=== PATIENT | female | born 1965 | race Caucasian/White ===

== ENCOUNTER 2016-11-06 16:50 | Emergency (ER) | payer OTHER ==
[2016-11-06] MEDS ORDERED: KETOROLAC 30 MG/ML 1 ML VIAL IVP STA (18:46)
[2016-11-06] MEDS ORDERED: SODIUM CHLORIDE 0.9% 1,000 ML IV STA (18:46)
--- NOTE | 2016-11-06 19:05 | ED ---
Abdominal Pain HPI - General Chief Complaint: Abdominal Pain Stated Complaint: Pelvic Pain, Female Time Seen by Provider: 11/06/16 18:41 Source: patient, RN notes reviewed Mode of arrival: wheelchair Limitations: no limitations - History of Present Illness Initial Comments: 51 yo female presents to the ER with cc of left lower quadrant abdominal pain times one day. Patient states she was worked up and she does appear to have a left ovarian cyst as well as a left renal cyst. Patient states the pain STARTED 2 HOURS AGO. Patient states that it started suddenly. Patient states that she hasn't had any fever chills nausea vomiting with this. Patient states that she was concerned due to the fact that the sudden pain so she thought that she should be seen. Patient is holding the left lower pelvic area on exam. Patient denies any recent fever, chills, shortness of breath, chest pain, back pain, nausea vomiting, numbness or tingling, dysuria or hematuria, constipation or diarrhea, headaches or visual changes, or any other current symptoms. - Related Data Home Medications Medication Instructions Recorded Confirmed Atenolol [Tenormin] 25 mg PO BID 08/05/14 11/06/16 Budesonide-Formot 160-4.5 Mcg 2 puff INHALATION RT-BID 08/05/14 11/06/16 [Symbicort 160-4.5 Mcg Inhaler] Loratadine [Claritin] 10 mg PO HS 08/05/14 11/06/16 Albuterol Nebulized [Ventolin 2.5 mg INHALATION RT-TID PRN 11/06/16 11/06/16 Nebulized] Atorvastatin [Lipitor] 20 mg PO DAILY 11/06/16 11/06/16 Furosemide [Lasix] 20 mg PO DAILY 11/06/16 11/06/16 Ipratropium Nebulized [Atrovent 0.5 mg INHALATION RT-TID PRN 11/06/16 11/06/16 Nebulized] Isosorbide Mononitrate ER [Imdur] 30 mg PO DAILY 11/06/16 11/06/16 Previous Rx's Medication Instructions Recorded traMADol HCl [Ultram] 50 mg PO Q4H PRN #20 tab 11/06/16 Allergies Allergy/AdvReac Type Severity Reaction Status Date / Time alprazolam [From Xanax] Allergy Anaphylaxis Verified 11/06/16 18:53 aspirin Allergy Rash/Hives Verified 11/06/16 18:53 azithromycin Allergy Unknown Verified 11/06/16 18:53 bupropion HCl [From Zyban] Allergy Rash/Hives Verified 11/06/16 18:53 codeine Allergy Anaphylaxis Verified 11/06/16 18:53 hydrocodone [From Stephan] Allergy Rash/Hives Verified 11/06/16 18:53 Latex, Natural Rubber Allergy Rash/Hives, Verified 11/06/16 18:53 throat swelling levofloxacin [From Levaquin] Allergy Anaphylaxis Verified 11/06/16 18:53 Penicillins Allergy Rash/Hives Verified 11/06/16 18:53 Review of Systems ROS Statement: Those systems with pertinent positive or pertinent negative responses have been documented in the HPI. ROS Other: All systems not noted in ROS Statement are negative. Past Medical History Past Medical History: Asthma, GERD/Reflux, Hypertension, Skin Disorder Additional Past Medical History / Comment(s): heart murmur as a teen History of Any Multi-Drug Resistant Organisms: None Reported Past Surgical History: Appendectomy, Cholecystectomy, Hernia Repair, Hysterectomy, Tonsillectomy, Tubal Ligation Past Anesthesia/Blood Transfusion Reactions: No Reported Reaction Past Psychological History: Depression Smoking Status: Former smoker Past Alcohol Use History: None Reported Past Drug Use History: None Reported - Past Family History Brother(s) Family Medical History: Deep Vein Thrombosis (DVT) General Exam - General Exam Comments Initial Comments: General: The patient is awake and alert, in no distress, and does not appear acutely ill. Eye: Pupils are equal, round. Ears, nose, mouth and throat: There are moist mucous membranes. Neck: The neck is supple, there is no tenderness. Cardiovascular: There is a regular rate and rhythm. No murmur, rub or gallop is appreciated. Respiratory: Lungs are clear to auscultation, respirations are non-labored, breath sounds are equal. No wheezes, stridor, rales, or rhonchi. Gastrointestinal: Soft, non-distended, non-tender abdomen without masses or organomegaly noted. There is no rebound or guarding present. No CVA tenderness. Bowel sounds are unremarkable. Back: There is no tenderness to palpation in the midline. There is no obvious deformity. No rashes noted. Musculoskeletal: Normal ROM, no tenderness, There is no pedal edema. There is no calf tenderness or swelling. Sensation intact. Pulses equal bilaterally 2+. Neurological: CN II-XII intact, There are no obvious motor or sensory deficits. Coordination appears grossly intact. Speech is normal. Skin: Skin is warm and dry and no rashes or lesions are noted. Psychiatric: Cooperative, appropriate mood & affect, normal judgment. Limitations: no limitations Course Vital Signs 11/06/16 17:07 Temperature 98.7 F Pulse Rate 101 H Respiratory 20 Rate Blood Pressure 151/80 O2 Sat by Pulse 99 Oximetry Medical Decision Making - Medical Decision Making 51-year-old female presents emergency Department chief complaint of left lower quadrant pain. x ray tech report was reviewed that does show a left ovarian cyst as well as a systemic patient's kidney. This does not appear to be any torsion. At this time we discussed patient's pain is most likely from her ovarian cyst due to the location of the pain. Patient's blood work is otherwise negative. This time we did discuss that we will give her tramadol the fact that she is ALLERGIC to Stephan that she was given for home. We discussed return parameters and follow-up with the patient. She states that she understands is in agreement with the plan. All her questions have been answered. She will be discharged. - Lab Data Result diagrams: 11/06/16 19:10 11/06/16 19:10 Lab Results 11/06/16 11/06/16 11/06/16 Range/Units 19:10 19:10 19:10 WBC 6.8 (3.8-10.6) k/uL RBC 4.39 (3.80-5.40) m/uL Hgb 12.7 (11.4-16.0) gm/dL Hct 38.2 (34.0-46.0) % MCV 87.1 (80.0-100.0) fL MCH 29.0 (25.0-35.0) pg MCHC 33.3 (31.0-37.0) g/dL RDW 12.9 (11.5-15.5) % Plt Count 311 (150-450) k/uL Neutrophils % 62 % Lymphocytes % 28 % Monocytes % 5 % Eosinophils % 2 % Basophils % 1 % Neutrophils # 4.2 (1.3-7.7) k/uL Lymphocytes # 1.9 (1.0-4.8) k/uL Monocytes # 0.3 (0-1.0) k/uL Eosinophils # 0.2 (0-0.7) k/uL Basophils # 0.0 (0-0.2) k/uL Sodium 141 (137-145) mmol/L Potassium 4.7 (3.5-5.1) mmol/L Chloride 105 (98-107) mmol/L Carbon Dioxide 26 (22-30) mmol/L Anion Gap 10 mmol/L BUN 6 L (7-17) mg/dL Creatinine 0.70 (0.52-1.04) mg/dL Est GFR (MDRD) Af Amer >60 (>60 ml/min/1.73 sqM) Est GFR (MDRD) Non-Af >60 (>60 ml/min/1.73 sqM) Glucose 94 (74-99) mg/dL Calcium 9.3 (8.4-10.2) mg/dL Total Bilirubin 0.3 (0.2-1.3) mg/dL AST 21 (14-36) U/L ALT 29 (9-52) U/L Alkaline Phosphatase 94 (38-126) U/L Total Protein 7.3 (6.3-8.2) g/dL Albumin 3.9 (3.5-5.0) g/dL Urine Color Light Yellow Urine Appearance Clear (Clear) Urine pH 6.5 (5.0-8.0) Ur Specific [place] 1.002 (1.001-1.035) Urine Protein Negative (Negative) Urine Glucose (UA) Negative (Negative) Urine Ketones Negative (Negative) Urine Blood Negative (Negative) Urine Nitrate Negative (Negative) Urine Bilirubin Negative (Negative) Urine Urobilinogen <2.0 (<2.0) mg/dL Ur Leukocyte Esterase Negative (Negative) - Radiology Data Radiology results: image reviewed Disposition Clinical Impression: Left ovarian cyst, Kidney cysts Disposition: HOME SELF-CARE Condition: Stable Instructions: Ovarian Cyst (ED) Additional Instructions: Please use medication as discussed. Please follow up with family doctor if symptoms have not improved over the next two days. Please return to the emergency room if your symptoms increase or worsen or for any other concerns. Prescriptions: traMADol HCl [Ultram] 50 mg PO Q4H PRN #20 tab PRN Reason: Pain Referrals: Florinda Matos MD [Primary Care Provider] - 1-2 days Time of Disposition: 20:09
[2016-11-06 19:22] LABS: Appearance,Urine Clear (Clear); Bilirubin,Urine Negative (Negative); Glucose,Urine (UA) Negative (Negative); Ketones,Urine Negative (Negative); Leukocyte Esterase,Urine Negative (Negative); Nitrite,Urine Negative (Negative); PH, Urine 6.5 (5.0-8.0); Protein,Urine Negative (Negative); Specific Gravity,Urine 1.002 (1.001-1.035); UA Billing (MACRO vs. MICRO) CHEM; Urobilinogen,Urine <2.0 mg/dL (<2.0)
[2016-11-06 19:23] LABS: Basophils % (A) 1 %; CH 28.3; CHCM 32.6; Eosinophils # (A) 0.2 k/uL (0-0.7); Eosinophils % (A) 2 %; HCT 38.2 % (34.0-46.0); HDW 2.43; HGB 12.7 gm/dL (11.4-16.0); Luc # (Auto) 0.12; Luc % (Auto) 2; Lymphocytes # (A) 1.9 k/uL (1.0-4.8); Lymphocytes % (A) 28 %; MCHC 33.3 g/dL (31.0-37.0); MCV 87.1 fL (80.0-100.0); Mean Platelet Volume 7.3; Monocytes # (A) 0.3 k/uL (0-1.0); Monocytes % (A) 5 %; Neutrophils # (A) 4.2 k/uL (1.3-7.7); Neutrophils % (A) 62 %; RBC 4.39 m/uL (3.80-5.40); RDW 12.9 % (11.5-15.5); WBC 6.8 k/uL (3.8-10.6); WBC (Perox) 6.89
[2016-11-06 19:34] LABS: ALT 29 U/L (9-52); AST 21 U/L (14-36); Alkaline Phosphatase 94 U/L (38-126); Anion Gap 10 mmol/L; Blood Urea Nitrogen 6 mg/dL (7-17); Calcium 9.3 mg/dL (8.4-10.2); Carbon Dioxide 26 mmol/L (22-30); Chloride 105 mmol/L (98-107); Glucose 94 mg/dL (74-99); Non-African American GFR(MDRD) >60 (>60 ml/min/1.73 sqM); Potassium 4.7 mmol/L (3.5-5.1); Sodium 141 mmol/L (137-145); Total Bilirubin 0.3 mg/dL (0.2-1.3); Total Protein 7.3 g/dL (6.3-8.2)
--- NOTE | 2016-11-06 20:16 | US ---
EXAMINATION TYPE: US transvaginal DATE OF EXAM: 11/06/2016 7:56 PM COMPARISON: NONE CLINICAL HISTORY: Pelvic Pain.History of Partial hysterectomy TECHNIQUE: Transvaginal (TV) EXAM MEASUREMENTS: Uterus: Surgically absent Endometrial Stripe: Surgically absent Right Ovary: 2.1 x 1.5 x 1.4 cm Left Ovary: 5.2 x 3.2 x 3.3 cm TECHNOLOGIST IMPRESSION: 1. Uterus: Surgically absent 2. Endometrium: Surgically absent 3. Right Ovary: Pedunculated cystic area visualized measuring 0.7cm 4. Left Ovary: Two cystic areas visualized, largest measuring 4.0 x 3.1 x 2.9 Spectral, color and waveform doppler imaging shows good arterial and venous flow within the ovaries ; there is no evidence for ovarian torsion. 5. Bilateral Adnexa: wnl 6. Posterior cul-de-sac: wnl IMPRESSION: There is normal arterial waveform in the ovarian arteries on the color Doppler images. No evidence of torsion. Simple dominant 4 x 3 cm cyst on the left ovary. No solid pelvic mass. Hysterec erin noted.
--- NOTE | 2016-11-06 20:18 | US ---
EXAMINATION TYPE: US kidneys/renal and bladder DATE OF EXAM: 11/06/2016 7:46 PM COMPARISON: NONE CLINICAL HISTORY: Pain. History of renal cyst per patient. Very difficult/limited exam due to patient body habitus EXAM MEASUREMENTS: Right Kidney: 9.3 x 4.5 x 4.7 cm Left Kidney: 9.4 x 5.5 x 5.1 cm TECHNOLOGIST IMPRESSION: Right Kidney: No hydronephrosis or masses seen Left Kidney: Cyst visualized in the upper pole measuring 7.5 x 7.3 x 6.7 cm Bladder: wnl Bilateral Jets seen: No, not able to visualize bilateral jets after 3 minutes of scanning IMPRESSION: There is a large cyst that measures 7 cm on the upper pole of the left kidney. No solid renal mass. N o hydronephrosis. Urinary bladder appears normal.
[2016-11-06 20:32] VITALS: BP 126/61; PULSE 85; RESP 18; TEMP 98.2
== END 2016-11-06 20:32 | disposition home or self-care (01) ==
LOC: EC 16:50
DX: N83.202 Unspecified ovarian cyst, left side (principal); N28.1 Cyst of kidney, acquired; I10 Essential (primary) hypertension; Z79.899 Other long term (current) drug therapy; Z79.51 Long term (current) use of inhaled steroids; Z87.891 Personal history of nicotine dependence; Z88.0 Allergy status to penicillin; Z88.5 Allergy status to narcotic agent; Z88.8 Allergy status to other drugs, medicaments and biological substances; Z88.6 Allergy status to analgesic agent; Z88.1 Allergy status to other antibiotic agents; Z91.040 Latex allergy status
CPT/HCPCS: 36415; 80053; 85025; 81003; 87086; 93975; 76830; 76770; 99284; 96361; 96374; J1885

== ENCOUNTER → 2016-12-05 | Outpatient (CLI) | payer OTHER ==
--- NOTE | 2016-12-05 15:16 | US ---
EXAMINATION TYPE: US transvaginal DATE OF EXAM: 12/05/2016 1:49 PM COMPARISON: US on PACS November 06, 2016. CLINICAL HISTORY: Left ovarian Cyst N83.20. Prior abnormal ultrasound. TECHNIQUE: Transvaginal (TV) Date of LMP: Uterus removed EXAM MEASUREMENTS: Uterus: Surgically absent cm Endometrial Stripe: Surgically absent cm Right Ovary: 3.6 x 2.1 x 1.7 cm Left Ovary: 3.1 x 1.8 x 1.5 cm 1. Uterus: Surgically Absent 2. Endometrium: Surgically Absent 3. Right Ovary: With follicles. Largest = 1.1 x 1.3 x 1.1 cm 4. Left Ovary: With follicles. Largest = 1.5 x 1.1 x 1.4 cm 5. Bilateral Adnexa: wnl 6. Posterior cul-de-sac: wnl Technically difficult exam d/t pt pain. Peripheral follicles are scattered throughout right ovary sli ghtly larger in size versus prior exam. There are scattered small cystic lesions in left ovary. Previ ously visualized 4.0 cm cystic lesion is not clearly seen. Largest lesion measures up to 1.5 cm on lo ng axis. IMPRESSION: Nonvisualization of prior 4 cm cystic lesion left ovary is consistent with follicular cys t and interval resolution. No suspicious new lesion identified.
== END | disposition home or self-care (01) ==
LOC: RADUSWWP 12:42
PROVIDERS: ATTEND Obstetrics & Gynecology
DX: N83.202 Unspecified ovarian cyst, left side (principal); N83.8 Other noninflammatory disorders of ovary, fallopian tube and broad ligament
CPT/HCPCS: 36415; 76830; 86304

== ENCOUNTER → 2016-12-13 | Day surgery (SDC) | payer OTHER ==
[~2016-12-13] MED LIST: traMADol 50 MG TAB PO STA
[2016-12-13 09:42] LABS: Mean Platelet Volume 7.8
[2016-12-13 09:45] LABS: Prothrombin Time 10.1 sec (9.0-12.0)
[2016-12-13 13:32] VITALS: RESP 18
[2016-12-13 15:43] VITALS: BP 131/66; PULSE 66; TEMP 98.2
--- NOTE | 2016-12-13 15:51 | CT ---
EXAMINATION TYPE: CT guided renal cyst drainage DATE OF EXAM: 12/13/2016 11:49 AM COMPARISON: Ultrasound kidneys October HISTORY: Renal cyst drainage CT DLP: 1616 mGycm Automated exposure control for dose reduction was used. FINDINGS: Maximal barrier technique was utilized. Skin overlying a suitable path to the patient's renal cyst wa s localized with CT and the overlying skin prepped and draped. Lidocaine used for local anesthesia. A skin zain made with a scalpel. A 5 Tamazight catheter was introduced using trocar technique and serous fluid was aspirated from the cyst. Approximately 300 cc of serous fluid were drained. Following the p rocedure catheter was removed and hemostasis achieved. There is no immediate consultation. Patient re mained in stable condition. IMPRESSION: STATUS POST ASPIRATION OF RENAL CYST, THIS PROCEDURE PERFORMED BY THE UNDERSIGNED.
== END ==
LOC: RADPROMAIN 09:08
PROVIDERS: ATTEND Physician Assistant
DX: N28.1 Cyst of kidney, acquired (principal); Z88.0 Allergy status to penicillin; Z88.8 Allergy status to other drugs, medicaments and biological substances; Z88.6 Allergy status to analgesic agent; Z88.1 Allergy status to other antibiotic agents; Z91.012 Allergy to eggs; Z91.040 Latex allergy status; Z88.5 Allergy status to narcotic agent; Z91.018 Allergy to other foods
CPT/HCPCS: 50390; 75989; 77012; 85049; 85610

== ENCOUNTER → 2017-04-17 | Outpatient (CLI) | payer OTHER ==
--- NOTE | 2017-04-23 13:20 | P.ARTDOP ---
Arterial Doppler LOWER EXTREMITY ARTERIAL DOPPLER: DATE OF SERVICE: 04/17/2017 Reason for study: Pain in the left calf with walking and at rest. Doppler waveforms: Multiphasic bilaterally throughout. Pulse volume recording: []. Pressure gradients: None. Ankle-brachial indices: Greater than 1 bilaterally. Toe pressures: 110 on the right, 113 on the left Impression: Normal study.
== END | disposition home or self-care (01) ==
LOC: RADUSWWP 10:16
PROVIDERS: ATTEND Internal Medicine
DX: R60.9 Edema, unspecified (principal)
CPT/HCPCS: 93923

== ENCOUNTER → 2017-05-27 | Outpatient (CLI) | payer OTHER ==
[2017-05-27 09:29] LABS: Basophils % (A) 0 %; CH 28.7; CHCM 32.3; Eosinophils # (A) 0.2 k/uL (0-0.7); Eosinophils % (A) 3 %; HCT 38.2 % (34.0-46.0); HDW 2.47; Luc # (Auto) 0.09; Luc % (Auto) 2; Lymphocytes # (A) 1.3 k/uL (1.0-4.8); Lymphocytes % (A) 20 %; MCHC 31.3 g/dL (31.0-37.0); MCV 89.3 fL (80.0-100.0); Mean Platelet Volume 7.4; Monocytes # (A) 0.3 k/uL (0-1.0); Monocytes % (A) 5 %; Neutrophils # (A) 4.4 k/uL (1.3-7.7); Neutrophils % (A) 71 %; RBC 4.28 m/uL (3.80-5.40); RDW 15.2 % (11.5-15.5); WBC 6.3 k/uL (3.8-10.6); WBC (Perox) 6.28
[2017-05-27 09:33] LABS: Appearance,Urine Cloudy (Clear); Bacteria,Urine Rare /hpf; Bilirubin,Urine Negative (Negative); Glucose,Urine (UA) Negative (Negative); Ketones,Urine Negative (Negative); Leukocyte Esterase,Urine Negative (Negative); Mucus,Urine Rare /hpf; Nitrite,Urine Negative (Negative); PH, Urine 5.5 (5.0-8.0); Particle Count 2191; Protein,Urine Negative (Negative); RBC,Urine 1 /hpf (0-5); Specific Gravity,Urine 1.005 (1.001-1.035); Squamous Epithelial Cell,Urine 6 /hpf (0-4); UA Billing (MACRO vs. MICRO) MICRO; Urobilinogen,Urine <2.0 mg/dL (<2.0); WBC,Urine 1 /hpf (0-5)
[2017-05-27 09:35] LABS: Anion Gap 12 mmol/L; Blood Urea Nitrogen 7 mg/dL (7-17); Calcium 9.2 mg/dL (8.4-10.2); Carbon Dioxide 22 mmol/L (22-30); Chloride 107 mmol/L (98-107); Glucose 86 mg/dL (74-99); Non-African American GFR(MDRD) >60 (>60 ml/min/1.73 sqM); Potassium 4.3 mmol/L (3.5-5.1); Sodium 141 mmol/L (137-145)
== END | disposition home or self-care (01) ==
LOC: LABWHC1 08:58
PROVIDERS: ATTEND Urology
DX: I10 Essential (primary) hypertension (principal); N28.1 Cyst of kidney, acquired; Z01.812 Encounter for preprocedural laboratory examination
CPT/HCPCS: 36415; 80048; 81001; 85025; 87086

== ENCOUNTER 2017-06-04 07:04 | Inpatient (IN) | payer OTHER ==
[2017-05-30 15:50] VITALS: BMI 40.7
[~2017-06-04 07:04] MED LIST changes: +LACTATED RINGERS 1,000 ML IV SCH; +Pre Op ABX Message 1 EACH MISC MISCELLANE ONE; +fentaNYL (PF) 50 MCG/ML 2 ML AMP IV PRN; -traMADol 50 MG TAB PO STA
[2017-06-04] MEDS ORDERED: LIDOCAINE 1% 20 ML VIAL (10MG/ML) FOR IV START INTRADERMA ONE (08:00)
[2017-06-04] MEDS ORDERED: ONDANSETRON 4 MG/2 ML VIAL IVP ONE (08:06)
[2017-06-04] MEDS ORDERED: SCOPOLAMINE 1.5MG/72HR PATCH TRANSDERM ONE (08:09)
[2017-06-04] MEDS ORDERED: DEXAMETHASONE SOD PHOS (MDV) 100 MG/10 ML VIAL IVP ONE (08:09)
[2017-06-04] MEDS ORDERED: NEOSTIGMINE 1 MG/ML 10 ML VIAL ONE (08:27)
[2017-06-04] MEDS ORDERED: HYDROmorphone (PF) 1 MG/ML ONE (08:27)
[2017-06-04] MEDS ORDERED: SUCCINYLCHOLINE CHLORIDE 100 MG/5 ML SYR IV ONE (08:27)
[2017-06-04] MEDS ORDERED: GLYCOPYRROLATE 0.2 MG/ML 2 ML VIAL ONE (08:27)
[2017-06-04] MEDS ORDERED: fentaNYL (PF) 50 MCG/ML 2 ML AMP ONE (08:27)
[2017-06-04] MEDS ORDERED: PROPOFOL 10 MG/ML 20 ML VIAL IV ONE (08:27)
[2017-06-04] MEDS ORDERED: MIDAZOLAM 2 MG/2 ML VIAL ONE (08:27)
[2017-06-04] MEDS ORDERED: ROCURONIUM BROMIDE 10 MG/ML 10 ML VIAL IV ONE (08:27)
[2017-06-04] MEDS ORDERED: PHENYLEPHRINE-0.9% NACL SYG 1 MG/10 ML SYRINGE ONE (08:27)
[2017-06-04] MEDS ORDERED: ONDANSETRON 4 MG/2 ML VIAL IVP PRN (10:22)
[2017-06-04] MEDS ORDERED: NALOXONE 0.4 MG/ML 1 ML VIAL IV PRN (10:22)
--- NOTE | 2017-06-04 10:27 | P.OP ---
Date of Procedure: 06/04/17 Preoperative Diagnosis: Painful left renal cyst Postoperative Diagnosis: Same Procedure(s) Performed: Left renal exploration with decortication of left renal cyst Anesthesia: KIRAN Surgeon: Tank Castellano Primary Care Coordinator #1: Nirmal Simmons Estimated Blood Loss (ml): 50 Pathology: other (Renal cyst) Condition: stable Disposition: PACU Indications for Procedure: The patient is a 52-year-old female who presented with a 13 cm renal cyst and left upper quadrant discomfort. Cyst aspiration was obtained and her discomfort when away only to return. Repeat computed tomography scan showed the cyst at 6 cm. She wants assist removed. I explained to her may not be the cause of her pain. I explained to her the risks of the surgery. She comes for this procedure. Alternative surgeries or referral of been discussed and declined. Description of Procedure: Patient is brought to the operating suite and given a successful general endotracheal anesthesia. A left Chevron incision is made. I dissect through the rectus and oblique fascias. The peritoneum was opened. I incise white line of Toldt and reflect the colon medially. I come down and drug's fascia. I feel the kidney. I moved to the upper pole the kidney until the cyst. I dissect around the cyst such that the anterior aspect of the cyst up to the top of the cyst identified. 2 3-0 chromic stitches are placed as stay stitches. The cystoscope and with electrocautery. Clear yellow fluid is drained. I excised the exposed portion of the cyst with electrocautery. I place a Surgicel in the base of the cyst to irritated and opted leakage. A Victoriano- Rojas drain is brought through separate stab incision. The bowel was allowed to fall back in the left upper quadrant. The wound was closed with 3 layers and #1 Vicryl. The skin is stapled the patient awake and returned recovery room good condition. Blood loss was 50 mL.
[2017-06-04] MEDS: HYDROmorphone 1 MG/ML 1 ML SYRINGE IVP ONE ×2 (10:45→11:18)
[2017-06-04] MEDS ORDERED: LACTATED RINGERS 1,000 ML IV ONE ×2 (11:07)
[2017-06-04] MEDS: HYDROmorphone PCA 5 MG/25 ML SYRINGE IV PRN (14:00)
[2017-06-04] MEDS: diphenhydrAMINE 25 MG CAP PO PRN (18:32)
[2017-06-04] MEDS: DEXTROSE 5%-0.45% NACL 1,000 ML IV SCH (19:39)
[2017-06-04] MEDS: SYMBICORT 160-4.5 MCG INHALER INHALATION SCH (20:42)
[2017-06-04] MEDS: IPRATROPIUM 0.5 MG/2.5 ML NEBU INHALATION SCH (20:42)
[2017-06-04] MEDS: ALBUTEROL NEBULIZED 2.5 MG/3 ML INHALATION PRN (20:42)
[2017-06-04] MEDS: HEPARIN SODIUM,PORCINE 5,000 UNIT/ML 1 ML VIAL SQ SCH (20:56)
[2017-06-04] MEDS: METOPROLOL TARTRATE 25 MG TAB PO SCH (20:56)
[2017-06-04] MEDS: LORATADINE 10 MG TAB PO SCH (20:57)
[2017-06-04] MEDS: KETOROLAC 30 MG/ML 1 ML VIAL IVP PRN (21:20)
[2017-06-05] MEDS: diphenhydrAMINE 25 MG CAP PO PRN (00:58)
[2017-06-05] MEDS: DEXTROSE 5%-0.45% NACL 1,000 ML IV SCH ×3 (05:17→16:03)
[2017-06-05] MEDS: KETOROLAC 30 MG/ML 1 ML VIAL IVP PRN ×3 (05:17→18:39)
[2017-06-05] MEDS: ALBUTEROL NEBULIZED 2.5 MG/3 ML INHALATION PRN (07:30)
[2017-06-05] MEDS: IPRATROPIUM 0.5 MG/2.5 ML NEBU INHALATION SCH ×2 (07:30→14:05)
[2017-06-05] MEDS: SYMBICORT 160-4.5 MCG INHALER INHALATION SCH ×2 (07:31→20:03)
[2017-06-05] MEDS: ATORVASTATIN 20 MG TAB PO SCH (08:39)
[2017-06-05] MEDS: HEPARIN SODIUM,PORCINE 5,000 UNIT/ML 1 ML VIAL SQ SCH ×2 (08:39→21:43)
[2017-06-05] MEDS: ISOSORBIDE MONONITRATE ER 30 MG TAB.ER.24H PO SCH (09:32)
[2017-06-05] MEDS: METOPROLOL TARTRATE 25 MG TAB PO SCH ×2 (09:32→22:00)
[2017-06-05] MEDS ORDERED: IPRATROPIUM-ALBUTEROL 3 ML NEB INHALATION PRN (13:54)
[2017-06-05] MEDS: IPRATROPIUM-ALBUTEROL 3 ML NEB INHALATION SCH ×2 (13:59→20:03)
--- NOTE | 2017-06-05 15:06 | P.PN ---
Subjective Principal diagnosis: POD #1, s/p unroofing of left renal cyst. The patient is ambulating. She is tolerating diet in small amounts. She reports incisional discomfort but is otherwise feeling well. Objective - Vital Signs Vital signs: Vital Signs Temp 97.0 F L 06/05/17 12:21 Pulse 80 06/05/17 14:09 Resp 16 06/05/17 12:21 BP 119/64 06/05/17 12:21 Pulse Ox 94 L 06/05/17 12:21 Intake & Output 06/04/17 06/05/17 06/05/17 18:59 06:59 18:59 Intake Total 1200 400 Output Total 215 880 280 Balance 985 -880 120 Weight 104.326 kg Intake: IV 1200 Oral 400 Output: Drainage 40 30 30 Left Abdomen 40 30 30 Urine 150 850 250 Uretheral (Garner) 350 Estimated Blood Loss 25 Other: Voiding Method Indwelling Catheter Indwelling Catheter - Constitutional General appearance: Present: no acute distress - Gastrointestinal Gastrointestinal Comment(s): Incision clean and dry General gastrointestinal: Present: soft. Absent: distended Assessment and Plan Plan: Doing well. Advance diet as tolerated. Anticipate discharge home in 1-2 days, once her pain can be controlled with oral analgesics.
[2017-06-05] MEDS: HYDROmorphone PCA 5 MG/25 ML SYRINGE IV PRN (21:31)
[2017-06-05] MEDS: LORATADINE 10 MG TAB PO SCH (21:43)
[2017-06-06] MEDS: KETOROLAC 30 MG/ML 1 ML VIAL IVP PRN ×2 (01:27→07:49)
--- NOTE | 2017-06-06 07:39 | P.PN ---
Subjective The patient underwent a left renal decortication of an upper pole cyst on 2016. She still has incisional pain. Her drainage is minimal drainage removed. Incision looks good. Her vital signs are stable. She complains of some shortness of breath which is both acute and chronic. I suspect she has some splinting due to the incisional pain. I will get a chest x-ray to make sure there is no other issues. She will continue to use her incentive spirometer and ambulate. As long as her chest x-ray looks clear she can be discharged home when the pain is controlled on oral medications. Objective - Vital Signs Vital signs: Vital Signs Temp 97.1 F L 06/05/17 23:00 Pulse 86 06/06/17 00:00 Resp 20 06/06/17 00:00 BP 130/66 06/05/17 23:00 Pulse Ox 96 06/05/17 23:00 Intake & Output 06/05/17 06/06/17 06/06/17 18:59 06:59 18:59 Intake Total 400 400 Output Total 680 1330 200 Balance -280 -930 -200 Intake: Oral 400 400 Output: Drainage 30 20 Left Abdomen 30 20 Urine 650 1310 200 Other: Voiding Method Toilet # Voids 1
[2017-06-06] MEDS: ISOSORBIDE MONONITRATE ER 30 MG TAB.ER.24H PO SCH (07:48)
[2017-06-06] MEDS: METOPROLOL TARTRATE 25 MG TAB PO SCH ×2 (07:49→20:57)
[2017-06-06] MEDS: HEPARIN SODIUM,PORCINE 5,000 UNIT/ML 1 ML VIAL SQ SCH ×2 (07:49→20:57)
[2017-06-06] MEDS: SYMBICORT 160-4.5 MCG INHALER INHALATION SCH ×2 (09:10→19:51)
[2017-06-06] MEDS: IPRATROPIUM-ALBUTEROL 3 ML NEB INHALATION SCH ×3 (09:11→19:51)
[2017-06-06] MEDS: ATORVASTATIN 20 MG TAB PO SCH (09:12)
[2017-06-06] MEDS: DEXTROSE 5%-0.45% NACL 1,000 ML IV SCH (10:12)
--- NOTE | 2017-06-06 10:16 | XR ---
EXAMINATION TYPE: XR chest 2V DATE OF EXAM: 06/06/2017 COMPARISON: 05/22/2016 TECHNIQUE: PA and lateral views submitted. HISTORY: Shortness of breath FINDINGS: Bilateral subsegmental consolidation noted. No pneumothorax. No overt failure. Arthropathy of the dejan ulders noted. Heart size stable. Degenerative change of the spine. IMPRESSION: 1. Bilateral lower lobe infiltrate and small effusion. Correlate clinically.
[2017-06-06] MEDS: LORATADINE 10 MG TAB PO SCH (20:57)
[2017-06-06] MEDS: traMADol 50 MG TAB PO PRN (21:13)
[2017-06-06] MEDS: ACETAMINOPHEN TAB 325 MG TAB PO PRN (23:53)
[2017-06-07] MEDS: traMADol 50 MG TAB PO PRN ×4 (02:41→21:04)
[2017-06-07] MEDS: ACETAMINOPHEN TAB 325 MG TAB PO PRN ×3 (07:41→20:12)
[2017-06-07] MEDS: IPRATROPIUM-ALBUTEROL 3 ML NEB INHALATION SCH ×3 (08:36→20:38)
[2017-06-07] MEDS: SYMBICORT 160-4.5 MCG INHALER INHALATION SCH ×2 (08:36→20:38)
--- NOTE | 2017-06-07 09:01 | P.PN ---
Progress Note - Text The patient is on postop day 3 following decortication of a left upper pole renal cyst. She is afebrile and normotensive. She is tolerating a diet but says she's not very hungry. She has been ambulatory to some extent. She had a chest x-ray yesterday that showed possible bilateral basilar infiltrates versus atelectasis. Unfortunately the patient is not doing her incentive spirometry as often as directed. 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 The patient says that she is unable to be discharged at this time because the person that she lives with will be gone until Friday. Chest-scattered bibasilar crackles-no wheezing Cardiac-regular rhythm-no murmur Abdomen-incision is dry and uninflamed. Moderate left upper quadrant pain. Impression-satisfactory recovery following decortication of left upper pole renal cyst. The patient was encouraged to increase her spirometry and ambulation. It's unclear whether the patient would be able to be discharged tomorrow if she has no one to assist her at home.
[2017-06-07] MEDS: ISOSORBIDE MONONITRATE ER 30 MG TAB.ER.24H PO SCH (09:07)
[2017-06-07] MEDS: ATORVASTATIN 20 MG TAB PO SCH (09:07)
[2017-06-07] MEDS: METOPROLOL TARTRATE 25 MG TAB PO SCH ×2 (09:08→21:04)
[2017-06-07] MEDS: HEPARIN SODIUM,PORCINE 5,000 UNIT/ML 1 ML VIAL SQ SCH ×2 (09:08→21:04)
[2017-06-07] MEDS: diphenhydrAMINE 25 MG CAP PO PRN (13:28)
[2017-06-07] MEDS: DEXTROSE 5%-0.45% NACL 1,000 ML IV SCH ×2 (14:51→14:55)
[2017-06-07] MEDS: LORATADINE 10 MG TAB PO SCH (21:04)
[2017-06-08] MEDS: ACETAMINOPHEN TAB 325 MG TAB PO PRN ×3 (02:33→20:29)
[2017-06-08] MEDS: traMADol 50 MG TAB PO PRN ×3 (03:02→16:43)
[2017-06-08] MEDS: METOPROLOL TARTRATE 25 MG TAB PO SCH ×2 (07:48→20:31)
[2017-06-08] MEDS: ATORVASTATIN 20 MG TAB PO SCH (07:49)
[2017-06-08] MEDS: ISOSORBIDE MONONITRATE ER 30 MG TAB.ER.24H PO SCH (07:49)
[2017-06-08] MEDS: IPRATROPIUM-ALBUTEROL 3 ML NEB INHALATION SCH ×3 (07:52→19:37)
[2017-06-08] MEDS: SYMBICORT 160-4.5 MCG INHALER INHALATION SCH ×2 (07:52→19:37)
[2017-06-08] MEDS: HEPARIN SODIUM,PORCINE 5,000 UNIT/ML 1 ML VIAL SQ SCH ×2 (07:52→20:29)
--- NOTE | 2017-06-08 08:38 | P.PN ---
Progress Note - Text The patient is afebrile and appears comfortable although she rates her pain as a 9-10 out of 10. She has been ambulatory although she uses a walker because she says she sometimes dizzy. She appears to be tolerating a regular diet although she says her appetite is not good. She denies any shortness of breath. Abdomen-incision is dry. I discussed the possibility of discharge with the patient but she says that this will not be possible today because she does not have transportation or anyone at home to help her with ambulation. She says that it will be possible for her to be discharged in the morning.
[2017-06-08] MEDS: FUROSEMIDE 20 MG TAB PO PRN (09:50)
[2017-06-08 18:36] LABS: Glucose,Whole Blood 85 mg/dL (75-99)
[2017-06-08] MEDS ORDERED: MAGNESIUM HYDROXIDE 2,400 MG/10 ML CUP PO PRN (18:40)
[2017-06-08] MEDS: LORATADINE 10 MG TAB PO SCH (20:31)
[2017-06-09] MEDS: ACETAMINOPHEN TAB 325 MG TAB PO PRN (02:53)
[2017-06-09] MEDS ORDERED: BISACODYL 10 MG SUPP RECTAL PRN (07:00)
--- NOTE | 2017-06-09 07:00 | P.DS ---
Providers Date of admission: 06/04/17 07:04 Attending physician: Tank Castellano Primary care physician: Joaquim [facility] Hospital Course: The patient is a 52-year-old female who had a large left renal cyst. It was causing her pain and thus an aspiration was performed with relief of her pain. The cyst reaccumulated thus she was admitted for a decortication of her left renal cyst. This was done 06/04/2017. She had some atelectasis postoperatively. Zoll with pulmonary therapy. I was advance and she has improved with air. She is still having discomfort which I think is somewhat chronic for this patient. He is passing gas. Her vital signs are stable and she is afebrile. She'll be discharged home today in care of family regular diet limited activity. She'll follow-up in the office suite for staple removal. She's been given a prescription of [place]. Instructed to contact us with any problems. Patient Condition at Discharge: Good Plan - Discharge Summary New Discharge Prescriptions: New HYDROcodone/APAP 5-325MG [[place] 5-325] 1 tab PO Q4HR PRN #30 tab PRN Reason: Pain Control No Action Loratadine [Claritin] 10 mg PO HS Budesonide-Formot 160-4.5 Mcg [Symbicort 160-4.5 Mcg Inhaler] 2 puff INHALATION RT-BID Ipratropium Nebulized [Atrovent Nebulized] 0.5 mg INHALATION RT-TID Furosemide [Lasix] 20 mg PO DAILY PRN PRN Reason: Edema Albuterol Nebulized [Ventolin Nebulized] 2.5 mg INHALATION RT-TID PRN PRN Reason: Shortness Of Breath Isosorbide Mononitrate ER [Imdur] 30 mg PO DAILY Atorvastatin [Lipitor] 20 mg PO DAILY Metoprolol Tartrate [Lopressor] 25 mg PO BID Discharge Medication List Budesonide-Formot 160-4.5 Mcg [Symbicort 160-4.5 Mcg Inhaler] 2 puff INHALATION RT-BID 08/05/14 [History] Loratadine [Claritin] 10 mg PO HS 08/05/14 [History] Albuterol Nebulized [Ventolin Nebulized] 2.5 mg INHALATION RT-TID PRN 11/06/16 [ History] Atorvastatin [Lipitor] 20 mg PO DAILY 11/06/16 [History] Furosemide [Lasix] 20 mg PO DAILY PRN 11/06/16 [History] Ipratropium Nebulized [Atrovent Nebulized] 0.5 mg INHALATION RT-TID 11/06/16 [ History] Isosorbide Mononitrate ER [Imdur] 30 mg PO DAILY 11/06/16 [History] Metoprolol Tartrate [Lopressor] 25 mg PO BID 05/30/17 [History] HYDROcodone/APAP 5-325MG [[place] 5-325] 1 tab PO Q4HR PRN #30 tab 06/09/17 [Rx] Follow up Appointment(s)/Referral(s): Tank Castellano MD [STAFF PHYSICIAN] - 06/13/17 Discharge Disposition: HOME SELF-CARE
[2017-06-09] MEDS: IPRATROPIUM-ALBUTEROL 3 ML NEB INHALATION SCH (08:11)
[2017-06-09] MEDS: SYMBICORT 160-4.5 MCG INHALER INHALATION SCH (08:11)
[2017-06-09] MEDS: HEPARIN SODIUM,PORCINE 5,000 UNIT/ML 1 ML VIAL SQ SCH (08:14)
[2017-06-09] MEDS: ISOSORBIDE MONONITRATE ER 30 MG TAB.ER.24H PO SCH (08:15)
[2017-06-09] MEDS: METOPROLOL TARTRATE 25 MG TAB PO SCH (08:15)
[2017-06-09] MEDS: ATORVASTATIN 20 MG TAB PO SCH (08:15)
[2017-06-09 08:32] VITALS: BP 121/87; PULSE 96; RESP 20; TEMP 98.1
[2017-06-09] MEDS: FUROSEMIDE 20 MG TAB PO PRN (09:05)
--- NOTE | 2017-06-15 14:23 | CDI ---
In responding to this query, please exercise your independent professional judgment. The [facility] Coding Staff and Clinical Documentation Specialists appreciate your assistance in clarifying documentation, maintaining compliance with coding guidelines, accurately documenting patients condition and capturing severity of illness. The fact that a question is asked does not imply that any particular answer is desired or expected. Communication forms are a method of clarifying documentation and are not made part of the Legal Health Record. Thank you in advance for your clarification. Last Revision, November 2015 [facility] [address] [facility] [place] [address] Documentation Clarification Form Date: 06/15/2017 2:14:00 PM From: Shobha Lawson Admit Date: 06/04/2017 7:04:00 AM Patient Name: Silva Kwon Visit Number: [id number] Discharge Date: 06/09/17 Dr. Tank Castellano The final diagnosis of the pathology report states : CYSTIC CLEAR CELL RENAL CELL CARCINOMA WITH REGRESSION, MICHELLE NUCLEAR GRADE 1 OUT OF 4. MARGINS ARE NEGATIVE. Treatment: Left renal exploration with decortication of left renal cyst In your professional opinion, do you agree with the pathology report specifying the left kidney cyst as cystic cleart renal cell carcinoma? Yes No Other (please specify) Unable to determine Please document addendum in your discharge summary in order to capture severity of illness and risk of mortality. Include clinical findings that support your diagnosis. FYI: Press F11 to launch patient chart If you have a question about this query, please contact Priya Salazar, Administrative Hearing Officer, [facility] at [phone] between 8am and 5pm. MIKE
--- NOTE | 2017-06-18 09:08 | P.DS ---
Providers Date of admission: 06/04/17 07:04 Attending physician: Tank Ramírez Primary care physician: Joaquim Barbara [facility] [place] Course: Addendum to the discharge summary. Pathology came back a tiny amount of clear cell carcinoma margin negative in the cystoscopy. Because of this the patient' s kidney will need to be observed closely. This will be discussed with the patient. Patient Condition at Discharge: Good Plan - Discharge Summary New Discharge Prescriptions: No Action Loratadine [Claritin] 10 mg PO HS Budesonide-Formot 160-4.5 Mcg [Symbicort 160-4.5 Mcg Inhaler] 2 puff INHALATION RT-BID Ipratropium Nebulized [Atrovent Nebulized] 0.5 mg INHALATION RT-TID Furosemide [Lasix] 20 mg PO DAILY PRN PRN Reason: Edema Albuterol Nebulized [Ventolin Nebulized] 2.5 mg INHALATION RT-TID PRN PRN Reason: Shortness Of Breath Isosorbide Mononitrate ER [Imdur] 30 mg PO DAILY Atorvastatin [Lipitor] 20 mg PO DAILY Metoprolol Tartrate [Lopressor] 25 mg PO BID traMADol HCL [Ultram] 50 mg PO Q6HR PRN PRN Reason: Pain Docusate [Colace] 100 mg PO DAILY Albuterol Inhaler [Ventolin Hfa Inhaler] 2 puff INHALATION RT-QID PRN PRN Reason: Shortness Of Breath Acetaminophen Tab [Tylenol Tab] 1,000 mg PO Q6HR PRN PRN Reason: Pain Or Fever > 100.5 Discharge Medication List Budesonide-Formot 160-4.5 Mcg [Symbicort 160-4.5 Mcg Inhaler] 2 puff INHALATION RT-BID 08/05/14 [History] Loratadine [Claritin] 10 mg PO HS 08/05/14 [History] Albuterol Nebulized [Ventolin Nebulized] 2.5 mg INHALATION RT-TID PRN 11/06/16 [ History] Atorvastatin [Lipitor] 20 mg PO DAILY 11/06/16 [History] Furosemide [Lasix] 20 mg PO DAILY PRN 11/06/16 [History] Ipratropium Nebulized [Atrovent Nebulized] 0.5 mg INHALATION RT-TID 11/06/16 [ History] Isosorbide Mononitrate ER [Imdur] 30 mg PO DAILY 11/06/16 [History] Metoprolol Tartrate [Lopressor] 25 mg PO BID 05/30/17 [History] Acetaminophen Tab [Tylenol Tab] 1,000 mg PO Q6HR PRN 06/11/17 [History] Albuterol Inhaler [Ventolin Hfa Inhaler] 2 puff INHALATION RT-QID PRN 06/11/17 [ History] Docusate [Colace] 100 mg PO DAILY 06/11/17 [History] traMADol HCL [Ultram] 50 mg PO Q6HR PRN 06/11/17 [History] Follow up Appointment(s)/Referral(s): Tank Ramírez MD [STAFF PHYSICIAN] - 06/13/17 (06-13-17 at 11:00) Activity/Diet/Wound Care/Special Instructions: FOLLOW UP WITH DR RAMÍREZ ON 06-13-17, SOONER IF PROBLEMS OR CONCERNS. IE FEVER, CHILLS, DIFFICULTY WITH URINATION OR PAINFUL URINATION. REDNESS OR FOUL SMELLING DRAINAGE FROM INCISION LINE. FOLLOW UP WITH PRIMARY CARE IN 1 TO 2 DAY PAIN MEDICATION CHANGED TO TRAMADOL. TAKE DIRECTED. Discharge Disposition: HOME SELF-CARE
== END 2017-06-09 10:48 | disposition home or self-care (01) | DRG 657 ==
LOC: 2ORMAIN 07:04 → 6PED 10:18
PROVIDERS: ADMIT Urology; ATTEND Urology
PROC: 0TD Urinary System, Extraction (ICD-10-PCS; principal; 2017-06-04 08:30)
DX: C64.2 Malignant neoplasm of left kidney, except renal pelvis (principal); J98.11 Atelectasis; N28.1 Cyst of kidney, acquired; I10 Essential (primary) hypertension; Z88.0 Allergy status to penicillin; Z88.8 Allergy status to other drugs, medicaments and biological substances; Z88.6 Allergy status to analgesic agent; Z88.1 Allergy status to other antibiotic agents; Z91.041 Radiographic dye allergy status; Z91.012 Allergy to eggs; Z91.040 Latex allergy status; Z88.5 Allergy status to narcotic agent; Z91.018 Allergy to other foods; I83.90 Asymptomatic varicose veins of unspecified lower extremity; K21.9 Gastro-esophageal reflux disease without esophagitis; Z85.41 Personal history of malignant neoplasm of cervix uteri; M19.91 Primary osteoarthritis, unspecified site; Z90.49 Acquired absence of other specified parts of digestive tract; Z90.710 Acquired absence of both cervix and uterus; Z87.891 Personal history of nicotine dependence; Z79.51 Long term (current) use of inhaled steroids; Z79.899 Other long term (current) drug therapy
CPT/HCPCS: 71020; 88305; 88341; 88342; 93005; 94640; 94760

== ENCOUNTER 2017-06-11 10:36 | Inpatient (IN) | payer OTHER ==
[2017-06-11] MEDS ORDERED: IPRATROPIUM-ALBUTEROL 3 ML NEB INHALATION STA (11:16)
--- NOTE | 2017-06-11 11:22 | ED ---
SOB HPI - General Source: patient, RN notes reviewed Mode of arrival: wheelchair Limitations: no limitations <Gopal Best - Last Filed: 06/11/17 13:44> <Arnold Smith - Last Filed: 06/11/17 14:11> - General Chief Complaint: Shortness of Breath Stated Complaint: Post op kidney cyst Time Seen by Provider: 06/11/17 11:03 - History of Present Illness Initial Comments: 52-year-old female presents emergency Department chief complaint shortness of breath. Patient states that she had a left renal cyst removed by Dr. Dye one week ago discharged on Friday. Patient states that she has noticed is productive cough and that she just feels short of breath. She is concerned that she has alsoswelling to her lower extremities are without her left lower extremity which she states that she's had this in the past. Denies any pain associated with this. Patient denies fever, chills. Patient states is a large incision on her abdomen which has not changed she's had no increase abdominal discomfort. Denies any dysuria or hematuria. (Gopal Best) - Related Data Home Medications Medication Instructions Recorded Confirmed Budesonide-Formot 160-4.5 Mcg 2 puff INHALATION RT-BID 08/05/14 06/11/17 [Symbicort 160-4.5 Mcg Inhaler] Loratadine [Claritin] 10 mg PO HS 08/05/14 06/11/17 Albuterol Nebulized [Ventolin 2.5 mg INHALATION RT-TID PRN 11/06/16 06/11/17 Nebulized] Atorvastatin [Lipitor] 20 mg PO DAILY 11/06/16 06/11/17 Furosemide [Lasix] 20 mg PO DAILY PRN 11/06/16 06/11/17 Ipratropium Nebulized [Atrovent 0.5 mg INHALATION RT-TID 11/06/16 06/11/17 Nebulized] Isosorbide Mononitrate ER [Imdur] 30 mg PO DAILY 11/06/16 06/11/17 Metoprolol Tartrate [Lopressor] 25 mg PO BID 05/30/17 06/11/17 Acetaminophen Tab [Tylenol Tab] 1,000 mg PO Q6HR PRN 06/11/17 06/11/17 Albuterol Inhaler [Ventolin Hfa 2 puff INHALATION RT-QID PRN 06/11/17 06/11/17 Inhaler] Docusate [Colace] 100 mg PO DAILY 06/11/17 06/11/17 traMADol HCL [Ultram] 50 mg PO Q6HR PRN 06/11/17 06/11/17 Allergies Allergy/AdvReac Type Severity Reaction Status Date / Time alprazolam [From Xanax] Allergy Anaphylaxis Verified 06/11/17 11:29 aspirin Allergy Rash/Hives Verified 06/11/17 11:29 azithromycin Allergy Rapid Verified 06/11/17 11:29 Heart Rate bupropion HCl [From Zyban] Allergy Rash/Hives Verified 06/11/17 11:29 codeine Allergy Anaphylaxis Verified 06/11/17 11:29 hydrocodone [From [place]] Allergy Rash/Hives Verified 06/11/17 11:29 Latex, Natural Rubber Allergy Rash/Hives, Verified 06/11/17 11:29 throat swelling levofloxacin [From Levaquin] Allergy Anaphylaxis Verified 06/11/17 11:29 Penicillins Allergy Rash/Hives Verified 06/11/17 11:29 Review of Systems ROS Other: All systems not noted in ROS Statement are negative. <Gopal Best - Last Filed: 06/11/17 13:44> ROS Other: All systems not noted in ROS Statement are negative. <Arnold Smith - Last Filed: 06/11/17 14:11> ROS Statement: Those systems with pertinent positive or pertinent negative responses have been documented in the HPI. Past Medical History Past Medical History: Asthma, COPD, GERD/Reflux, Hypertension, Skin Disorder Additional Past Medical History / Comment(s): heart murmur as a teen History of Any Multi-Drug Resistant Organisms: None Reported Past Surgical History: Appendectomy, Cholecystectomy, Hernia Repair, Hysterectomy, Tonsillectomy, Tubal Ligation Additional Past Surgical History / Comment(s): cyst on left kidney removed Past Anesthesia/Blood Transfusion Reactions: No Reported Reaction Past Psychological History: No Psychological Hx Reported Smoking Status: Former smoker Past Alcohol Use History: None Reported Past Drug Use History: None Reported - Past Family History Mother Family Medical History: Cancer, Sleep Apnea/CPAP/BIPAP Brother(s) Family Medical History: Deep Vein Thrombosis (DVT) <Dedoe,Gopal M - Last Filed: 06/11/17 13:44> General Exam Limitations: no limitations General appearance: alert, in no apparent distress Head exam: Present: atraumatic, normocephalic, normal inspection Eye exam: Present: normal appearance, PERRL, EOMI. Absent: scleral icterus, conjunctival injection, periorbital swelling ENT exam: Present: normal exam, normal oropharynx, mucous membranes moist Neck exam: Present: normal inspection. Absent: tenderness, meningismus, lymphadenopathy Respiratory exam: Present: normal lung sounds bilaterally. Absent: respiratory distress, wheezes, rales, rhonchi, stridor Cardiovascular Exam: Present: regular rate, normal rhythm, normal heart sounds. Absent: systolic murmur, diastolic murmur, rubs, gallop, clicks GI/Abdominal exam: Present: soft, tenderness (Moderate), normal bowel sounds, other (Large incision with gurjit in place minimal erythema on the borders). Absent: distended, guarding, rebound, rigid Extremities exam: Present: pedal edema (Bilateral greater on the left compared to the right) Psychiatric exam: Present: normal affect, normal mood Skin exam: Present: warm, dry, intact, normal color. Absent: rash <Gopal Best - Last Filed: 06/11/17 13:44> Course <Gopal Best - Last Filed: 06/11/17 13:44> <Arnold Smith - Last Filed: 06/11/17 14:11> Vital Signs 06/11/17 06/11/17 06/11/17 10:56 11:50 12:01 Temperature 98.4 F Pulse Rate 92 92 90 Respiratory 20 20 Rate Blood Pressure 143/88 O2 Sat by Pulse 97 Oximetry 06/11/17 13:53 Temperature 97.9 F Pulse Rate 97 Respiratory 17 Rate Blood Pressure 160/97 O2 Sat by Pulse 95 Oximetry - Reevaluation(s) Reevaluation #1: 06/11/17 14:00 PA supervision: Admitted personally evaluate the patient didn't [id number] examination. Patient did demonstrate dyspnea. There is evidence of bilateral pneumonia on the x-ray. He has skin was performed negative for PE. I did evaluate the incision site the incision line is intact with gurjit still present. Localized tissue reaction to the gurjit. Patient will be admitted for bilateral pneumonia and dyspnea. I did discuss case with Dr. Gonsalez. Dr. Barrett will be consulted. Urology will be notified. 06/11/17 14:11 (Arnold Smith) Medical Decision Making - Lab Data Result diagrams: 06/11/17 11:29 06/11/17 11:29 <Gopal Best - Last Filed: 06/11/17 13:44> - Lab Data Result diagrams: 06/11/17 11:29 06/11/17 11:29 <Arnold Smith - Last Filed: 06/11/17 14:11> - Lab Data Lab Results 06/11/17 06/11/17 06/11/17 Range/Units 11:29 11:29 11:29 WBC 8.8 (3.8-10.6) k/uL RBC 4.03 (3.80-5.40) m/uL Hgb 11.3 L (11.4-16.0) gm/dL Hct 35.7 (34.0-46.0) % MCV 88.6 (80.0-100.0) fL MCH 28.1 (25.0-35.0) pg MCHC 31.7 (31.0-37.0) g/dL RDW 15.2 (11.5-15.5) % Plt Count 384 (150-450) k/uL Neutrophils % 73 % Lymphocytes % 18 % Monocytes % 5 % Eosinophils % 3 % Basophils % 0 % Neutrophils # 6.4 (1.3-7.7) k/uL Lymphocytes # 1.6 (1.0-4.8) k/uL Monocytes # 0.4 (0-1.0) k/uL Eosinophils # 0.2 (0-0.7) k/uL Basophils # 0.0 (0-0.2) k/uL PT 10.1 (9.0-12.0) sec INR 1.0 (<1.2) APTT 22.6 (22.0-30.0) sec D-Dimer 1.18 H (<0.60) mg/L FEU Sodium 140 (137-145) mmol/L Potassium 4.2 (3.5-5.1) mmol/L Chloride 106 (98-107) mmol/L Carbon Dioxide 21 L (22-30) mmol/L Anion Gap 13 mmol/L BUN 4 L (7-17) mg/dL Creatinine 0.68 (0.52-1.04) mg/dL Est GFR (MDRD) Af Amer >60 (>60 ml/min/1.73 sqM) Est GFR (MDRD) Non-Af >60 (>60 ml/min/1.73 sqM) Glucose 96 (74-99) mg/dL Plasma Lactic Acid Pasha (0.7-2.0) mmol/L Calcium 9.4 (8.4-10.2) mg/dL Magnesium 1.9 (1.6-2.3) mg/dL Total Bilirubin 0.1 L (0.2-1.3) mg/dL AST 90 H (14-36) U/L ALT 79 H (9-52) U/L Alkaline Phosphatase 144 H (38-126) U/L Troponin I (0.000-0.034) ng/mL NT-Pro-B Natriuret Pep pg/mL Total Protein 6.5 (6.3-8.2) g/dL Albumin 3.5 (3.5-5.0) g/dL Urine Color Urine Appearance (Clear) Urine pH (5.0-8.0) Ur Specific [place] (1.001-1.035) Urine Protein (Negative) Urine Glucose (UA) (Negative) Urine Ketones (Negative) Urine Blood (Negative) Urine Nitrite (Negative) Urine Bilirubin (Negative) Urine Urobilinogen (<2.0) mg/dL Ur Leukocyte Esterase (Negative) 06/11/17 06/11/17 06/11/17 Range/Units 11:29 11:29 11:29 WBC (3.8-10.6) k/uL RBC (3.80-5.40) m/uL Hgb (11.4-16.0) gm/dL Hct (34.0-46.0) % MCV (80.0-100.0) fL MCH (25.0-35.0) pg MCHC (31.0-37.0) g/dL RDW (11.5-15.5) % Plt Count (150-450) k/uL Neutrophils % % Lymphocytes % % Monocytes % % Eosinophils % % Basophils % % Neutrophils # (1.3-7.7) k/uL Lymphocytes # (1.0-4.8) k/uL Monocytes # (0-1.0) k/uL Eosinophils # (0-0.7) k/uL Basophils # (0-0.2) k/uL PT (9.0-12.0) sec INR (<1.2) APTT (22.0-30.0) sec D-Dimer (<0.60) mg/L FEU Sodium (137-145) mmol/L Potassium (3.5-5.1) mmol/L Chloride (98-107) mmol/L Carbon Dioxide (22-30) mmol/L Anion Gap mmol/L BUN (7-17) mg/dL Creatinine (0.52-1.04) mg/dL Est GFR (MDRD) Af Amer (>60 ml/min/1.73 sqM) Est GFR (MDRD) Non-Af (>60 ml/min/1.73 sqM) Glucose (74-99) mg/dL Plasma Lactic Acid Pasha 2.0 (0.7-2.0) mmol/L Calcium (8.4-10.2) mg/dL Magnesium (1.6-2.3) mg/dL Total Bilirubin (0.2-1.3) mg/dL AST (14-36) U/L ALT (9-52) U/L Alkaline Phosphatase (38-126) U/L Troponin I <0.012 (0.000-0.034) ng/mL NT-Pro-B Natriuret Pep 217 pg/mL Total Protein (6.3-8.2) g/dL Albumin (3.5-5.0) g/dL Urine Color Urine Appearance (Clear) Urine pH (5.0-8.0) Ur Specific [place] (1.001-1.035) Urine Protein (Negative) Urine Glucose (UA) (Negative) Urine Ketones (Negative) Urine Blood (Negative) Urine Nitrite (Negative) Urine Bilirubin (Negative) Urine Urobilinogen (<2.0) mg/dL Ur Leukocyte Esterase (Negative) 06/11/17 Range/Units 11:29 WBC (3.8-10.6) k/uL RBC (3.80-5.40) m/uL Hgb (11.4-16.0) gm/dL Hct (34.0-46.0) % MCV (80.0-100.0) fL MCH (25.0-35.0) pg MCHC (31.0-37.0) g/dL RDW (11.5-15.5) % Plt Count (150-450) k/uL Neutrophils % % Lymphocytes % % Monocytes % % Eosinophils % % Basophils % % Neutrophils # (1.3-7.7) k/uL Lymphocytes # (1.0-4.8) k/uL Monocytes # (0-1.0) k/uL Eosinophils # (0-0.7) k/uL Basophils # (0-0.2) k/uL PT (9.0-12.0) sec INR (<1.2) APTT (22.0-30.0) sec D-Dimer (<0.60) mg/L FEU Sodium (137-145) mmol/L Potassium (3.5-5.1) mmol/L Chloride (98-107) mmol/L Carbon Dioxide (22-30) mmol/L Anion Gap mmol/L BUN (7-17) mg/dL Creatinine (0.52-1.04) mg/dL Est GFR (MDRD) Af Amer (>60 ml/min/1.73 sqM) Est GFR (MDRD) Non-Af (>60 ml/min/1.73 sqM) Glucose (74-99) mg/dL Plasma Lactic Acid [place]asha (0.7-2.0) mmol/L Calcium (8.4-10.2) mg/dL Magnesium (1.6-2.3) mg/dL Total Bilirubin (0.2-1.3) mg/dL AST (14-36) U/L ALT (9-52) U/L Alkaline Phosphatase (38-126) U/L Troponin I (0.000-0.034) ng/mL NT-Pro-B Natriuret Pep pg/mL Total Protein (6.3-8.2) g/dL Albumin (3.5-5.0) g/dL Urine Color Light Yellow Urine Appearance Clear (Clear) Urine pH 7.0 (5.0-8.0) Ur Specific [place] 1.004 (1.001-1.035) Urine Protein Negative (Negative) Urine Glucose (UA) Negative (Negative) Urine Ketones Negative (Negative) Urine Blood Negative (Negative) Urine Nitrite Negative (Negative) Urine Bilirubin Negative (Negative) Urine Urobilinogen <2.0 (<2.0) mg/dL Ur Leukocyte Esterase Negative (Negative) Disposition <Gopal Best - Last Filed: 06/11/17 13:44> <Arnold Smith - Last Filed: 06/11/17 14:11> Clinical Impression: Bilateral pneumonia Disposition: ADMITTED IP TO THIS HOSP Condition: Fair Addendum entered and electronically signed by Gopal Best PA-C 06/11/17 13: 46: EKG performed at 11:41 normal sinus rhythm with a rate of 77. KS interval 132 QS duration 80 QT/QTC 358/405
[2017-06-11 11:56] LABS: Basophils % (A) 0 %; CHCM 32.9; Eosinophils # (A) 0.2 k/uL (0-0.7); Eosinophils % (A) 3 %; HCT 35.7 % (34.0-46.0); HDW 2.51; HGB 11.3 gm/dL (11.4-16.0); Luc # (Auto) 0.11; Luc % (Auto) 1; Lymphocytes # (A) 1.6 k/uL (1.0-4.8); Lymphocytes % (A) 18 %; MCH 28.1 pg (25.0-35.0); MCHC 31.7 g/dL (31.0-37.0); MCV 88.6 fL (80.0-100.0); Mean Platelet Volume 7.4; Monocytes # (A) 0.4 k/uL (0-1.0); Monocytes % (A) 5 %; Neutrophils # (A) 6.4 k/uL (1.3-7.7); Neutrophils % (A) 73 %; RBC 4.03 m/uL (3.80-5.40); RDW 15.2 % (11.5-15.5); WBC 8.8 k/uL (3.8-10.6); WBC (Perox) 8.65
[2017-06-11 12:12] LABS: Appearance,Urine Clear (Clear); Bilirubin,Urine Negative (Negative); Glucose,Urine (UA) Negative (Negative); Ketones,Urine Negative (Negative); Leukocyte Esterase,Urine Negative (Negative); Nitrite,Urine Negative (Negative); Partial Thromboplastin Time 22.6 sec (22.0-30.0); Protein,Urine Negative (Negative); Prothrombin Time 10.1 sec (9.0-12.0); Specific Gravity,Urine 1.004 (1.001-1.035); UA Billing (MACRO vs. MICRO) CHEM; Urobilinogen,Urine <2.0 mg/dL (<2.0)
[2017-06-11 12:16] LABS: ALT 79 U/L (9-52); AST 90 U/L (14-36); Alkaline Phosphatase 144 U/L (38-126); Anion Gap 13 mmol/L; Blood Urea Nitrogen 4 mg/dL (7-17); Calcium 9.4 mg/dL (8.4-10.2); Carbon Dioxide 21 mmol/L (22-30); Chloride 106 mmol/L (98-107); Glucose 96 mg/dL (74-99); Magnesium 1.9 mg/dL (1.6-2.3); Non-African American GFR(MDRD) >60 (>60 ml/min/1.73 sqM); Potassium 4.2 mmol/L (3.5-5.1); Sodium 140 mmol/L (137-145); Total Bilirubin 0.1 mg/dL (0.2-1.3); Total Protein 6.5 g/dL (6.3-8.2)
[2017-06-11] MEDS ORDERED: RX INFO: IV CONTRAST WAS GIVEN 1 EACH MISC MISCELLANE PRN (12:24)
--- NOTE | 2017-06-11 12:31 | XR ---
EXAMINATION TYPE: XR chest 2V DATE OF EXAM: 06/11/2017 COMPARISON: 06/06/2017 TECHNIQUE: PA and lateral views submitted. HISTORY: Difficulty breathing FINDINGS: Bilateral areas of consolidation small right effusion noted. No pneumothorax. Arthropathy of the AC j oints. Heart size stable. IMPRESSION: 1. Bilateral lower lobe infiltrate and small right effusion.
--- NOTE | 2017-06-11 13:42 | CT ---
EXAMINATION TYPE: CT chest angio for PE DATE OF EXAM: 06/11/2017 COMPARISON: NONE HISTORY: Post op kidney cyst. BONIFACIO for [address] DLP: 584 mGycm CONTRAST: CT chest with contrast and 3D reconstruction with MIP imaging is performed with IV Contrast, patient injected with 100 ml mL of Omnipaque 350. Contrast-enhanced CT of the chest was performed through the course of the pulmonary arteries with elmer g and mediastinal window settings submitted. 3D reconstruction with MIP imaging was also performed. PULMONARY ARTERIES: The pulmonary arteries and their major tributaries are patent. I do not see carol dence for sizable filling defect to suggest pulmonary embolic process. LUNGS: Chronic elevation right hemidiaphragm. Linear areas of parenchymal scar or atelectasis within the right lung base as well as the lingula and left lower lobe. No discrete nodule or mass. MEDIASTINUM: Thoracic aorta is of normal caliber . The heart is not enlarged. No evidence for media stinal mass. No mediastinal lymph nodes greater than 1cm. HILAR STRUCTURES: No evidence for mass. No hilar lymph nodes greater than 1 cm. UPPER ABDOMEN: Small sliding-type hiatal hernia. IMPRESSION: 1. No evidence for Pulmonary embolism at this time.
[2017-06-11] MEDS ORDERED: CEFEPIME 2 GM in SODIUM CHLORIDE 0.9% 50 ML IVPB STA (13:43)
[2017-06-11] MEDS ORDERED: PNEUMONIA PROTOCOL UTILIZED 1 EACH MISC PO PRN (13:45)
[2017-06-11] MEDS ORDERED: TOBRAMYCIN PER PHARMACY MISCELLANE SCH (13:45)
[2017-06-11] MEDS ORDERED: IPRATROPIUM-ALBUTEROL 3 ML NEB INHALATION PRN (13:45)
[2017-06-11] MEDS ORDERED: SODIUM CHLORIDE 0.9% IVPB ONE (14:00)
[2017-06-11] MEDS ORDERED: TOBRAMYCIN SULFATE IVPB ONE (14:00)
[2017-06-11] MEDS ORDERED: TEMAZEPAM 15 MG CAP PO PRN (15:25)
[2017-06-11] MEDS ORDERED: VANCOMYCIN IV PER PHARMACY 1 EACH MISC MISCELLANE PRN (15:33)
[2017-06-11] MEDS ORDERED: VANCOMYCIN 1,575 MG in SODIUM CHLORIDE 0.9% 250 ML IVPB ONE (15:33)
[2017-06-11] MEDS: traMADol 50 MG TAB PO PRN (16:25)
[2017-06-11] MEDS: FUROSEMIDE 10 MG/ML 4 ML VIAL IV SCH (16:25)
[2017-06-11] MEDS: VANCOMYCIN 1,750 MG in SODIUM CHLORIDE 0.9% 250 ML IVPB SCH (17:00)
--- NOTE | 2017-06-11 17:19 | P.CNPUL ---
History of Present Illness Consult date: 06/11/17 Requesting physician: Susan Gonsalez Reason for consult: dyspnea, COPD, other ( bi basilar atelectasis) Chief complaint: Shortness of breath History of present illness: This is a 52-year-old female with history of underlying COPD, obesity, remote smoking history, patient had a recent left renal cyst removed by Dr. Dye about a week ago. Patient was discharged last Friday, however over the last couple of days, the patient has been noticing productive cough with yellow phlegm, increased shortness of breath, and she was also complaining of increased swelling in the lower extremities. Patient became concerned, and she was mostly concerned about the possibility of thromboembolic disease. Patient was seen in the ER, CT angiogram of the chest showed mostly atelectasis at the bases, no evidence of pulmonary embolism noted. Patient was started on antibiotics, bronchodilators, and I was asked to see her on consultation. Patient denies any fever or chills, no hemoptysis, no chest pain. She feels that she has cough and some shortness of breath. Denies any headaches no blurred vision no dizziness no nausea no vomiting no abdominal pain no melena no hematemesis no dysuria and no frequency no urgency. Her CBC showed no evidence of leukocytosis. D-dimer was a bit elevated but CT angiogram was negative for thromboembolic disease. Her complete metabolic profile was normal. Liver enzymes were noted to be a bit elevated. Chest x-ray showed by basilar atelectasis. No clear-cut evidence of pneumonia. Review of Systems 14 point review of systems were obtained, please refer to pertinent positives in the HPI, otherwise all other remaining systems are negative. Past Medical History Past Medical History: Asthma, COPD, GERD/Reflux, Hypertension, Skin Disorder Additional Past Medical History / Comment(s): Pt recently admitted to [facility] for L kidney decortication of a cyst. She had some atelectasis post op. Other HX: Bilateral adrenal masses being monitored, DVT L leg, urinary incontinence-wears depends, cardiac murmur as a teen, [place] L ear. History of Any Multi-Drug Resistant Organisms: None Reported Past Surgical History: Appendectomy, Bladder Surgery, Cholecystectomy, Hernia Repair, Hysterectomy, Tonsillectomy, Tubal Ligation Additional Past Surgical History / Comment(s): 9/20/17 cyst on left kidney removed, L kidney cyst aspiration, bilateral inguinal hernia repairs, bladder sling, bile duct surgery, Past Anesthesia/Blood Transfusion Reactions: No Reported Reaction Smoking Status: Former smoker - Past Family History Mother Family Medical History: Cancer, Congestive Heart Failure (CHF), Sleep Apnea/CPAP /BIPAP Additional Family Medical History / Comment(s): Mother had breast cancer. She from CHF at the age of 55 yrs. Father Family Medical History: Diabetes Mellitus Additional Family Medical History / Comment(s): Father from diabetic complications at the age of 60 yrs. He had brittle bone disease. Brother(s) Family Medical History: Deep Vein Thrombosis (DVT) Medications and Allergies Home Medications Medication Instructions Recorded Confirmed Type Budesonide-Formot 160-4.5 Mcg 2 puff INHALATION RT-BID 08/05/14 06/11/17 History [Symbicort 160-4.5 Mcg Inhaler] Loratadine [Claritin] 10 mg PO HS 08/05/14 06/11/17 History Albuterol Nebulized [Ventolin 2.5 mg INHALATION RT-TID PRN 11/06/16 06/11/17 History Nebulized] Atorvastatin [Lipitor] 20 mg PO DAILY 11/06/16 06/11/17 History Furosemide [Lasix] 20 mg PO DAILY PRN 11/06/16 06/11/17 History Ipratropium Nebulized [Atrovent 0.5 mg INHALATION RT-TID 11/06/16 06/11/17 History Nebulized] Isosorbide Mononitrate ER [Imdur] 30 mg PO DAILY 11/06/16 06/11/17 History Metoprolol Tartrate [Lopressor] 25 mg PO BID 05/30/17 06/11/17 History Acetaminophen Tab [Tylenol Tab] 1,000 mg PO Q6HR PRN 06/11/17 06/11/17 History Albuterol Inhaler [Ventolin Hfa 2 puff INHALATION RT-QID PRN 06/11/17 06/11/17 History Inhaler] Docusate [Colace] 100 mg PO DAILY 06/11/17 06/11/17 History traMADol HCL [Ultram] 50 mg PO Q6HR PRN 06/11/17 06/11/17 History Allergies Allergy/AdvReac Type Severity Reaction Status Date / Time alprazolam [From Xanax] Allergy Anaphylaxis Verified 06/11/17 11:29 aspirin Allergy Rash/Hives Verified 06/11/17 11:29 azithromycin Allergy Rapid Verified 06/11/17 11:29 Heart Rate bupropion HCl [From Zyban] Allergy Rash/Hives Verified 06/11/17 11:29 codeine Allergy Anaphylaxis Verified 06/11/17 11:29 hydrocodone [From [place]] Allergy Rash/Hives Verified 06/11/17 11:29 Latex, Natural Rubber Allergy Rash/Hives, Verified 06/11/17 11:29 throat swelling levofloxacin [From Levaquin] Allergy Anaphylaxis Verified 06/11/17 11:29 Penicillins Allergy Rash/Hives Verified 06/11/17 11:29 Physical Exam Vitals: Vital Signs Temp Pulse Pulse Resp BP BP Pulse Ox 06/11/17 15:36 97.5 F L 96 18 143/77 97 06/11/17 15:17 98 06/11/17 13:53 97.9 F 97 17 160/97 95 06/11/17 12:01 90 06/11/17 11:50 92 20 06/11/17 10:56 98.4 F 92 20 143/88 97 Intake and Output 06/11/17 06/11/17 06/11/17 06:59 14:59 22:59 Other: Weight 104.326 kg 107.6 kg Patient Weight 06/12/17 06:59 Weight 107.6 kg General appearance: Revealed a 52-year-old female in no form of respiratory distress, alert. Head exam: atraumatic, normocephalic, Eye exam: normal appearance, PERRL, EOMI. Absent: scleral icterus ENT exam: normal exam, normal oropharynx, mucous membranes moist Neck exam: No neck masses, no JVD, no stridor, no cervical lymphadenopathy, no thyromegaly. Respiratory exam: Diminished breath sounds at the bases, no crackles or rhonchi or wheezes. Cardiovascular Exam: Normal S1 and S2, no S3 gallop. GI/Abdominal exam: Obese, soft, nontender, no megaly, no rebound. (Large incision with gurjit in place minimal erythema on the borders). Extremities exam: Present: pedal edema (Bilateral greater on the left compared to the right) Psychiatric exam: Normal mental status examination, Skin exam: Present: warm, dry, intact, normal color. Absent: rash Results - Laboratory Findings CBC and BMP: 06/11/17 11:29 06/11/17 11:29 PT/INR, D-dimer PT 10.1 sec (9.0-12.0) 06/11/17 11: INR 1.0 (<1.2) 06/11/17 11:29 D-Dimer 1.18 mg/L FEU (<0.60) H 06/11/17 11:29 Abnormal lab findings: Abnormal Labs 06/11/17 06/11/17 06/11/17 11:29 11:29 11:29 Hgb 11.3 L D-Dimer 1.18 H Carbon Dioxide 21 L BUN 4 L Total Bilirubin 0.1 L AST 90 H ALT 79 H Alkaline Phosphatase 144 H - Diagnostic Findings CT scan - chest: image reviewed (As noted in HPI.) Assessment and Plan Plan: Impression: 1 Acute shortness of breath secondary to acute purulent tracheobronchitis, COPD exacerbation, and bibasilar atelectasis. No clear-cut evidence of pneumonia based on chest x-ray and CT of the chest. Patient does not have leukocytosis and she does not have fever either. 2 history of multiple comorbidities including COPD, remote smoking history, GERD , hypertension, and recent history of left kidney surgery/cyst removed from the left kidney. Recommendation: Agree with the present treatment plan, continue DuoNeb, patient could be switched to oral antibiotics in the morning possibly in the form of Levaquin, consider discharging the patient home in the next 24 hours and follow up on outpatient basis. Time with Patient: Greater than 30
--- NOTE | 2017-06-11 18:45 | HP ---
HISTORY AND PHYSICAL DATE OF SERVICE: 06/11/2017. CHIEF COMPLAINT: This 52-year-old woman who had a past medical history of multiple medical problems is being followed by Dr. Matos in the outpatient setting, had a painful left renal cyst. The patient underwent left renal exploration with a decortication of the left renal cyst by Dr. Castellano last week and the patient went home. The patient has improved , but after going home, the patient developed progressive cough and sputum. The final biopsy report is pending at this time. A low-grade renal carcinoma with a prominent cystic degeneration is a concern. The patient was having some productive cough and also complains of abdominal pain with multiple symptomatology. Patient taken to [facility] and admitted for further evaluation and treatment. Bilateral pneumonia was suspected in the ER. There is no history of headache, loss of consciousness, seizures. No history of any hematochezia, melena, hemoptysis at this time. PAST MEDICAL HISTORY: History of recent renal cortical surgery, history of asthma, COPD, GERD, hypertension, history of appendectomy and bladder surgery. MEDICATIONS PRIOR TO ADMISSION: Include home medications are: 1. Tylenol 1000 mg every 6 hours p.r.n. 2. Ultram 50 mg p.o. every 6 hours p.r.n. 3. Colace 100 mg p.o. daily. 4. Ventolin HFA 2 puffs q.i.d. p.r.n. 5. Lopressor 25 mg p.o. b.i.d. 6. Claritin 10 mg q.h.s. 7. Imdur 30 mg p.o. daily. 8. Atrovent 0.5 mg t.i.d. 9. Lasix 20 mg daily p.r.n. 10.Symbicort 160/4.5 2 puffs b.i.d. 11.Lipitor 20 mg daily. 12.Aldactone 12.5 t.i.d. p.r.n. ALLERGIES: XANAX, ASPIRIN, ZITHROMAX, ZYBAN, CODEINE, NORCO, LATEX, LEVAQUIN, PENICILLIN. FAMILY HISTORY: History of DVT in the family. SOCIAL HISTORY: Previous history of smoking. No history of current smoking or alcohol intake. REVIEW OF SYSTEMS: ENT: No diminished hearing. No diminished vision. CARDIOVASCULAR: No angina or palpitations. RESPIRATORY: As mentioned earlier. GI: As mentioned earlier. : As mentioned earlier. NERVOUS: No numbness, weakness. ALLERGY/IMMUNOLOGY: No asthma, hay fever. MUSCULOSKELETAL: As mentioned earlier. HEMATOLOGY/ONCOLOGY: No history of anemia. ENDOCRINE: No history of diabetes, hypothyroidism. CONSTITUTIONAL: As mentioned earlier. DERMATOLOGY: Negative. RHEUMATOLOGY: Negative. Nontender. PSYCHIATRY: As mentioned earlier. PHYSICAL EXAM: Patient is in alert oriented x3. Pulse 96, blood pressure 143/77, respirations 18, temperature 97.4, pulse ox 97% on room air. HEENT: Conjunctivae normal. Oral mucosa moist. NECK: No jugular venous distention. No carotid bruits. No lymph node enlargement. CARDIOVASCULAR SYSTEM: S1, S2 muffled. No S3. No S4. RESPIRATORY: Breath sounds diminished in the bases. A few scattered rhonchi and crackles. Expiratory wheezing also present. ABDOMEN: Soft, obese, status post left-sided recent surgery for renal cyst; otherwise, no guarding. No rigidity. No mass palpable. bowel sounds normal. LEGS: Bilateral leg edema. Pulses are normal. NERVOUS SYSTEM: Higher functions as mentioned earlier. Moves all 4 limbs. No focal motor or sensory deficits. LYMPHATICS: No lymph nodes palpable in neck, axillae or groins. SKIN: No ulcer, rash or bleeding. LABS: WBC 8.8 hemoglobin is 11.3. D-dimer is 1.18. AST 90, ALT 70 and alk phos 144. Chest x-ray which was personally reviewed by me showed possible bilateral lower lobe infiltrates and small effusions. ASSESSMENT: 1. Bibasilar pneumonia possibly and atelectasis. 2. Recent renal cyst surgery on the left with the left renal exploration with decortication of the left renal cyst. 3. Bilateral leg edema. 4. History of asthma, chronic obstructive pulmonary disease. 5. Gastroesophageal reflux disease. 6. Hypertension. 7. History of bilateral adrenal mass. 8. History of deep venous thrombosis of the left leg. 9. History of appendectomy. 10.History of cholecystectomy. RECOMMENDATIONS AND DISCUSSION: In this 52-year-old woman who presented with multiple complex medical issues, will monitor the patient closely. Continue with the current medications and symptomatic treatment. I would recommend continuing with broad-spectrum IV antibiotics, bronchodilators, pulmonary consultation, urology consultation. Otherwise, incentive spirometry, DVT prophylaxis. Will obtain the cultures, resume the home medications. Overall prognosis guarded because of multiple complex medical issues. Discussed with the patient, who understands. Further recommendations to follow. A copy of the dictation will be forwarded to Dr. Matos, who is the primary physician. MARY / STEFANON: [id number] / MTDD
[2017-06-11] MEDS ORDERED: ACETAMINOPHEN TAB 500 MG TAB PO PRN (20:39)
[2017-06-11] MEDS: IPRATROPIUM 0.5 MG/2.5 ML NEBU INHALATION SCH (20:47)
[2017-06-11] MEDS: SYMBICORT 160-4.5 MCG INHALER INHALATION SCH (20:47)
[2017-06-11] MEDS: LEVALBUTEROL NEB (CONC) 1.25 MG/0.5 ML AMP INHALATION SCH (20:48)
[2017-06-11] MEDS: METOPROLOL TARTRATE 25 MG TAB PO SCH (21:51)
[2017-06-11] MEDS: LORATADINE 10 MG TAB PO SCH (21:51)
[2017-06-11] MEDS: HEPARIN SODIUM,PORCINE 5,000 UNIT/ML 1 ML VIAL SQ SCH (21:51)
[2017-06-12] MEDS: CEFEPIME 2 GM in SODIUM CHLORIDE 0.9% 50 ML IVPB SCH ×4 (00:10→23:36)
[2017-06-12] MEDS: VANCOMYCIN 1,750 MG in SODIUM CHLORIDE 0.9% 250 ML IVPB SCH ×2 (04:15→16:29)
[2017-06-12] MEDS ORDERED: TOBRAMYCIN SULFATE IVPB SCH (05:00)
[2017-06-12] MEDS ORDERED: SODIUM CHLORIDE 0.9% IVPB SCH (05:00)
[2017-06-12] MEDS: IPRATROPIUM 0.5 MG/2.5 ML NEBU INHALATION SCH ×3 (07:11→19:34)
[2017-06-12] MEDS: LEVALBUTEROL NEB (CONC) 1.25 MG/0.5 ML AMP INHALATION SCH ×4 (07:11→19:33)
[2017-06-12] MEDS: SYMBICORT 160-4.5 MCG INHALER INHALATION SCH ×2 (07:11→19:34)
[2017-06-12 08:01] LABS: Basophils % (A) 0 %; CH 28.3; CHCM 31.3; Eosinophils # (A) 0.2 k/uL (0-0.7); Eosinophils % (A) 3 %; HCT 37.8 % (34.0-46.0); HDW 2.48; HGB 11.9 gm/dL (11.4-16.0); Hypochromasia Slight; Luc # (Auto) 0.12; Luc % (Auto) 2; Lymphocytes # (A) 1.4 k/uL (1.0-4.8); Lymphocytes % (A) 21 %; MCH 28.6 pg (25.0-35.0); MCHC 31.5 g/dL (31.0-37.0); MCV 90.9 fL (80.0-100.0); Mean Platelet Volume 7.6; Monocytes # (A) 0.3 k/uL (0-1.0); Monocytes % (A) 4 %; Neutrophils # (A) 4.7 k/uL (1.3-7.7); Neutrophils % (A) 69 %; RBC 4.15 m/uL (3.80-5.40); RDW 14.5 % (11.5-15.5); WBC 6.8 k/uL (3.8-10.6); WBC (Perox) 7.25
[2017-06-12] MEDS: DOCUSATE 100 MG CAP PO SCH (08:26)
[2017-06-12] MEDS: ATORVASTATIN 20 MG TAB PO SCH (08:26)
[2017-06-12] MEDS: FUROSEMIDE 10 MG/ML 4 ML VIAL IV SCH (08:26)
[2017-06-12] MEDS: METOPROLOL TARTRATE 25 MG TAB PO SCH ×2 (08:27→22:17)
[2017-06-12] MEDS: HEPARIN SODIUM,PORCINE 5,000 UNIT/ML 1 ML VIAL SQ SCH ×2 (08:27→22:18)
[2017-06-12] MEDS: ISOSORBIDE MONONITRATE ER 30 MG TAB.ER.24H PO SCH (08:27)
[2017-06-12 08:30] LABS: ALT 108 U/L (9-52); AST 105 U/L (14-36); Alkaline Phosphatase 159 U/L (38-126); Anion Gap 12 mmol/L; Blood Urea Nitrogen 5 mg/dL (7-17); Carbon Dioxide 23 mmol/L (22-30); Chloride 105 mmol/L (98-107); Glucose 96 mg/dL (74-99); Non-African American GFR(MDRD) >60 (>60 ml/min/1.73 sqM); Potassium 3.9 mmol/L (3.5-5.1); Sodium 140 mmol/L (137-145); Total Bilirubin 0.2 mg/dL (0.2-1.3); Total Protein 6.5 g/dL (6.3-8.2)
[2017-06-12] MEDS ORDERED: PANTOPRAZOLE 40 MG/10 ML VIAL IVP SCH (09:00)
--- NOTE | 2017-06-12 10:08 | XR ---
EXAMINATION TYPE: XR chest 2V DATE OF EXAM: 06/12/2017 COMPARISON: 06/11/2017 TECHNIQUE: PA and lateral views submitted. HISTORY: Shortness of breath FINDINGS: Bilateral lower lobe consolidation greater on the right stable. No interstitial edema or pneumothorax . Heart size stable. IMPRESSION: 1. Stable bilateral infiltrate greater on the right.
--- NOTE | 2017-06-12 10:16 | ECHOF ---
Referral Reason:chf MEASUREMENTS -------- HEIGHT: 157.5 cm WEIGHT: 104.3 kg BP: 143/77 RVIDd: 3.0 cm (< 3.3) IVSd: 1.4 cm (0.6 - 1.1) LVIDd: 4.7 cm (3.9 - 5.3) LVPWd: 1.2 cm (0.6 - 1.1) IVSs: 1.8 cm LVIDs: 3.4 cm LVPWs: 1.6 cm LAESV Index (A-L): 14.85 ml/m Ao Diam: 3.2 cm (2.0 - 3.7) AV Cusp: 1.9 cm (1.5 - 2.6) LA Diam: 3.6 cm (2.7 - 3.8) MV EXCURSION: 17.007 mm (> 18.000) MV EF SLOPE: 135 mm/s (70 - 150) EPSS: 0.9 cm MV E Bernardino: 0.93 m/s MV DecT: 325 ms MV A Bernardino: 1.12 m/s MV E/A Ratio: 0.83 RAP: 5.00 mmHg RVSP: 12.99 mmHg FINDINGS -------- Sinus rhythm. This was a technically adequate study. Subcostals not obtained due to recent surgery (06-04-17) The left ventricular size is normal. There is mild concentric left ventricular hypertrophy. Overall left ventricular systolic function is low-normal with, an EF between 50 - 55 %. The right ventricle is normal in size and function. Normal LA size by volume 22+/-6 ml/m2. The right atrium is normal in size. The aortic valve is trileaflet, and appears structurally normal. No aortic stenosis or regurgitation. Mild mitral annular calcification present. There is trace mitral regurgitation. No regurgitation noted Right ventricular systolic pressure is normal at < 35 mmHg. There is no evidence of pulmonary hypertension. The pulmonic valve was not well visualized. The aortic root size is normal. IVC Not well visulized. The pericardium is normal. There is no pericardial effusion. CONCLUSIONS -------- 1. Sinus rhythm. 2. There is trace mitral regurgitation. 3. No regurgitation noted 4. Right ventricular systolic pressure is normal at < 35 mmHg. 5. There is no evidence of pulmonary hypertension. 6. The pulmonic valve was not well visualized. 7. The aortic root size is normal. 8. IVC Not well visulized. 9. There is no pericardial effusion. 10. This was a technically adequate study. 11. Subcostals not obtained due to recent surgery (06-04-17) 12. The left ventricular size is normal. 13. There is mild concentric left ventricular hypertrophy. 14. Overall left ventricular systolic function is low-normal with, an EF between 50 - 55 %. 15. Normal LA size by volume 22+/-6 ml/m2. 16. The aortic valve is trileaflet, and appears structurally normal. No aortic stenosis or regurgitation. 17. Mild mitral annular calcification present. ELECTROCARDIOGRAPH REPAIRER: Larry David RDCS
[2017-06-12] MEDS: MULTIVITAMINS, THERA 1 EACH TAB PO SCH (12:21)
[2017-06-12] MEDS: traMADol 50 MG TAB PO PRN ×2 (12:24→22:28)
--- NOTE | 2017-06-12 13:19 | P.GSCN ---
History of Present Illness Consult date: 06/12/17 Reason for Consult: Recent surgery History of present illness: Patient is a 52-year-old female who approximately 1 week ago underwent a left renal exploration with decortication of a large renal cyst. The patient had a 13 cm cyst that was drained radiographically with relief of pain only to have the pain returned as a cyst refilled. We discussed the treatment options and she wished to have a cyst decortication. I recommend referral to a laparoscopic center which she declined. She she underwent an open surgical repair without difficulty. Postoperatively the patient complained of pain. She stated she had problems breathing. I did a chest x-ray that showed bilateral atelectasis. This seemed to improve with pulmonary toilet. She had no significant white count or fever. She is discharged home only to return to the hospital complaining of pain and shortness of breath. She is admitted as a bilateral pneumonia however the CAT scan and chest x-ray more consistent with atelectasis. There is out no obvious pneumonia. She has not had fever nor has she had an elevated white count. She is feeling better. She is resting in bed comfortably however she does state that she her pain as a level X Review of Systems - Constitutional Reports as per HPI, Reports chronic pain - Respiratory Reports as per HPI - Genitourinary Genitourinary: Reports as per HPI Past Medical History Past Medical History: Asthma, COPD, GERD/Reflux, Hypertension, Skin Disorder Additional Past Medical History / Comment(s): Pt recently admitted to [facility] for L kidney decortication of a cyst. She had some atelectasis post op. Other HX: Bilateral adrenal masses being monitored, DVT L leg, urinary incontinence-wears depends, cardiac murmur as a teen, port heiden L ear. History of Any Multi-Drug Resistant Organisms: None Reported Past Surgical History: Appendectomy, Bladder Surgery, Cholecystectomy, Hernia Repair, Hysterectomy, Tonsillectomy, Tubal Ligation Additional Past Surgical History / Comment(s): 06/04/17 cyst on left kidney removed, L kidney cyst aspiration, bilateral inguinal hernia repairs, bladder sling, bile duct surgery, Past Anesthesia/Blood Transfusion Reactions: No Reported Reaction Smoking Status: Former smoker - Past Family History Mother Family Medical History: Cancer, Congestive Heart Failure (CHF), Sleep Apnea/CPAP /BIPAP Additional Family Medical History / Comment(s): Mother had breast cancer. She from CHF at the age of 55 yrs. Father Family Medical History: Diabetes Mellitus Additional Family Medical History / Comment(s): Father from diabetic complications at the age of 60 yrs. He had brittle bone disease. Brother(s) Family Medical History: Deep Vein Thrombosis (DVT) Medications and Allergies Home Medications Medication Instructions Recorded Confirmed Type Budesonide-Formot 160-4.5 Mcg 2 puff INHALATION RT-BID 08/05/14 06/11/17 History [Symbicort 160-4.5 Mcg Inhaler] Loratadine [Claritin] 10 mg PO HS 08/05/14 06/11/17 History Albuterol Nebulized [Ventolin 2.5 mg INHALATION RT-TID PRN 11/06/16 06/11/17 History Nebulized] Atorvastatin [Lipitor] 20 mg PO DAILY 11/06/16 06/11/17 History Furosemide [Lasix] 20 mg PO DAILY PRN 11/06/16 06/11/17 History Ipratropium Nebulized [Atrovent 0.5 mg INHALATION RT-TID 11/06/16 06/11/17 History Nebulized] Isosorbide Mononitrate ER [Imdur] 30 mg PO DAILY 11/06/16 06/11/17 History Metoprolol Tartrate [Lopressor] 25 mg PO BID 05/30/17 06/11/17 History Acetaminophen Tab [Tylenol Tab] 1,000 mg PO Q6HR PRN 06/11/17 06/11/17 History Albuterol Inhaler [Ventolin Hfa 2 puff INHALATION RT-QID PRN 06/11/17 06/11/17 History Inhaler] Docusate [Colace] 100 mg PO DAILY 06/11/17 06/11/17 History traMADol HCL [Ultram] 50 mg PO Q6HR PRN 06/11/17 06/11/17 History Allergies Allergy/AdvReac Type Severity Reaction Status Date / Time alprazolam [From Xanax] Allergy Anaphylaxis Verified 06/11/17 11:29 aspirin Allergy Rash/Hives Verified 06/11/17 11:29 azithromycin Allergy Rapid Verified 06/11/17 11:29 Heart Rate bupropion HCl [From Zyban] Allergy Rash/Hives Verified 06/11/17 11:29 codeine Allergy Anaphylaxis Verified 06/11/17 11:29 hydrocodone [From [place]] Allergy Rash/Hives Verified 06/11/17 11:29 Latex, Natural Rubber Allergy Rash/Hives, Verified 06/11/17 11:29 throat swelling levofloxacin [From Levaquin] Allergy Anaphylaxis Verified 06/11/17 11:29 Penicillins Allergy Rash/Hives Verified 06/11/17 11:29 Surgical - Exam Vital Signs Temp Pulse Resp BP Pulse Ox 98.4 F 92 20 143/88 97 06/11/17 10:56 06/11/17 10:56 06/11/17 10:56 06/11/17 10:56 06/11/17 10:56 - General well developed, well nourished, no distress - Eyes PERRL - ENT no hearing loss - Neck trachea midline - Respiratory normal expansion, normal respiratory effort - Cardiovascular Rhythm: regular - Abdomen Abdomen: soft, non tender, wound (Her wound is healing without evidence of erythema. The gurjit will be removed.) Results - Labs 06/12/17 07:51 06/12/17 07:51 Abnormal Lab Results - Last 24 Hours (Table) 06/12/17 Range/Units 07:51 BUN 5 L (7-17) mg/dL AST 105 H (14-36) U/L ALT 108 H (9-52) U/L Alkaline Phosphatase 159 H (38-126) U/L Diabetes panel 06/12/17 Range/Units 07:51 Sodium 140 (137-145) mmol/L Potassium 3.9 (3.5-5.1) mmol/L Chloride 105 (98-107) mmol/L Carbon Dioxide 23 (22-30) mmol/L BUN 5 L (7-17) mg/dL Creatinine 0.79 (0.52-1.04) mg/dL Glucose 96 (74-99) mg/dL Calcium 9.0 (8.4-10.2) mg/dL AST 105 H (14-36) U/L ALT 108 H (9-52) U/L Alkaline Phosphatase 159 H (38-126) U/L Total Protein 6.5 (6.3-8.2) g/dL Albumin 3.5 (3.5-5.0) g/dL Calcium panel 06/12/17 Range/Units 07:51 Calcium 9.0 (8.4-10.2) mg/dL Albumin 3.5 (3.5-5.0) g/dL Pituitary panel 06/12/17 Range/Units 07:51 Sodium 140 (137-145) mmol/L Potassium 3.9 (3.5-5.1) mmol/L Chloride 105 (98-107) mmol/L Carbon Dioxide 23 (22-30) mmol/L BUN 5 L (7-17) mg/dL Creatinine 0.79 (0.52-1.04) mg/dL Glucose 96 (74-99) mg/dL Calcium 9.0 (8.4-10.2) mg/dL Adrenal panel 06/12/17 Range/Units 07:51 Sodium 140 (137-145) mmol/L Potassium 3.9 (3.5-5.1) mmol/L Chloride 105 (98-107) mmol/L Carbon Dioxide 23 (22-30) mmol/L BUN 5 L (7-17) mg/dL Creatinine 0.79 (0.52-1.04) mg/dL Glucose 96 (74-99) mg/dL Calcium 9.0 (8.4-10.2) mg/dL Total Bilirubin 0.2 (0.2-1.3) mg/dL AST 105 H (14-36) U/L ALT 108 H (9-52) U/L Alkaline Phosphatase 159 H (38-126) U/L Total Protein 6.5 (6.3-8.2) g/dL Albumin 3.5 (3.5-5.0) g/dL Assessment and Plan Plan: Impression: Status post left renal exploration with cyst decortication. Abdominal pain acute and chronic. Shortness of breath acute and chronic without evidence pneumonia. Recommendations: This patient at this point time does not appear to have any urologic problems. There is no pneumonia fortunately. She needs to continue with pulmonary toilet. Her gurjit have been removed. She does not need to be seen in the office tomorrow as previously scheduled. From urologic standpoint she can be discharged home. Suspect this patient is a component of chronic pain and anxiety that could be contributing to this recent exacerbation. She cannot tell me whether her preoperative pain has disappeared as she is still having incisional pain.
--- NOTE | 2017-06-12 16:09 | P.PN ---
Subjective Principal diagnosis: dyspnea, COPD, bibasilar atelectasis This is a 52-year-old female with history of underlying COPD, obesity, remote smoking history, patient had a recent left renal cyst removed by Dr. Dye about a week ago. Patient was discharged last Friday, however over the last couple of days, the patient has been noticing productive cough with yellow phlegm, increased shortness of breath, and she was also complaining of increased swelling in the lower extremities. Patient became concerned, and she was mostly concerned about the possibility of thromboembolic disease. Patient was seen in the ER, CT angiogram of the chest showed mostly atelectasis at the bases, no evidence of pulmonary embolism noted. Patient was started on antibiotics, bronchodilators, and I was asked to see her on consultation. Patient denies any fever or chills, no hemoptysis, no chest pain. She feels that she has cough and some shortness of breath. Denies any headaches no blurred vision no dizziness no nausea no vomiting no abdominal pain no melena no hematemesis no dysuria and no frequency no urgency. Her CBC showed no evidence of leukocytosis. D-dimer was a bit elevated but CT angiogram was negative for thromboembolic disease. Her complete metabolic profile was normal. Liver enzymes were noted to be a bit elevated. Chest x-ray showed by basilar atelectasis. No clear-cut evidence of pneumonia. On 06/12/2017 patient is seen in follow-up. She is sitting in the chair at the bedside in no acute distress. She is compliant with her incentive spirometer, she is able to achieve 1250. She does complain of incisional discomfort with deep inspiration. Patient has status left renal cyst removal by Dr. Castellano on . Oblique incision over the leftside of the abdomen is clean dry and intact, well approximated, some erythema along the borders, with intact gurjit.lungs sounds are diminished with a few scattered rales over left lower posterior base. No significant sputum production. Patient denies chest congestion, wheezes or shortness of breath. Repeat chest x-ray from 06/12/2017 showed stable bilateral infiltrates greater on the right.No febrile episodes, hemodynamically stable, no signs of respiratory distress. Objective - Vital Signs Vital signs: Vital Signs Temp 97.8 F 06/12/17 07:00 Pulse 82 06/12/17 07:45 Resp 18 06/12/17 08:00 BP 132/87 06/12/17 07:00 Pulse Ox 99 06/12/17 07:00 Intake & Output 06/11/17 06/12/17 06/12/17 18:59 06:59 18:59 Intake Total 800 Balance 800 Weight 107.6 kg 102 kg Intake: IV 300 Cefepime 2 gm In Sodium 50 Chloride 0.9% 50 ml @ 100 mls/hr IVPB Q8HR [facility]UL[facility] Rx# :[id number] Vancomycin 1,750 mg In 250 Sodium Chloride 0.9% 250 ml @ 125 mls/hr IVPB Q12H GIULIA Rx#:[id number] Oral 500 Other: Voiding Method Toilet Toilet Diaper Diaper # Voids 2 # Bowel Movements 1 - Exam General appearance: Revealed a 52-year-old female in no form of respiratory distress, alert. Head exam: atraumatic, normocephalic, Eye exam: normal appearance, PERRL, EOMI. Absent: scleral icterus ENT exam: normal exam, normal oropharynx, mucous membranes moist Neck exam: No neck masses, no JVD, no stridor, no cervical lymphadenopathy, no thyromegaly. Respiratory exam: Diminished breath sounds at the bases, no crackles or rhonchi or wheezes. Cardiovascular Exam: Normal S1 and S2, no S3 gallop. GI/Abdominal exam: Obese, soft, nontender, no megaly, no rebound. Large incision with gurjit in place minimal erythema on the borders). Extremities exam: Present: pedal edema (Bilateral greater on the left compared to the right. Psychiatric exam: Normal mental status examination, Skin exam: Present: warm, dry, intact, normal color. Absent: rash - Labs CBC & Chem 7: 06/12/17 07:51 06/12/17 07:51 Labs: Abnormal Lab Results - Last 24 Hours (Table) 06/12/17 Range/Units 07:51 BUN 5 L (7-17) mg/dL AST 105 H (14-36) U/L ALT 108 H (9-52) U/L Alkaline Phosphatase 159 H (38-126) U/L Assessment and Plan Plan: Assessment and Plan Plan: Impression: 1 Acute shortness of breath secondary to acute purulent tracheobronchitis, COPD exacerbation, and bibasilar atelectasis. No clear-cut evidence of pneumonia based on chest x-ray and CT of the chest. Patient does not have leukocytosis and she does not have fever either. 2 history of multiple comorbidities including COPD, remote smoking history, GERD , hypertension, and recent history of left kidney surgery/cyst removed from the left kidney. Recommendation: Agree with the present treatment plan, continue DuoNeb, patient could be switched to oral antibiotics in the morning possibly in the form of Levaquin, consider discharging the patient home in the next 24 hours and follow up on outpatient basis. I performed a history & physical examination of the patient and discussed their management with my nurse practitioner, Katherine Thomas. I reviewed the nurse practitioner's note and agree with the documented findings and plan of care.
--- NOTE | 2017-06-12 16:25 | PN ---
PROGRESS NOTE DATE OF SERVICE: 06/12/2017 This 52-year-old woman with a past history of multiple medical problems had recently had renal surgery with cyst decortication, was admitted with aspiration pneumonia. The patient also had COPD and bibasilar atelectasis. The patient is being closely monitored at this time. The repeat chest x-ray done today showed stable bilateral lesions. PAST MEDICAL: Reviewed. REVIEW OF SYSTEMS: CARDIOVASCULAR: As mentioned earlier. RESPIRATORY: As mentioned earlier. GI: As mentioned earlier. : No dysuria. NERVOUS: No numbness or weakness. CURRENT MEDICATIONS: Reviewed, include: 1. Tylenol 1000 mg every 6 hours. 2. DuoNeb q.i.d. and p.r.n. 3. Lipitor 20 mg daily. 4. Symbicort 160/4.5, 2 puffs b.i.d. 6. Lasix 40 IV daily. 7. Heparin 5000 subcu daily. 8. Atrovent 0.5 t.i.d. 9. Imdur 30 mg daily. 10.Xopenex 1.25 t.i.d. 11.Claritin 10 mg q.h.s. 12.Lopressor 25 mg p.o. b.i.d. 13.Protonix 40 mg p.o. daily. PHYSICAL EXAM: Patient is alert, oriented x3. The pulse is 82, blood pressure 133/87, respirations 18, temperature 97.3, pulse ox 99% on room air. HEENT: Conjunctivae normal. NECK: No jugular venous distention. CARDIOVASCULAR: S1, S2 muffled. RESPIRATORY: Breath sounds diminished in the bases. A few scattered rhonchi and crackles. ABDOMEN: Soft, nontender. No mass. LEGS: No edema. NERVOUS: No focal deficits. LABS: CBC within normal limits. Otherwise, AST is 105 and ALT is 108. Alk phos is 159. ASSESSMENT: 1. Chronic obstructive pulmonary disease acute exacerbation with possible bibasilar atelectasis and pneumonia unlikely per Pulmonary. 2. History of recent renal cyst surgery on the left side with left renal exploration with decortication of a left renal cyst. 3. Bilateral leg edema. 4. History of asthma, chronic obstructive pulmonary disease. 5. Gastroesophageal reflux disease. 6. Hypertension. 7. History of bilateral adrenal mass. 8. History of deep venous thrombosis of the left leg. 9. History of appendectomy. 10.History of cholecystectomy. RECOMMENDATION AND DISCUSSION: Recommend to continue current management. Continue with symptomatic treatment. Continue with bronchodilators. Continue with the rest of the medications, including empiric antibiotics as well as diuretics. Closely monitor. Cultures are negative. Increase ambulation, incentive spirometry. Further recommendations to follow. Prognosis guarded. MARY / AWILDA: [id number] / MTDD
[2017-06-12] MEDS: LORATADINE 10 MG TAB PO SCH (22:18)
[2017-06-13] MEDS: VANCOMYCIN 1,750 MG in SODIUM CHLORIDE 0.9% 250 ML IVPB SCH ×2 (05:03→18:36)
[2017-06-13] MEDS: SYMBICORT 160-4.5 MCG INHALER INHALATION SCH ×2 (07:03→20:42)
[2017-06-13] MEDS: IPRATROPIUM 0.5 MG/2.5 ML NEBU INHALATION SCH ×3 (07:03→20:43)
[2017-06-13] MEDS: LEVALBUTEROL NEB (CONC) 1.25 MG/0.5 ML AMP INHALATION SCH ×2 (07:03→18:35)
[2017-06-13 08:28] LABS: Basophils % (A) 0 %; CH 28.2; CHCM 30.9; Eosinophils # (A) 0.2 k/uL (0-0.7); Eosinophils % (A) 2 %; HCT 37.5 % (34.0-46.0); HDW 2.44; HGB 11.8 gm/dL (11.4-16.0); Hypochromasia Slight; Luc # (Auto) 0.18; Luc % (Auto) 2; Lymphocytes % (A) 22 %; MCH 28.8 pg (25.0-35.0); MCHC 31.4 g/dL (31.0-37.0); MCV 91.6 fL (80.0-100.0); Mean Platelet Volume 6.8; Monocytes # (A) 0.5 k/uL (0-1.0); Monocytes % (A) 5 %; Neutrophils # (A) 6.2 k/uL (1.3-7.7); Neutrophils % (A) 68 %; RDW 14.4 % (11.5-15.5); WBC 9.1 k/uL (3.8-10.6); WBC (Perox) 9.57
[2017-06-13 08:40] LABS: ALT 95 U/L (9-52); AST 61 U/L (14-36); Alkaline Phosphatase 137 U/L (38-126); Anion Gap 13 mmol/L; Blood Urea Nitrogen 8 mg/dL (7-17); Calcium 9.3 mg/dL (8.4-10.2); Carbon Dioxide 25 mmol/L (22-30); Chloride 104 mmol/L (98-107); Glucose 91 mg/dL (74-99); Non-African American GFR(MDRD) >60 (>60 ml/min/1.73 sqM); Potassium 4.4 mmol/L (3.5-5.1); Sodium 142 mmol/L (137-145); Total Bilirubin 0.1 mg/dL (0.2-1.3); Total Protein 6.4 g/dL (6.3-8.2)
[2017-06-13] MEDS: PANTOPRAZOLE 40 MG TABLET PO SCH (09:14)
[2017-06-13] MEDS: FUROSEMIDE 10 MG/ML 4 ML VIAL IV SCH (09:15)
[2017-06-13] MEDS: ATORVASTATIN 20 MG TAB PO SCH (09:15)
[2017-06-13] MEDS: HEPARIN SODIUM,PORCINE 5,000 UNIT/ML 1 ML VIAL SQ SCH ×2 (09:15→20:41)
[2017-06-13] MEDS: DOCUSATE 100 MG CAP PO SCH (09:15)
[2017-06-13] MEDS: METOPROLOL TARTRATE 25 MG TAB PO SCH ×2 (09:16→20:41)
[2017-06-13] MEDS: ISOSORBIDE MONONITRATE ER 30 MG TAB.ER.24H PO SCH (09:16)
[2017-06-13] MEDS: CEFEPIME 2 GM in SODIUM CHLORIDE 0.9% 50 ML IVPB SCH ×3 (09:31→23:27)
[2017-06-13 10:27] LABS: Glucose,Whole Blood 96 mg/dL (75-99)
[2017-06-13] MEDS: traMADol 50 MG TAB PO PRN ×2 (11:13→16:42)
--- NOTE | 2017-06-13 11:59 | XR ---
EXAMINATION TYPE: XR chest 2V DATE OF EXAM: 06/13/2017 COMPARISON: 06/12/2017 TECHNIQUE: PA and lateral views submitted. HISTORY: Shortness of breath FINDINGS: Subsegmental changes at both lung bases. No pneumothorax or overt failure. Heart size stable. IMPRESSION: 1. Bilateral lower lobe infiltrate stable with tiny right effusion.
[2017-06-13] MEDS: MULTIVITAMINS, THERA 1 EACH TAB PO SCH (12:51)
[2017-06-13] MEDS ORDERED: VANCOMYCIN TROUGH DUE 1 EACH MISC MISCELLANE ONE (15:00)
--- NOTE | 2017-06-13 17:53 | PN ---
PROGRESS NOTE DATE OF SERVICE: 06/13/2017 INTERVAL HISTORY: This 52-year-old woman who was admitted with COPD acute exacerbation as well as bibasilar atelectasis is being closely monitored at this time. The patient also had recent renal surgery. The patient is on bronchodilators. Patient is feeling much better. However the breath sounds are diminished in the bases indicating poor inspiratory efforts. Repeat chest x-ray was done today which showed still significant lesions in the in the lower part of the chest. The patient was started on broad- spectrum IV antibiotics as well. PAST MEDICAL: Past medical history reviewed. REVIEW OF SYSTEMS: Cardiovascular: No angina. Respiration: As mentioned earlier. GI as mentioned earlier. as mentioned earlier. Nervous system no numbness, weakness. CURRENT MEDICATIONS ARE: Reviewed include: 1. Tylenol 1000 q6h p.r.n. 2. Ventolin p.r.n. 3. Symbicort b.i.d. 4. Cefepime. 5. Lasix. 6. Lopressor. 7. Multivitamins. 8. Ultram. 9. Vancomycin. PHYSICAL EXAM: The patient is alert, oriented times three. Pulse 92. Blood pressure is 120/88, respiration 18, temperature 97.2, pulse ox 98% room air. HEENT: Conjunctivae normal. Neck: No jugular venous distention. Respiratory: Breath sounds diminished in the bases. A few scattered rhonchi and crackles. Expiratory wheezing also present. ABDOMEN: Soft, status post surgery. Nervous system: No focal deficits. LABS: The troponin 0.1, AST is 61 and ALT is 95 and alkaline phosphatase 137, which are improving. Vancomycin noted. ASSESSMENT: 1. Chronic obstructive pulmonary disease acute exacerbation with possible bibasilar atelectasis, pneumonia unlikely per Pulmonary. 2. 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 3. History of recent renal cyst surgery on the left side with left renal exploration with decortication left renal cyst. 4. Bilateral leg edema. 5. History of asthma/chronic obstructive pulmonary disease. 6. Gastroesophageal reflux disease. 7. Hypertension. 8. History of bilateral adrenal masses history. 9. History of the bilateral deep vein thrombosis of the left leg. 10.History of appendectomy. 11.History of cholecystectomy. RECOMMENDATION AND DISCUSSION: Recommend to continue current medications, continue symptomatic treatment. Otherwise I would recommend continue with bronchodilators and empiric antibiotics. Closely monitor with Pulmonary and surgery. Guarded prognosis. Further recommendations to follow. Please note the biopsy report showed a cystic clear cell renal carcinoma with a regression, margins are negative. Continue the DVT prophylaxis. Continue the rest of the medication. Medications are reviewed. Otherwise bronchodilators and incentive spirometry. Further recommendations to follow. MMODL / IJN: [id number] /
[2017-06-13] MEDS ORDERED: ALBUTEROL NEBULIZED 2.5 MG/3 ML INHALATION SCH (20:00)
[2017-06-13] MEDS: LORATADINE 10 MG TAB PO SCH (20:41)
[2017-06-14] MEDS: IPRATROPIUM-ALBUTEROL 3 ML NEB INHALATION SCH ×3 (07:22→20:46)
[2017-06-14] MEDS: SYMBICORT 160-4.5 MCG INHALER INHALATION SCH ×2 (07:22→20:46)
[2017-06-14 07:30] LABS: Basophils % (A) 0 %; CH 27.9; CHCM 30.9; Eosinophils # (A) 0.3 k/uL (0-0.7); Eosinophils % (A) 4 %; HCT 34.7 % (34.0-46.0); Hypochromasia Slight; Luc # (Auto) 0.14; Luc % (Auto) 2; Lymphocytes # (A) 1.6 k/uL (1.0-4.8); Lymphocytes % (A) 21 %; MCH 28.7 pg (25.0-35.0); MCHC 31.7 g/dL (31.0-37.0); MCV 90.8 fL (80.0-100.0); Mean Platelet Volume 6.9; Monocytes # (A) 0.5 k/uL (0-1.0); Monocytes % (A) 6 %; Neutrophils # (A) 5.1 k/uL (1.3-7.7); Neutrophils % (A) 67 %; RBC 3.82 m/uL (3.80-5.40); RDW 14.3 % (11.5-15.5); WBC 7.6 k/uL (3.8-10.6); WBC (Perox) 7.81
[2017-06-14 07:55] LABS: ALT 67 U/L (9-52); AST 33 U/L (14-36); Alkaline Phosphatase 115 U/L (38-126); Anion Gap 9 mmol/L; Blood Urea Nitrogen 8 mg/dL (7-17); Carbon Dioxide 24 mmol/L (22-30); Chloride 106 mmol/L (98-107); Glucose 90 mg/dL (74-99); Non-African American GFR(MDRD) >60 (>60 ml/min/1.73 sqM); Potassium 3.9 mmol/L (3.5-5.1); Sodium 139 mmol/L (137-145); Total Bilirubin 0.1 mg/dL (0.2-1.3); Total Protein 5.8 g/dL (6.3-8.2)
[2017-06-14] MEDS: CEFEPIME 2 GM in SODIUM CHLORIDE 0.9% 50 ML IVPB SCH ×3 (08:21→23:34)
[2017-06-14] MEDS: PANTOPRAZOLE 40 MG TABLET PO SCH (08:27)
[2017-06-14] MEDS: METOPROLOL TARTRATE 25 MG TAB PO SCH ×2 (08:29→21:39)
[2017-06-14] MEDS: FUROSEMIDE 10 MG/ML 4 ML VIAL IV SCH (08:29)
[2017-06-14] MEDS: ISOSORBIDE MONONITRATE ER 30 MG TAB.ER.24H PO SCH (08:29)
[2017-06-14] MEDS: HEPARIN SODIUM,PORCINE 5,000 UNIT/ML 1 ML VIAL SQ SCH ×2 (08:29→21:40)
[2017-06-14] MEDS: ATORVASTATIN 20 MG TAB PO SCH (08:29)
[2017-06-14] MEDS: DOCUSATE 100 MG CAP PO SCH (08:29)
[2017-06-14] MEDS: VANCOMYCIN 1,750 MG in SODIUM CHLORIDE 0.9% 250 ML IVPB SCH (09:31)
--- NOTE | 2017-06-14 09:51 | P.PN ---
Subjective The patient is still in the hospital with respiratory issues. Her incision looks good. No further urologic recommendations. When she is discharged home I would like to see her in the office in approximately 2 weeks. Objective - Vital Signs Vital signs: Vital Signs Temp 97.7 F 06/14/17 07:00 Pulse 84 06/14/17 07:32 Resp 16 06/13/17 23:00 BP 128/64 06/14/17 07:00 Pulse Ox 95 06/14/17 07:00 Intake & Output 06/13/17 06/14/17 06/14/17 18:59 06:59 18:59 Intake Total 1194 240 240 Output Total 550 600 Balance 644 -360 240 Weight 71.5 kg Intake: Oral 1194 240 240 Output: Urine 550 600 Other: Voiding Method Toilet Diaper # Voids 1 - Labs CBC & Chem 7: 06/14/17 06:39 06/14/17 06:39 Labs: Abnormal Lab Results - Last 24 Hours (Table) 06/14/17 06/14/17 Range/Units 06:39 06:39 Hgb 11.0 L (11.4-16.0) gm/dL Total Bilirubin 0.1 L (0.2-1.3) mg/dL ALT 67 H (9-52) U/L Total Protein 5.8 L (6.3-8.2) g/dL Albumin 3.0 L (3.5-5.0) g/dL Microbiology - Last 24 Hours (Table) 06/13/17 12:10 Gram Stain - Preliminary Sputum
[2017-06-14] MEDS: MULTIVITAMINS, THERA 1 EACH TAB PO SCH (12:17)
[2017-06-14] MEDS: traMADol 50 MG TAB PO PRN ×2 (16:45→23:38)
--- NOTE | 2017-06-14 17:36 | PN ---
PROGRESS NOTE DATE OF SERVICE: 06/14/2017 This 52-year-old woman who was admitted with COPD acute exacerbation as well as bibasilar pneumonia still has significant atelectasis in the lungs. Pulmonary is following the patient closely. No chest pain. No palpitations. No fever. Cultures are negative so far. PHYSICAL EXAM: On exam, alert, oriented x2. Pulse 84, blood pressure is 128/64, respirations 12, temperature 97.7, pulse ox 94% on room air. HEENT: Conjunctivae normal. NECK: No jugular venous distention. CARDIOVASCULAR: S1 and S2 muffled. RESPIRATORY: Breath sounds diminished at the bases. A few scattered rhonchi and crackles. Abdomen is soft, nontender. LEGS: No edema, no swelling. NERVOUS SYSTEM: No focal deficits. LABS: LFTs are improving. Albumin is 3. WBC 7.6. Hemoglobin 11. ASSESSMENT: 1. Chronic obstructive pulmonary disease acute exacerbation with possible bibasilar atelectasis or with tracheobronchitis, pneumonia unlikely per Pulmonary. 2. Cystic clear cell renal cell carcinoma with regression with margins negative. 3. Status post left renal exploration with decortication of the left renal cyst. 4. Bilateral leg edema, improved. 5. History of asthma, chronic obstructive pulmonary disease. 6. History of gastroesophageal reflux disease. 7. Hypertension. 8. History of bilateral adrenal mass history. 9. History of bilateral deep venous thrombosis history. 10.History of appendectomy. 11.History of cholecystectomy. RECOMMENDATIONS AND DISCUSSION: Recommend to continue current medications, continue with monitoring and symptomatic treatment. Otherwise at this time I recommend continue with current medications, continue with symptomatic medications. Otherwise improving, incentive spirometry. sputum culture. Further recommendations to follow. MMODL / IJN: [id number] / [facility]
[2017-06-14] MEDS: LORATADINE 10 MG TAB PO SCH (21:39)
[2017-06-15 06:59] LABS: Basophils % (A) 0 %; CH 27.8; CHCM 30.7; Eosinophils # (A) 0.2 k/uL (0-0.7); Eosinophils % (A) 3 %; HCT 35.1 % (34.0-46.0); HDW 2.51; Hypochromasia Moderate; Luc % (Auto) 3; Lymphocytes # (A) 1.8 k/uL (1.0-4.8); Lymphocytes % (A) 25 %; MCH 28.5 pg (25.0-35.0); MCHC 31.4 g/dL (31.0-37.0); MCV 90.9 fL (80.0-100.0); Mean Platelet Volume 6.8; Monocytes # (A) 0.4 k/uL (0-1.0); Monocytes % (A) 5 %; Neutrophils # (A) 4.5 k/uL (1.3-7.7); Neutrophils % (A) 63 %; RBC 3.87 m/uL (3.80-5.40); RDW 14.3 % (11.5-15.5); WBC 7.1 k/uL (3.8-10.6); WBC (Perox) 7.25
[2017-06-15] MEDS: SYMBICORT 160-4.5 MCG INHALER INHALATION SCH ×2 (07:15→19:54)
[2017-06-15] MEDS: IPRATROPIUM-ALBUTEROL 3 ML NEB INHALATION SCH ×3 (07:15→19:54)
[2017-06-15 07:17] LABS: ALT 52 U/L (9-52); AST 20 U/L (14-36); Alkaline Phosphatase 106 U/L (38-126); Anion Gap 9 mmol/L; Blood Urea Nitrogen 9 mg/dL (7-17); Calcium 8.8 mg/dL (8.4-10.2); Carbon Dioxide 24 mmol/L (22-30); Chloride 106 mmol/L (98-107); Glucose 85 mg/dL (74-99); Non-African American GFR(MDRD) >60 (>60 ml/min/1.73 sqM); Sodium 139 mmol/L (137-145); Total Bilirubin 0.1 mg/dL (0.2-1.3)
[2017-06-15] MEDS: FUROSEMIDE 10 MG/ML 4 ML VIAL IV SCH (07:39)
[2017-06-15] MEDS: CEFEPIME 2 GM in SODIUM CHLORIDE 0.9% 50 ML IVPB SCH ×3 (07:39→23:41)
[2017-06-15] MEDS: HEPARIN SODIUM,PORCINE 5,000 UNIT/ML 1 ML VIAL SQ SCH ×2 (07:39→20:31)
[2017-06-15] MEDS: ISOSORBIDE MONONITRATE ER 30 MG TAB.ER.24H PO SCH (07:39)
[2017-06-15] MEDS: DOCUSATE 100 MG CAP PO SCH (07:40)
[2017-06-15] MEDS: METOPROLOL TARTRATE 25 MG TAB PO SCH ×2 (07:40→20:31)
[2017-06-15] MEDS: ATORVASTATIN 20 MG TAB PO SCH (07:40)
[2017-06-15] MEDS: PANTOPRAZOLE 40 MG TABLET PO SCH (07:40)
[2017-06-15] MEDS: VANCOMYCIN 1,750 MG in SODIUM CHLORIDE 0.9% 250 ML IVPB SCH (08:45)
[2017-06-15] MEDS: traMADol 50 MG TAB PO PRN ×3 (09:03→23:47)
[2017-06-15] MEDS: MULTIVITAMINS, THERA 1 EACH TAB PO SCH (11:19)
[2017-06-15] MEDS: LORATADINE 10 MG TAB PO SCH (20:31)
[2017-06-16] MEDS: SYMBICORT 160-4.5 MCG INHALER INHALATION SCH ×2 (07:02→20:32)
[2017-06-16] MEDS: IPRATROPIUM-ALBUTEROL 3 ML NEB INHALATION SCH ×3 (07:02→20:32)
[2017-06-16] MEDS: PANTOPRAZOLE 40 MG TABLET PO SCH (07:16)
[2017-06-16] MEDS: CEFEPIME 2 GM in SODIUM CHLORIDE 0.9% 50 ML IVPB SCH (07:16)
[2017-06-16] MEDS: DOCUSATE 100 MG CAP PO SCH (07:17)
[2017-06-16] MEDS: FUROSEMIDE 10 MG/ML 4 ML VIAL IV SCH (07:17)
[2017-06-16] MEDS: HEPARIN SODIUM,PORCINE 5,000 UNIT/ML 1 ML VIAL SQ SCH ×2 (07:17→20:34)
[2017-06-16] MEDS: ATORVASTATIN 20 MG TAB PO SCH (07:17)
[2017-06-16] MEDS: ISOSORBIDE MONONITRATE ER 30 MG TAB.ER.24H PO SCH (07:18)
[2017-06-16] MEDS: METOPROLOL TARTRATE 25 MG TAB PO SCH ×2 (07:18→20:34)
[2017-06-16 07:32] LABS: ALT 42 U/L (9-52); AST 17 U/L (14-36); Alkaline Phosphatase 121 U/L (38-126); Anion Gap 10 mmol/L; Blood Urea Nitrogen 6 mg/dL (7-17); Calcium 8.8 mg/dL (8.4-10.2); Carbon Dioxide 23 mmol/L (22-30); Chloride 106 mmol/L (98-107); Glucose 85 mg/dL (74-99); Non-African American GFR(MDRD) >60 (>60 ml/min/1.73 sqM); Potassium 3.6 mmol/L (3.5-5.1); Sodium 139 mmol/L (137-145); Total Bilirubin 0.2 mg/dL (0.2-1.3); Total Protein 6.1 g/dL (6.3-8.2)
[2017-06-16 07:47] LABS: Basophils % (A) 0 %; CHCM 30.8; Eosinophils # (A) 0.3 k/uL (0-0.7); Eosinophils % (A) 4 %; HCT 36.5 % (34.0-46.0); HDW 2.53; HGB 11.3 gm/dL (11.4-16.0); Hypochromasia Slight; Luc # (Auto) 0.14; Luc % (Auto) 2; Lymphocytes # (A) 1.9 k/uL (1.0-4.8); Lymphocytes % (A) 24 %; MCH 28.2 pg (25.0-35.0); MCHC 30.9 g/dL (31.0-37.0); MCV 91.3 fL (80.0-100.0); Mean Platelet Volume 6.6; Monocytes # (A) 0.3 k/uL (0-1.0); Monocytes % (A) 4 %; Neutrophils # (A) 5.1 k/uL (1.3-7.7); Neutrophils % (A) 66 %; RDW 14.3 % (11.5-15.5); WBC 7.7 k/uL (3.8-10.6); WBC (Perox) 8.03
[2017-06-16] MEDS: VANCOMYCIN 1,750 MG in SODIUM CHLORIDE 0.9% 250 ML IVPB SCH (08:39)
--- NOTE | 2017-06-16 10:12 | XR ---
EXAMINATION TYPE: XR chest 2V DATE OF EXAM: 06/16/2017 COMPARISON: 06/13/2017 HISTORY: Shortness of breath TECHNIQUE: Frontal and lateral views of the chest are obtained. FINDINGS: Bilateral lower lobe infiltrate greater on the right stable. No interstitial edema or pneum othorax. Arthropathy of the shoulders. Heart size stable. IMPRESSION: 1. Bilateral lower lobe infiltrate greater on the right stable.
[2017-06-16] MEDS: traMADol 50 MG TAB PO PRN ×2 (12:36→22:01)
[2017-06-16] MEDS: MULTIVITAMINS, THERA 1 EACH TAB PO SCH (12:46)
[2017-06-16] MEDS: LORATADINE 10 MG TAB PO SCH (20:34)
--- NOTE | 2017-06-16 20:47 | PN ---
PROGRESS NOTE DATE OF SERVICE: 06/15/2017 This 52-year-old woman who was admitted with COPD, acute exacerbation, is on IV antibiotics. No chest pain. No palpitations. No fever. Increasing cough is reported. PHYSICAL EXAMINATION: Alert, oriented x3. The pulse is 87, blood pressure 101/52, respiration 20, temperature 97.6, pulse ox 98% on room air. HEENT: Conjunctivae normal. NECK: No jugular venous distention. CARDIOVASCULAR SYSTEM: S1, S2 muffled. RESPIRATORY SYSTEM: Breath sounds diminished at the bases. A few scattered rhonchi and crackles. ABDOMEN: Soft, non-tender. LEGS: No edema. No swelling. NERVOUS SYSTEM: No focal deficit. LABS: Labs at this time show WBC 7.7, hemoglobin 11. Albumin is 3.1. ASSESSMENT: 1. Chronic obstructive pulmonary disease, acute exacerbation, with possible bibasilar atelectasis and tracheobronchitis and possible pneumonia. 2. Cystic clear cell renal cell carcinoma with regression with margins negative. 3. Status post left renal exploration with decortication of the left renal cyst. 4. Bilateral leg edema, improved. 5. History of asthma and chronic obstructive pulmonary disease. 6. History of gastroesophageal reflux disease. RECOMMENDATIONS AND DISCUSSION: I recommend to continue current medication, continue symptomatic treatment. Otherwise, at this time continue with the bronchodilators. Continue with symptomatic treatment. Guarded prognosis. Further recommendations to follow. See orders for further details. MMODL / IJN: [id number] /
--- NOTE | 2017-06-16 20:56 | PN ---
PROGRESS NOTE DATE OF SERVICE: 06/16/2017 This 52-year-old woman who was admitted with COPD exacerbation also had multiple medical problems, including possible pneumonia. No chest pain. No palpitations. Complains cough at this time. PHYSICAL EXAMINATION: Alert, oriented x3. Pulse is 79. Blood pressure 113/56, respiration 18, temperature 98.1, pulse ox 96% on room air. HEENT: Conjunctivae normal. NECK: No jugular venous distention. CARDIOVASCULAR SYSTEM: S1, S2 muffled. RESPIRATORY SYSTEM: Breath sounds diminished at the bases. A few scattered rhonchi and crackles. ABDOMEN: Soft, non-tender. LEGS: No edema. No swelling. NERVOUS SYSTEM: No focal deficit. LABS: Hemoglobin 11.3, potassium 3.2. ASSESSMENT: 1. Chronic obstructive pulmonary disease, acute exacerbation, with possible bibasilar atelectasis and tracheobronchitis and possible bronchopneumonia. 2. Cystic clear cell renal cell carcinoma with regression with margins negative. 3. Status post left renal exploration with decortication of the left renal cyst. 4. Bilateral leg edema. 5. History of asthma and chronic obstructive pulmonary disease. RECOMMENDATIONS AND DISCUSSION: I recommend to continue current medication, continue symptomatic treatment, continue with the bronchodilators, continue with incentive spirometry. Guarded prognosis because of multiple complex medical issues. Further recommendations to follow. MMODL / IJN: [id number] /
--- NOTE | 2017-06-17 06:18 | CONS ---
CONSULTATION DATE OF CONSULTATION: 06/16/2017. REASON FOR CONSULTATION: Pneumonia and antibiotic recommendation. HISTORY OF PRESENT ILLNESS: The patient is a 52-year-old female who is status post left renal cyst decortication by Dr. Castellano about a week prior to presentation to hospital. The patient presented to the [facility] ER on 06/11/2017 with chief complaints of increasing shortness of breath. She did have minimal cough and some yellow sputum production. No hemoptysis. No chest pain. No nausea, vomiting, or diarrhea. Abdominal wound is healing well except at the lateral end, which is still open, but no significant drainage from it. The patient subsequently was evaluated by the ER physician. The patient did have a CT angiogram that was negative for PE. However, did show bilateral pulmonary infiltrate with question of pneumonia. The patient has been treated with broad-spectrum antibiotic in the form of vancomycin and cefepime. However, there was no blood cultures done. She did have a sputum culture that was usual respiratory mario. I was asked to see the patient last night for further recommendation regarding antibiotic therapy. REVIEW OF SYSTEMS: CONSTITUTIONAL: Positive for weakness and chills. EYES: No complaint. ENT: No complaint. RESPIRATORY: As per HPI. CARDIOVASCULAR: No complaint. GENITOURINARY: No complaint. GASTROINTESTINAL: As per HPI. MUSCULOSKELETAL: No complaint. INTEGUMENTARY: No complaint. PSYCHOLOGICAL: No complaint. ENDOCRINE: No complaint. NEUROLOGIC: No complaint. PAST MEDICAL HISTORY: Significant for COPD, asthma, gastroesophageal reflux disease, hypertension and left renal cyst. PAST SURGICAL HISTORY: Appendectomy, cholecystectomy, hernia repair, hysterectomy, tonsillectomy, tubal ligation and left renal cyst removal. SOCIAL HISTORY: Remote history of smoking. No drug use. FAMILY HISTORY: Mother with history of breast cancer and of congestive heart failure. Father with history of diabetes mellitus and of diabetic complication. ALLERGIES: XANAX, ASPIRIN, ZITHROMAX, PENICILLIN, which is mostly rash and tolerated cefepime without any problem. CURRENT MEDICATION: Medication currently include the patient is on Tylenol, DuoNeb, Lipitor, Symbicort, Rocephin, cefepime, Colace, Lasix, heparin, Imdur, Claritin, Lopressor, Theragran, Protonix, Ultram, and add vancomycin pharmacy to dose. EXAMINATION: Blood pressure is 113/56 with pulse of 76, temperature 98.1. She is 96% on room air. General description is a middle aged female lying in bed in no distress. No tachypnea or accessory muscle of respiration use. HEENT: Shows pallor. No scleral icterus. Oral mucosa membrane is dry. NECK: Trachea central. No thyromegaly. LUNGS: Unlabored breathing. Decreased breath sounds in the bases. No wheeze or crackle. HEART: S1, S2. Regular rate and rhythm. ABDOMEN: Soft. The incision is healing well except on the lateral side, which is slightly open, but no induration or fluctuation. No drainage was noted. EXTREMITIES: No edema feet. SKIN: No rash or mass palpable. NEUROLOGICAL: Patient is awake, alert, oriented x3. Mood and affect normal. LABS: Hemoglobin 11.3, white count 7.7, BUN of 6, creatinine 0.71. Vancomycin trough of 17.6. Sputum is usual respiratory mario. DIAGNOSTIC IMPRESSION AND PLAN: 1. Patient with bilateral pneumonia in patient who has been recently in the hospital and did have a left renal cyst decortication with initial concern for possible nosocomial pathogen. However, sputum has been negative for resistant pathogen. No blood cultures were done with overall improvement in her respiratory status. 2. Patient with multiple antibiotic allergies that does limit number of antibiotics that can be safely used. PLAN: 1. We will discontinue the vancomycin and cefepime as no resistant organism has been grown. 2. The patient was started on Rocephin 1 g IV piggyback daily. The patient did have overall improvement. She will be able to finish therapy with p.o. Ceftin. 3. We will follow up on the clinical condition to further adjust medication if needed. Thank you for this consultation. Will follow this patient along with you. MMODL / IJN: [id number] /
[2017-06-17] MEDS: PANTOPRAZOLE 40 MG TABLET PO SCH (07:32)
--- NOTE | 2017-06-17 07:37 | P.PN ---
Subjective Principal diagnosis: The patient is still in the hospital with her acute bronchial issues. She is feeling much better. She is afebrile. I discussed the pathology report from the [facility] with the patient. I will follow her kidney over the next several years to make sure there is no recurrence however the amount of cancer noted was minimal fortunately and margins were clear. Objective - Vital Signs Vital signs: Vital Signs Temp 98.2 F 06/17/17 07:00 Pulse 93 06/17/17 07:00 Resp 16 06/17/17 07:00 BP 125/80 06/17/17 07:00 Pulse Ox 96 06/17/17 07:00 Intake & Output 06/16/17 06/17/17 06/17/17 18:59 06:59 18:59 Intake Total 1000 200 Output Total 1950 125 Balance -950 75 Weight 108 kg 104 kg Intake: IV 50 Cefepime 2 gm In Sodium 50 Chloride 0.9% 50 ml @ 100 mls/hr IVPB Q8HR GIULIA Rx# :[id number] Intake, IV Titration 350 Amount Vancomycin 1,750 mg In 250 Sodium Chloride 0.9% 250 ml @ 125 mls/hr IVPB Q24HR GIULIA Rx#:[id number] cefTRIAXone 1,000 mg In 100 Sodium Chloride 0.9% 50 ml @ 100 mls/hr IVPB Q24HR GIULIA Rx#:[id number] Oral 600 200 Output: Urine 1950 125 Other: Voiding Method Toilet Toilet # Voids 4 2 # Bowel Movements 1 - Labs CBC & Chem 7: 06/16/17 06:55 06/16/17 06:55 Labs: Abnormal Lab Results - Last 24 Hours (Table) 06/16/17 06/16/17 Range/Units 06:55 06:55 Hgb 11.3 L (11.4-16.0) gm/dL MCHC 30.9 L (31.0-37.0) g/dL BUN 6 L (7-17) mg/dL Total Protein 6.1 L (6.3-8.2) g/dL Albumin 3.2 L (3.5-5.0) g/dL
[2017-06-17] MEDS: ATORVASTATIN 20 MG TAB PO SCH (08:13)
[2017-06-17] MEDS: DOCUSATE 100 MG CAP PO SCH (08:14)
[2017-06-17] MEDS: HEPARIN SODIUM,PORCINE 5,000 UNIT/ML 1 ML VIAL SQ SCH ×2 (08:15→20:48)
[2017-06-17] MEDS: ISOSORBIDE MONONITRATE ER 30 MG TAB.ER.24H PO SCH (08:16)
[2017-06-17] MEDS: METOPROLOL TARTRATE 25 MG TAB PO SCH ×2 (08:17→20:48)
[2017-06-17] MEDS: IPRATROPIUM-ALBUTEROL 3 ML NEB INHALATION SCH ×3 (08:26→19:08)
[2017-06-17] MEDS: SYMBICORT 160-4.5 MCG INHALER INHALATION SCH ×2 (08:26→19:06)
[2017-06-17] MEDS: FUROSEMIDE 10 MG/ML 4 ML VIAL IV SCH (10:20)
[2017-06-17] MEDS: traMADol 50 MG TAB PO PRN ×2 (10:41→22:34)
[2017-06-17] MEDS: FLUCONAZOLE 100 MG TAB PO SCH (11:54)
[2017-06-17] MEDS: MULTIVITAMINS, THERA 1 EACH TAB PO SCH (11:56)
--- NOTE | 2017-06-17 17:51 | PN ---
PROGRESS NOTE DATE OF SERVICE: 06/17/2017 INTERVAL HISTORY: This 52-year-old woman was admitted with possible bronchopneumonia and atelectasis, also had recent renal surgery for renal cancer. No chest pain. No palpitations. No fever. EXAM: Alert, oriented x3. Pulse is 93, blood pressure 125/80, respirations 16, temperature 98.2, pulse ox 98% on room air. HEENT is conjunctivae normal. Neck no jugular venous distention. Cardiovascular: S1, S2 muffled. Respiratory: Breath sounds diminished in the bases. A few scattered rhonchi and crackles. Abdomen is soft, nontender. Legs no edema, no swelling. Central nervous system: No focal deficits. LABS: WBC 7.2, hemoglobin 11.3, albumin 3.2. ASSESSMENT: 1. Chronic obstructive pulmonary disease acute exacerbation with possible bibasilar atelectasis and tracheobronchitis with possible bronchopneumonia. 2. Cystic clear cell renal carcinoma with regression and with margins negative. 3. Status post left renal exploration with the decortication of the left renal cyst. 4. Bilateral leg edema. 5. History of asthma and chronic obstructive pulmonary disease. RECOMMENDATIONS AND DISCUSSION: Recommend to continue current medication and management and symptomatic treatment. Continue the antibiotics. Dr. Canas has recommended Rocephin followed by Ceftin at this time. Continue to monitor. Further recommendations to follow. MMODL / IJN: [id number] /
[2017-06-17] MEDS: LORATADINE 10 MG TAB PO SCH (20:49)
--- NOTE | 2017-06-17 22:54 | PN ---
PROGRESS NOTE DATE OF SERVICE: 06/17/2017. REASON FOR FOLLOW UP: Pneumonia. INTERVAL HISTORY: The patient is afebrile. She is breathing slightly comfortably. She still has some cough, bringing up some sputum. No hemoptysis. No chest pain. No abdominal pain or diarrhea. PHYSICAL EXAMINATION: Blood pressure is 117/58 with a pulse of 92, temperature 97.9, he is 96% on room air. General description is a middle aged female, lying in bed, in no distress. Respiratory system unlabored breathing. Decreased breath sounds at the bases. Heart, S1, S2. Regular rate and rhythm. Abdomen soft. No tenderness. LABS: Hemoglobin 11.2, white count of 7.7, BUN of 6 with a creatinine 0.71. DIAGNOSTIC IMPRESSION AND PLAN: 1. Patient with pneumonia, likely community acquired. Sputum has been negative for resistant pathogen. He will be continued on the Rocephin. The patient continues to improve, plan to continue therapy with p.o. Ceftin. 2. Patient with left abdominal wound, post renal cyst site decortication. Local wound care with Aquacel Silver. MMODL / IJN: [id number] /
[2017-06-18] MEDS: IPRATROPIUM-ALBUTEROL 3 ML NEB INHALATION SCH ×2 (07:28→11:25)
[2017-06-18] MEDS: SYMBICORT 160-4.5 MCG INHALER INHALATION SCH ×2 (07:29→07:42)
[2017-06-18 08:02] VITALS: RESP 18; TEMP 98.6
[2017-06-18] MEDS: ATORVASTATIN 20 MG TAB PO SCH (08:43)
[2017-06-18] MEDS: DOCUSATE 100 MG CAP PO SCH (08:43)
[2017-06-18] MEDS: ISOSORBIDE MONONITRATE ER 30 MG TAB.ER.24H PO SCH (08:43)
[2017-06-18] MEDS: METOPROLOL TARTRATE 25 MG TAB PO SCH (08:43)
[2017-06-18] MEDS: FLUCONAZOLE 100 MG TAB PO SCH (08:43)
[2017-06-18] MEDS: PANTOPRAZOLE 40 MG TABLET PO SCH (08:43)
[2017-06-18] MEDS: FUROSEMIDE 10 MG/ML 4 ML VIAL IV SCH (08:44)
[2017-06-18] MEDS: HEPARIN SODIUM,PORCINE 5,000 UNIT/ML 1 ML VIAL SQ SCH (08:44)
[2017-06-18] MEDS: traMADol 50 MG TAB PO PRN (08:59)
[2017-06-18 09:33] VITALS: BMI 40.7
[2017-06-18] MEDS: MULTIVITAMINS, THERA 1 EACH TAB PO SCH (11:28)
[2017-06-18 14:31] VITALS: BP 140/79; PULSE 101
--- NOTE | 2017-06-18 17:56 | P.DS ---
Providers Date of admission: 06/11/17 13:45 Attending physician: Susan Gonsalez Consults: 06/11/17 13:56 Consult Physician Stat Consulting Provider: Oli Barrett Consult Reason/Comments: Bilateral pneumonia Do you want consulting provider notified?: Yes 06/11/17 16:36 Consult Physician Routine Consulting Provider: Tank Castellano Consult Reason/Comments: recent surgery Do you want consulting provider notified?: Yes 06/15/17 19:14 Consult Physician Routine Consulting Provider: Rand Canas Consult Reason/Comments: drainage from old JANICE drain site. 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 However the patient is presented with a COPD acute exacerbation as well as possible bibasilar pneumonia to [facility] recommended. Pneumonia was suspected by Dr. Canas. Patient was treated with antibiotics and bronchodilators. Patient improved significantly. The cultures are negative so far. Patient be discharged in a stable condition with guarded prognosis with further plans to complete a course of Ceftin according to infectious disease. The patient be discharged in a stable condition with guarded prognosis. Total time taken 35 minutes. Patient be evaluated for home oxygen after walking full- length of the corridorr and check pulse ox. On exam vitals are stable. Cardio S1 and S2 normal. Respiratory system few scattered rhonchi in the bases. Abdomen soft nontender no mass palpable. I also recommended the patient to follow-up with the primary physician and as well as some pulmonology and infectious disease and as well as continue to use the incentive spirometry aggressively. Final diagnosis. 1. COPD acute exacerbation with a possible bibasilar atelectasis as well as some possible bronchopneumonia. 2. Cystic clear cell renal carcinoma with regression with the margins negative. 3. Status post left renal exploration with a decortication of the left wrist. 4. Bilateral leg edema. 5. History of asthma and COPD. Patient Condition at Discharge: Fair Plan - Discharge Summary New Discharge Prescriptions: New Cefuroxime Axetil [Ceftin] 500 mg PO BID #14 tab Fluconazole [Diflucan] 100 mg PO DAILY #5 tab Ipratropium-Albuterol Nebulize [Duoneb 0.5 mg-3 mg/3 ml Soln] 3 ml INHALATION RT-QID #120 neb Ipratropium-Albuterol Nebulize [Duoneb 0.5 mg-3 mg/3 ml Soln] 3 ml INHALATION RT-Q4H PRN #0 neb PRN Reason: shortness of breath methylPREDNISolone Dose Pack [Medrol Dose Pack] 4 mg PO DIRECTED #21 package Multivitamins, Thera [Multivitamin (formulary)] 1 each PO DAILY@1200 #30 tab Famotidine [Pepcid] 20 mg PO BID #30 tablet Continue Loratadine [Claritin] 10 mg PO HS Budesonide-Formot 160-4.5 Mcg [Symbicort 160-4.5 Mcg Inhaler] 2 puff INHALATION RT-BID Furosemide [Lasix] 20 mg PO DAILY PRN PRN Reason: Edema Isosorbide Mononitrate ER [Imdur] 30 mg PO DAILY Atorvastatin [Lipitor] 20 mg PO DAILY Metoprolol Tartrate [Lopressor] 25 mg PO BID traMADol HCL [Ultram] 50 mg PO Q6HR PRN PRN Reason: Pain Docusate [Colace] 100 mg PO DAILY Acetaminophen Tab [Tylenol] 1,000 mg PO Q6HR PRN PRN Reason: Pain Or Fever > 100.5 Discontinued Ipratropium Nebulized [Atrovent Nebulized] 0.5 mg INHALATION RT-TID Albuterol Nebulized [Ventolin Nebulized] 2.5 mg INHALATION RT-TID PRN PRN Reason: Shortness Of Breath Albuterol Inhaler [Ventolin Hfa Inhaler] 2 puff INHALATION RT-QID PRN PRN Reason: Shortness Of Breath Discharge Medication List Budesonide-Formot 160-4.5 Mcg [Symbicort 160-4.5 Mcg Inhaler] 2 puff INHALATION RT-BID 08/05/14 [History] Loratadine [Claritin] 10 mg PO HS 08/05/14 [History] Atorvastatin [Lipitor] 20 mg PO DAILY 11/06/16 [History] Furosemide [Lasix] 20 mg PO DAILY PRN 11/06/16 [History] Isosorbide Mononitrate ER [Imdur] 30 mg PO DAILY 11/06/16 [History] Metoprolol Tartrate [Lopressor] 25 mg PO BID 05/30/17 [History] Acetaminophen Tab [Tylenol] 1,000 mg PO Q6HR PRN 06/11/17 [History] Docusate [Colace] 100 mg PO DAILY 06/11/17 [History] traMADol HCL [Ultram] 50 mg PO Q6HR PRN 06/11/17 [History] Cefuroxime Axetil [Ceftin] 500 mg PO BID #14 tab 06/18/17 [Rx] Famotidine [Pepcid] 20 mg PO BID #30 tablet 06/18/17 [Rx] Fluconazole [Diflucan] 100 mg PO DAILY #5 tab 06/18/17 [Rx] Ipratropium-Albuterol Nebulize [Duoneb 0.5 mg-3 mg/3 ml Soln] 3 ml INHALATION RT -Q4H PRN #0 neb 06/18/17 [Rx] Ipratropium-Albuterol Nebulize [Duoneb 0.5 mg-3 mg/3 ml Soln] 3 ml INHALATION RT -QID #120 neb 06/18/17 [Rx] Multivitamins, Thera [Multivitamin (formulary)] 1 each PO DAILY@1200 #30 tab 12/30 [Rx] methylPREDNISolone Dose Pack [Medrol Dose Pack] 4 mg PO DIRECTED #21 package 06/18/17 [Rx] Follow up Appointment(s)/Referral(s): Florinda Matos MD [Primary Care Provider] - 06/25/17 11:00 am [facility], [NON-STAFF] - 1 Week Rand Canas MD [STAFF PHYSICIAN] - 06/26/17 10:45 am Ambulatory/Diagnostic Orders: Complete Blood Count w/diff [LAB.AMB] Location: Determined By Patient Patient Instructions/Handouts: Cefuroxime (By mouth), Famotidine (By mouth), Fluconazole (By mouth), Methylprednisolone (By mouth), Ipratropium/Albuterol ( By breathing), How to Use an Incentive Spirometer (DC), Pneumonia (DC) Activity/Diet/Wound Care/Special Instructions: diet cardiac act limited till f/u yogurt 1 po tid IS q 10 mts check ra pulse ox post ambulation Discharge Disposition: HOME SELF-CARE
--- NOTE | 2017-06-18 20:28 | PN ---
PROGRESS NOTE DATE OF SERVICE: 06/18/2017. REASON FOR FOLLOWUP: Pneumonia and left lower abdominal wound. INTERVAL HISTORY: The patient was seen on rounds this afternoon. The patient has been breathing comfortably. She still has a cough and bringing up some sputum, but no hemoptysis. No chest pain. No abdominal pain or any diarrhea. PHYSICAL EXAMINATION: Blood pressure is 140/79 with a pulse of 101, temperature of 98. She is 96% on room air. GENERAL DESCRIPTION: A middle-aged female up in the bed in no distress. RESPIRATORY SYSTEM: Unlabored breathing. Decreased anterior breath sounds. No wheeze. HEART: S1, S2. Regular rate and rhythm. ABDOMEN: Soft. No tenderness. LABS: Hemoglobin is 11.2, white count 7.7 with a BUN of 6, creatinine 0.71. Sputum has usual respiratory mario. DIAGNOSTIC IMPRESSION AND PLAN: 1. Patient admitted to the hospital with pneumonia. Sputum has the usual respiratory mario. Patient did show overall improvement on Rocephin. Will be able to finish therapy with p.o. Ceftin for another 7 to 10 days with close outpatient followup. 2. Patient with lower abdominal wound. Recommend Aquacel Silver packing and outpatient followup. MMODL / IJN: [id number] /
== END 2017-06-18 18:40 | disposition home or self-care (01) | DRG 190 ==
LOC: EC 10:36 → 5MS5E 13:45
PROVIDERS: ADMIT Hospitalist; ATTEND Hospitalist
DX: J44.0 Chronic obstructive pulmonary disease with (acute) lower respiratory infection (principal); J18.9 Pneumonia, unspecified organism; C64.9 Malignant neoplasm of unspecified kidney, except renal pelvis; J44.1 Chronic obstructive pulmonary disease with (acute) exacerbation; R60.0 Localized edema; K21.9 Gastro-esophageal reflux disease without esophagitis; I10 Essential (primary) hypertension; H91.92 Unspecified hearing loss, left ear; R32 Unspecified urinary incontinence; R10.9 Unspecified abdominal pain; Z83.3 Family history of diabetes mellitus; Z82.49 Family history of ischemic heart disease and other diseases of the circulatory system; Z80.3 Family history of malignant neoplasm of breast; Z79.899 Other long term (current) drug therapy; Z79.51 Long term (current) use of inhaled steroids; Z87.891 Personal history of nicotine dependence; Z86.718 Personal history of other venous thrombosis and embolism; Z87.19 Personal history of other diseases of the digestive system; Z88.6 Allergy status to analgesic agent; Z88.1 Allergy status to other antibiotic agents; Z88.0 Allergy status to penicillin; Z88.8 Allergy status to other drugs, medicaments and biological substances; Z90.89 Acquired absence of other organs; Z90.49 Acquired absence of other specified parts of digestive tract; Z90.710 Acquired absence of both cervix and uterus
CPT/HCPCS: 36415; 71020; 71275; 80053; 80202; 81003; 83605; 83735; 83880; 84484; 85025; 85379; 85610; 85730; 87070; 87077; 87186; 87205; 93005; 93306; 94640; 94760; 96365; 96366; 96367; 96375; 99285

== ENCOUNTER 2017-07-14 21:13 | Inpatient (IN) | payer OTHER ==
[2017-07-14] MEDS ORDERED: MELATONIN 3 MG TABLET PO PRN (22:30)
[2017-07-14] MEDS ORDERED: IPRATROPIUM-ALBUTEROL 3 ML NEB INHALATION PRN (22:56)
[2017-07-14] MEDS ORDERED: NITROGLYCERIN SL TABS 0.4 MG TAB SUBLINGUAL PRN (23:07)
[2017-07-15] MEDS: SODIUM CHLORIDE 0.9% 1,000 ML IV SCH ×3 (00:18→19:37)
[2017-07-15] MEDS: traMADol 50 MG TAB PO PRN ×2 (03:19→21:47)
[2017-07-15] MEDS: CLOPIDOGREL 75 MG TAB PO SCH (06:07)
[2017-07-15] MEDS: predniSONE 20 MG TAB PO SCH (06:07)
[2017-07-15] MEDS: ATORVASTATIN 20 MG TAB PO SCH (06:07)
[2017-07-15] MEDS: DOXYCYCLINE 50 MG CAP PO SCH ×2 (06:07→19:37)
[2017-07-15] MEDS: METOPROLOL TARTRATE 25 MG TAB PO SCH ×2 (06:08→19:37)
[2017-07-15 06:33] LABS: Basophils % (A) 0 %; CH 27.9; CHCM 30.3; Eosinophils % (A) 1 %; HCT 34.8 % (34.0-46.0); HGB 10.8 gm/dL (11.4-16.0); Hypochromasia Moderate; Luc # (Auto) 0.12; Luc % (Auto) 2; Lymphocytes # (A) 1.5 k/uL (1.0-4.8); Lymphocytes % (A) 18 %; MCH 28.6 pg (25.0-35.0); MCV 92.3 fL (80.0-100.0); Mean Platelet Volume 7.2; Monocytes # (A) 0.4 k/uL (0-1.0); Monocytes % (A) 5 %; Neutrophils # (A) 6.2 k/uL (1.3-7.7); Neutrophils % (A) 76 %; RBC 3.77 m/uL (3.80-5.40); RDW 13.8 % (11.5-15.5); WBC 8.3 k/uL (3.8-10.6); WBC (Perox) 7.78
[2017-07-15 06:44] LABS: Anion Gap 10 mmol/L; Blood Urea Nitrogen 6 mg/dL (7-17); Calcium 9.3 mg/dL (8.4-10.2); Carbon Dioxide 21 mmol/L (22-30); Chloride 107 mmol/L (98-107); Glucose 112 mg/dL (74-99); Non-African American GFR(MDRD) >60 (>60 ml/min/1.73 sqM); Potassium 4.6 mmol/L (3.5-5.1); Sodium 138 mmol/L (137-145)
[2017-07-15] MEDS: IPRATROPIUM-ALBUTEROL 3 ML NEB INHALATION SCH ×4 (07:55→21:10)
--- NOTE | 2017-07-15 08:21 | XR ---
EXAMINATION TYPE: XR chest 2V DATE OF EXAM: 07/15/2017 COMPARISON: Prior chest x-ray 06/16/2017 HISTORY: Pneumonia TECHNIQUE: Frontal and lateral views of the chest are obtained. FINDINGS: Minimal patchy basilar density is present. No evident pneumothorax or pleural effusion. In terstitium is increased. Cardiomediastinal silhouette, pulmonary vascularity and luisa are not signifi cantly changed. IMPRESSION: There is some improvement in aeration. Suspect some underlying interstitial lung disease . Correlate to exclude interstitial edema.
[2017-07-15] MEDS ORDERED: CEFDINIR 300 MG CAP PO SCH ×2 (09:00)
[2017-07-15] MEDS ORDERED: SODIUM CHLORIDE 0.9% 500 ML IV ONE (13:52)
[2017-07-15] MEDS ORDERED: fentaNYL (PF) 50 MCG/ML 2 ML AMP IV ONE (14:00)
[2017-07-15] MEDS ORDERED: MIDAZOLAM 2 MG/2 ML VIAL IV ONE (14:01)
[2017-07-15] MEDS ORDERED: LIDOCAINE 2% INJ 20 MG/ML SQ ONE ×3 (14:04→14:18)
[2017-07-15] MEDS ORDERED: METOPROLOL TARTRATE 5 MG/5 ML VIAL IVP ONE (14:05)
[2017-07-15] MEDS ORDERED: NITROGLYCERIN SL TABS 0.4 MG TAB SUBLINGUAL ONE (14:05)
[2017-07-15] MEDS: LIDOCAINE 2% INJ 20 MG/ML SQ ONE ×2 (14:06→14:29)
--- NOTE | 2017-07-15 14:09 | P.HPIM ---
History of Present Illness 52-year-old female patient was admitted to [facility] was subsequently transferred here because of a partially positive stress test, patient also has gases. Reflux disease resulting in bronchitis for which patient is on dioxide: Patient is also on inhalational treatments patient was wheezing and patient was in COPD exacerbation at the other hospital. Patient is presently on prednisone patient will undergo cardiac catheterization today. Patient appears to have had acid reflux contributing to her chest pain clinically. She denied any fever , chills, nausea, vomiting. Her respiratory exam showed improved wheezing. Review of Systems REVIEW OF SYSTEMS: CONSTITUTIONAL: No fever, no malaise, no fatigue. HEENT: No recent visual problems or hearing problems. Denied any sore throat. CARDIOVASCULAR: No chest pain, orthopnea, PND, no palpitations, no syncope. PULMONARY: No shortness of breath, no cough, no hemoptysis. GASTROINTESTINAL: No diarrhea, no nausea, no vomiting, no abdominal pain. Normoactive bowel sounds. NEUROLOGICAL: No headaches, no weakness, no numbness. HEMATOLOGICAL: Denies any bleeding or petechiae. GENITOURINARY: Denies any burning micturition, frequency, or urgency. MUSCULOSKELETAL/RHEUMATOLOGICAL: Denies any joint pain, swelling, or any muscle pain. ENDOCRINE: Denies any polyuria or polydipsia. The rest of the 14-point review of systems is negative. Past Medical History Past Medical History: Asthma, COPD, GERD/Reflux, Hypertension, Osteoarthritis ( OA), Pneumonia, Skin Disorder Additional Past Medical History / Comment(s): stress test Pt recently admitted to [facility] 06/04/17 for L kidney decortication of a cyst pt stated pathology report came back clear cell renal cell carcinoma -no tx yet. She had some atelectasis post op. Bilateral adrenal masses being monitored, DVT L leg, urinary incontinence-wears depends, cardiac murmur as a teen, [place] r ear.emphysema History of Any Multi-Drug Resistant Organisms: None Reported Past Surgical History: Appendectomy, Bladder Surgery, Cholecystectomy, Hernia Repair, Hysterectomy, Tonsillectomy, Tubal Ligation Additional Past Surgical History / Comment(s): 06/04/17 cyst on left kidney removed, L kidney cyst aspiration, bilateral inguinal hernia repairs, bladder sling, bile duct surgery, lt breast bx-neg-clip in place, colonoscopy/polyps removed, uterus and cervix removed but still has ovaries and fallopian tubes.skin bx lt shoulder neg Past Anesthesia/Blood Transfusion Reactions: No Reported Reaction Smoking Status: Former smoker - Past Family History Mother Family Medical History: Cancer, Congestive Heart Failure (CHF), Sleep Apnea/CPAP /BIPAP Additional Family Medical History / Comment(s): Mother had breast cancer. She from CHF at the age of 55 yrs. Father Family Medical History: Diabetes Mellitus Additional Family Medical History / Comment(s): Father from diabetic complications at the age of 60 yrs. He had brittle bone disease. Brother(s) Family Medical History: Deep Vein Thrombosis (DVT) Medications and Allergies Home Medications Medication Instructions Recorded Confirmed Type Budesonide-Formot 160-4.5 Mcg 2 puff INHALATION RT-BID 08/05/14 07/14/17 History [Symbicort 160-4.5 Mcg Inhaler] Loratadine [Claritin] 10 mg PO HS 08/05/14 07/14/17 History Atorvastatin [Lipitor] 20 mg PO DAILY 11/06/16 07/14/17 History Furosemide [Lasix] 20 mg PO DAILY 11/06/16 07/14/17 History Isosorbide Mononitrate ER [Imdur] 30 mg PO DAILY PRN 11/06/16 07/14/17 History Metoprolol Tartrate [Lopressor] 25 mg PO BID 05/30/17 07/14/17 History Acetaminophen Tab [Tylenol] 1,000 mg PO Q6HR PRN 06/11/17 07/14/17 History Docusate [Colace] 100 mg PO DAILY 06/11/17 07/14/17 History traMADol HCL [Ultram] 50 mg PO Q6HR PRN 06/11/17 07/14/17 History Cefuroxime Axetil [Ceftin] 500 mg PO BID #14 tab 06/18/17 07/14/17 Rx Famotidine [Pepcid] 20 mg PO BID #30 tablet 06/18/17 07/14/17 Rx Ipratropium-Albuterol Nebulize 3 ml INHALATION RT-Q4H PRN #0 neb 06/18/17 Rx [Duoneb 0.5 mg-3 mg/3 ml Soln] Albuterol Inhaler [Ventolin Hfa 1 - 2 puff INHALATION RT-Q6H PRN 07/14/17 History Inhaler] Multivitamins, Thera [Multivitamin 1 tab PO DAILY@1200 07/14/17 07/14/17 History (formulary)] Umeclidinium [place] [Incruse 1 puff INHALATION RT-DAILY 07/14/17 07/14/17 History Ellipta] predniSONE See Taper PO DIRECTED 07/14/17 07/14/17 History Allergies Allergy/AdvReac Type Severity Reaction Status Date / Time alprazolam [From Xanax] Allergy Anaphylaxis Verified 06/11/17 11:29 aspirin Allergy Rash/Hives Verified 06/11/17 11:29 azithromycin Allergy Rapid Verified 06/11/17 11:29 Heart Rate bupropion HCl [From Zyban] Allergy Rash/Hives Verified 06/11/17 11:29 codeine Allergy Anaphylaxis Verified 06/11/17 11:29 hydrocodone [From [place]] Allergy Rash/Hives Verified 06/11/17 11:29 Latex, Natural Rubber Allergy Rash/Hives, Verified 06/11/17 11:29 throat swelling levofloxacin [From Levaquin] Allergy Anaphylaxis Verified 06/11/17 11:29 Penicillins Allergy Rash/Hives Verified 06/11/17 11:29 Physical Exam Vitals: Vital Signs Temp Pulse Pulse Resp BP Pulse Ox 07/15/17 12:00 97.5 F L 96 99 18 141/93 96 07/15/17 11:45 96 07/15/17 08:13 92 07/15/17 08:00 98.0 F 97 18 151/98 98 07/15/17 07:55 88 07/15/17 03:59 97.0 F L 98 18 141/84 98 07/15/17 03:16 99 07/15/17 03:06 92 07/15/17 00:00 97.6 F 109 H 18 150/95 96 07/14/17 21:15 97.7 F 109 H 18 145/83 97 Intake and Output 07/14/17 07/15/17 07/15/17 22:59 06:59 14:59 Intake Total 0 Balance 0 Intake: Oral 0 Other: Voiding Method Toilet Toilet Diaper Diaper Incontinent Incontinent # Voids 1 1 1 Weight 113 kg 105.3 kg PHYSICAL EXAMINATION: GENERAL: The patient is alert and oriented x3, not in any acute distress. Well developed, well nourished. HEENT: Pupils are round and equally reacting to light. EOMI. No scleral icterus. No conjunctival pallor. Normocephalic, atraumatic. No pharyngeal erythema. No thyromegaly. CARDIOVASCULAR: S1 and S2 present. No murmurs, rubs, or gallops. PULMONARY: Chest is clear to auscultation, no wheezing or crackles. ABDOMEN: Soft, nontender, nondistended, normoactive bowel sounds. No palpable organomegaly. MUSCULOSKELETAL: No joint swelling or deformity. EXTREMITIES: No cyanosis, clubbing, or pedal edema. NEUROLOGICAL: Gross neurological examination did not reveal any focal deficits. SKIN: No rashes. Results CBC & Chem 7: 07/15/17 05:26 07/15/17 05:26 Labs: Abnormal Lab Results - Last 24 Hours (Table) 07/15/17 07/15/17 Range/Units 05:26 05:26 RBC 3.77 L (3.80-5.40) m/uL Hgb 10.8 L (11.4-16.0) gm/dL Carbon Dioxide 21 L (22-30) mmol/L BUN 6 L (7-17) mg/dL Glucose 112 H (74-99) mg/dL Thrombosis Risk Factor Assmnt - Choose All That Apply Any of the Below Risk Factors Present?: Yes Each Factor Represents 1 point: Abnormal pulmonary function (COPD), Age 41-60 years, Obesity (BMI >25), Swollen legs (current) Other Risk Factors: Yes Each Risk Factor Represents 2 Points: Malignancy Each Risk Factor Represents 3 Points: History of DVT/PE Other congenital or acquired thrombophilia - If yes, enter type in comment: No Thrombosis Risk Factor Assessment Total Risk Factor Score: 9 Thrombosis Risk Factor Assessment Level: High Risk Assessment and Plan Plan: #1 chest pain: Positive stresses because of which patient is undergoing cardiac catheterization. #2 gastroesophageal reflux disease #3 bronchitis and possible COPD exacerbation Which patient is on systemic steroids and inhalational treatments. #4 hypertension #5 osteoarthritis Patient will undergo cardiac catheterization continue with dicyclomine inhalational treatments.
[2017-07-15] MEDS ORDERED: RX INFO: IV CONTRAST WAS GIVEN 1 EACH MISC MISCELLANE PRN (14:44)
--- NOTE | 2017-07-15 17:04 | CC ---
CARDIAC CATHETERIZATION REPORT Mrs. Kwon is a 52-year-old female, who was admitted to the hospital with symptoms suggestive of unstable angina syndrome. Patient underwent Lexiscan Cardiolite study which showed evidence of anterior wall ischemia. In view of that, the patient was transferred over here for cardiac catheterization. PROCEDURE: Right groin was prepped and draped in the usual manner. The patient's right femoral pulse was very deep and after a few attempts, the right femoral artery was entered using Seldinger technique. The artery was quite medial and a #6-[place] sheath was placed in. Selective coronary angiography was then performed in multiple projections and the left ventricular pressures were obtained. The patient tolerated the procedure well. Sheath was removed and good hemostasis was achieved with the use of Angio-Seal. HEMODYNAMICS: The left ventricular end-diastolic pressure is 24 mmHg prior to angiography. No gradient is noted across the aortic valve. SELECTIVE CORONARY ANGIOGRAPHY: Left main coronary artery is short and patent. LAD is a good caliber blood vessel and gives rise to a good size diagonal branch. LAD and its branches are normal. Circumflex coronary artery is a dominant in distribution and gives rise to the PLV and PDA branches. Circumflex coronary artery and its branches are normal. There is a high obtuse marginal branch or intermediate branch which is normal. Right coronary artery is small nondominant. It is normal. FINAL IMPRESSION: This study reveals normal coronary arteries. Left ventricular end-diastolic pressure is mildly elevated. RECOMMENDATIONS: Continue medical treatment. MMCASIL / IJN: [id number] /
[2017-07-16] MEDS: traMADol 50 MG TAB PO PRN ×2 (05:30→11:45)
[2017-07-16] MEDS: IPRATROPIUM-ALBUTEROL 3 ML NEB INHALATION SCH ×3 (08:05→16:52)
[2017-07-16] MEDS: METOPROLOL TARTRATE 25 MG TAB PO SCH (08:12)
[2017-07-16] MEDS: predniSONE 20 MG TAB PO SCH (08:12)
[2017-07-16] MEDS: DOXYCYCLINE 50 MG CAP PO SCH (08:12)
[2017-07-16] MEDS: CLOPIDOGREL 75 MG TAB PO SCH (08:13)
[2017-07-16] MEDS: ATORVASTATIN 20 MG TAB PO SCH (08:13)
[2017-07-16 11:47] VITALS: RESP 16; TEMP 97.3
--- NOTE | 2017-07-16 11:53 | P.PN ---
Subjective Progress Note Date: 07/16/17 Principal diagnosis: Chest pain This is a 52-year-old female who presented to [facility] with symptoms of chest discomfort. She underwent a Lexiscan stress test which revealed evidence of anterior wall ischemia and for this reason she was transferred here to undergo cardiac catheterization. Cardiac catheterization was performed yesterday by Dr. VC Leal, and revealed normal coronary arteries. Left ventricular end-diastolic pressure was mildly elevated. Medical therapy advised. Patient was seen and examined this morning, she was complaining of significant sharp pains in her groin area. Her groin was examined, no evidence of any hematoma, no bruit, no ecchymosis. She also states that she had an episode of dizziness when getting up to the bathroom this morning. No ectopy noted on the monitor. I did ask the nurse to check for orthostatics which were negative. Blood pressure this morning 134/84 with a heart rate in the 80s. From cardiology's perspective, patient may be able to be discharged home today. We will make her a follow-up appointment to see Dr. VC ramirez anderson in the office post discharge. Objective - Vital Signs Vital signs: Vital Signs Temp 97.2 F L 07/16/17 08:00 Pulse 84 07/16/17 11:40 Resp 18 07/16/17 08:00 BP 147/89 07/16/17 08:00 Pulse Ox 98 07/16/17 08:00 Intake & Output 07/15/17 07/16/17 07/16/17 18:59 06:59 18:59 Intake Total 100 825 180 Balance 100 825 180 Weight 106.7 kg Intake: IV 100 Intake, IV Titration 225 Amount Sodium Chloride 0.9% 1, 225 000 ml @ 75 mls/hr IV . [id number] [facility] Rx#:[id number] Oral 0 600 180 Other: Voiding Method Toilet Toilet Toilet Diaper Diaper Diaper Incontinent Incontinent Incontinent # Voids 1 1 # Bowel Movements 1 - Exam PHYSICAL EXAMINATION: HEENT: Head is atraumatic, normocephalic. Pupils equal, round. Neck is supple. There is no elevated jugular venous pressure. HEART EXAMINATION: Heart S1, S2 normal. No murmur or gallop heard. CHEST EXAMINATION: Lungs are clear to auscultation and precussion. No chest wall tenderness is noted on palpation or with deep breathing. ABDOMEN: Soft, obese, nontender. Bowel sounds are heard. No organomegaly noted. EXTREMITIES: Doppler to 1+ peripheral pulses with no evidence of peripheral edema and no calf tenderness noted. Right groin soft, no hematoma, no bruit, no ecchymosis. NEUROLOGIC patient is awake, alert and oriented -3. . - Labs CBC & Chem 7: 07/15/17 05:26 07/15/17 05:26 Assessment and Plan Plan: Assessment and plan #1 status post cardiac catheterization which revealed normal coronary arteries #2 positive stress test in the anterior region. #3 history of DVT #4 hypertension #5 history of DVT #6 bilateral adrenal masses being followed as an outpatient per the patient #7 hyperlipidemia #8 asthma Plan From cardiology's perspective, patient may be able to be discharged home today. We will make her a follow-up appointment in the office with Dr. VC Leal post discharge. DNP note has been reviewed, I agree with a documented findings and plan of care. Patient was seen and examined.
[2017-07-16 12:08] VITALS: BP 148/86
[2017-07-16] MEDS: SODIUM CHLORIDE 0.9% 1,000 ML IV SCH (13:07)
--- NOTE | 2017-07-16 15:27 | P.DS ---
Providers Date of admission: 07/14/17 21:13 Attending physician: America Martell Consults: 07/14/17 22:24 Consult Physician Routine Consulting Provider: [facility] Consult Reason/Comments: chest pain Do you want consulting provider notified?: Yes, Notify in am Primary care physician: Shawna Jimenez [facility] Course: Patient underwent Cardiac catheterization did not show any significant coronary occlusive disease. Patient has COPD exacerbation which I believe is secondary to gastroesophageal reflux disease related bronchitis and bronchospasm patient will be discharged on dicyclomine prednisone patient is complaining of pain in the cardiac catheterization site area patient will be examined before discharge and will prescribe her [place] for that. PHYSICAL EXAMINATION: GENERAL: The patient is alert and oriented x3, not in any acute distress. Well developed, well nourished. HEENT: Pupils are round and equally reacting to light. EOMI. No scleral icterus. No conjunctival pallor. Normocephalic, atraumatic. No pharyngeal erythema. No thyromegaly. CARDIOVASCULAR: S1 and S2 present. No murmurs, rubs, or gallops. PULMONARY: She does have expiratory wheezing on exam no crackles were appreciated ABDOMEN: Soft, nontender, nondistended, normoactive bowel sounds. No palpable organomegaly. MUSCULOSKELETAL: No joint swelling or deformity. EXTREMITIES: No cyanosis, clubbing, or pedal edema. NEUROLOGICAL: Gross neurological examination did not reveal any focal deficits. SKIN: No rashes. #1 chest pain: Positive stresses because of which patient is underwent cardiac catheterization. #2 gastroesophageal reflux disease #3 bronchitis and possible COPD exacerbation Which patient is on systemic steroids and inhalational treatments. #4 hypertension #5 osteoarthritis Plan - Discharge Summary Discharge Rx Participant: No New Discharge Prescriptions: New Clopidogrel [Plavix] 75 mg PO DAILY #30 tab Nitroglycerin Sl Tabs [Nitrostat] 0.4 mg SUBLINGUAL Q5M PRN #25 tab PRN Reason: Chest Pain Doxycycline [Vibramycin] 100 mg PO BID #10 cap HYDROcodone/APAP 7.5-325MG [[place] 7.5-325] 1 tab PO Q4H PRN #20 tab PRN Reason: Pain Omeprazole [PriLOSEC] 40 mg PO AC-BRKFST #30 capsule. predniSONE 10 mg PO DAILY #30 tab Continue Loratadine [Claritin] 10 mg PO HS Budesonide-Formot 160-4.5 Mcg [Symbicort 160-4.5 Mcg Inhaler] 2 puff INHALATION RT-BID Furosemide [Lasix] 20 mg PO DAILY Atorvastatin [Lipitor] 20 mg PO DAILY Metoprolol Tartrate [Lopressor] 25 mg PO BID traMADol HCL [Ultram] 50 mg PO Q6HR PRN PRN Reason: Pain Docusate [Colace] 100 mg PO DAILY Acetaminophen Tab [Tylenol] 1,000 mg PO Q6HR PRN PRN Reason: Fever And/ Or Pain Ipratropium-Albuterol Nebulize [Duoneb 0.5 mg-3 mg/3 ml Soln] 3 ml INHALATION RT-Q4H PRN #0 neb PRN Reason: shortness of breath Famotidine [Pepcid] 20 mg PO BID #30 tablet Umeclidinium [place] [Incruse Ellipta] 1 puff INHALATION RT-DAILY Albuterol Inhaler [Ventolin Hfa Inhaler] 1 - 2 puff INHALATION RT-Q6H PRN PRN Reason: Shortness Of Breath Multivitamins, Thera [Multivitamin (formulary)] 1 tab PO DAILY@1200 Isosorbide Mononitrate ER [Imdur] 30 mg PO DAILY PRN #30 tab.er.24h PRN Reason: Per Protocol Discontinued Cefuroxime Axetil [Ceftin] 500 mg PO BID #14 tab predniSONE See Taper PO DIRECTED Discharge Medication List Budesonide-Formot 160-4.5 Mcg [Symbicort 160-4.5 Mcg Inhaler] 2 puff INHALATION RT-BID 08/05/14 [History] Loratadine [Claritin] 10 mg PO HS 08/05/14 [History] Atorvastatin [Lipitor] 20 mg PO DAILY 11/06/16 [History] Furosemide [Lasix] 20 mg PO DAILY 11/06/16 [History] Metoprolol Tartrate [Lopressor] 25 mg PO BID 05/30/17 [History] Acetaminophen Tab [Tylenol] 1,000 mg PO Q6HR PRN 06/11/17 [History] Docusate [Colace] 100 mg PO DAILY 06/11/17 [History] traMADol HCL [Ultram] 50 mg PO Q6HR PRN 06/11/17 [History] Famotidine [Pepcid] 20 mg PO BID #30 tablet 06/18/17 [Rx] Ipratropium-Albuterol Nebulize [Duoneb 0.5 mg-3 mg/3 ml Soln] 3 ml INHALATION RT -Q4H PRN #0 neb 06/18/17 [Rx] Albuterol Inhaler [Ventolin Hfa Inhaler] 1 - 2 puff INHALATION RT-Q6H PRN [History] Multivitamins, Thera [Multivitamin (formulary)] 1 tab PO DAILY@1200 07/14/17 [ History] Umeclidinium [place] [Incruse Ellipta] 1 puff INHALATION RT-DAILY 07/14/17 [ History] Clopidogrel [Plavix] 75 mg PO DAILY #30 tab 07/16/17 [Rx] Doxycycline [Vibramycin] 100 mg PO BID #10 cap 07/16/17 [Rx] HYDROcodone/APAP 7.5-325MG [[place] 7.5-325] 1 tab PO Q4H PRN #20 tab 07/16/17 [Rx ] Isosorbide Mononitrate ER [Imdur] 30 mg PO DAILY PRN #30 tab.er.24h 07/16/17 [Rx ] Nitroglycerin Sl Tabs [Nitrostat] 0.4 mg SUBLINGUAL Q5M PRN #25 tab 07/16/17 [Rx ] Omeprazole [PriLOSEC] 40 mg PO AC-BRKFST #30 capsule.dr 07/16/17 [Rx] predniSONE 10 mg PO DAILY #30 tab 07/16/17 [Rx] Follow up Appointment(s)/Referral(s): Florinda Matos MD [Primary Care Provider] - 3 Days [facility], [NON-STAFF] - Sakina Leal MD [STAFF PHYSICIAN] - 07/21/17 11:15 am Patient Instructions/Handouts: *Surgery [facility] - After Heart Catheterization - Workforce Management Consultant Instructions, Left Heart Catheterization (DC), Heart Healthy Diet (DC) Discharge Disposition: HOME WITH HOME HEALTH SERVICES
[2017-07-16 17:02] VITALS: PULSE 84
== END 2017-07-16 17:40 | disposition home health service (06) | DRG 192 ==
LOC: 6SEL 21:13
PROVIDERS: ADMIT Internal Medicine; ATTEND Internal Medicine
PROC: 4A023N7 Measurement of Cardiac Sampling and Pressure, Left Heart, Percutaneous Approach (ICD-10-PCS; principal; 2017-07-14)
PROC: B2111ZZ Fluoroscopy of Multiple Coronary Arteries using Low Osmolar Contrast (ICD-10-PCS; 2017-07-14)
DX: R07.9 Chest pain, unspecified (principal); J44.1 Chronic obstructive pulmonary disease with (acute) exacerbation; I10 Essential (primary) hypertension; K21.9 Gastro-esophageal reflux disease without esophagitis; M19.90 Unspecified osteoarthritis, unspecified site; E78.5 Hyperlipidemia, unspecified; H91.90 Unspecified hearing loss, unspecified ear; R32 Unspecified urinary incontinence; E27.9 Disorder of adrenal gland, unspecified; Z79.51 Long term (current) use of inhaled steroids; Z79.899 Other long term (current) drug therapy; Z80.3 Family history of malignant neoplasm of breast; Z82.49 Family history of ischemic heart disease and other diseases of the circulatory system; Z83.3 Family history of diabetes mellitus; Z85.528 Personal history of other malignant neoplasm of kidney; Z87.891 Personal history of nicotine dependence; Z88.6 Allergy status to analgesic agent; Z88.1 Allergy status to other antibiotic agents; Z88.0 Allergy status to penicillin; Z88.8 Allergy status to other drugs, medicaments and biological substances; Z86.718 Personal history of other venous thrombosis and embolism; Z90.710 Acquired absence of both cervix and uterus; Z90.49 Acquired absence of other specified parts of digestive tract; Z87.19 Personal history of other diseases of the digestive system; Z90.89 Acquired absence of other organs
CPT/HCPCS: 71020; 80048; 83036; 85025; 93458; 94640

== ENCOUNTER 2017-11-10 16:58 | Emergency (ER) | payer OTHER ==
[2017-11-10 17:12] VITALS: RESP 18
[2017-11-10] MEDS ORDERED: SODIUM CHLORIDE 0.9% 500 ML IV STA (17:48)
[2017-11-10] MEDS ORDERED: diphenhydrAMINE 50 MG/ML 1 ML VIAL IVP STA (17:48)
[2017-11-10] MEDS ORDERED: FAMOTIDINE 20 MG/2 ML VIAL IV STA (17:48)
[2017-11-10] MEDS ORDERED: methylPREDNISolone SOD SUCCI 125 MG/2 ML VIAL IV STA (17:48)
[2017-11-10] MEDS ORDERED: SODIUM CHLORIDE 0.9% 1,000 ML IV STA (17:48)
[2017-11-10 18:00] LABS: Basophils % (A) 0 %; Eosinophils # (A) 0.2 k/uL (0-0.7); Eosinophils % (A) 3 %; HCT 34.1 % (34.0-46.0); Lymphocytes # (A) 0.8 k/uL (1.0-4.8); Lymphocytes % (A) 14 %; MCH 27.3 pg (25.0-35.0); MCHC 32.4 g/dL (31.0-37.0); MCV 84.2 fL (80.0-100.0); Mean Platelet Volume 7.2; Monocytes # (A) 0.2 k/uL (0-1.0); Monocytes % (A) 3 %; Neutrophils # (A) 4.6 k/uL (1.3-7.7); Neutrophils % (A) 78 %; Platelet Count 265 k/uL (150-450); RBC 4.05 m/uL (3.80-5.40); RDW 13.5 % (11.5-15.5); WBC 5.9 k/uL (3.8-10.6)
[2017-11-10 18:13] LABS: ALT 74 U/L (9-52); AST 50 U/L (14-36); Albumin 3.8 g/dL (3.5-5.0); Alkaline Phosphatase 96 U/L (38-126); Anion Gap 16 mmol/L; Blood Urea Nitrogen 6 mg/dL (7-17); Calcium 9.2 mg/dL (8.4-10.2); Carbon Dioxide 22 mmol/L (22-30); Chloride 102 mmol/L (98-107); Glucose 130 mg/dL (74-99); Magnesium 1.8 mg/dL (1.6-2.3); Potassium 3.5 mmol/L (3.5-5.1); Sodium 140 mmol/L (137-145); Total Bilirubin 0.4 mg/dL (0.2-1.3); Total Protein 6.8 g/dL (6.3-8.2)
[2017-11-10 18:22] LABS: Creatine Kinase 31 U/L (30-135)
[2017-11-10 18:34] LABS: Creatine Kinase MB 0.3 ng/mL (0.0-2.4); Troponin I <0.012 ng/mL (0.000-0.034)
[2017-11-10 18:42] LABS: D-Dimer 0.74 mg/L FEU (<0.60); INR 1.1 (<1.2); Partial Thromboplastin Time 22.9 sec (22.0-30.0); Prothrombin Time 10.3 sec (9.0-12.0)
[2017-11-10] MEDS ORDERED: RX INFO: IV CONTRAST WAS GIVEN 1 EACH MISC MISCELLANE PRN (19:06)
--- NOTE | 2017-11-10 19:34 | XR ---
EXAMINATION TYPE: XR chest 2V DATE OF EXAM: 11/10/2017 COMPARISON: 07/15/2017 HISTORY: Chest pain TECHNIQUE: Frontal and lateral views of the chest are obtained. FINDINGS: There is some coarsening of interstitial markings and suboptimal inspiration. There is no heart failure. Heart size is normal. Bony thorax is intact. IMPRESSION: Suboptimal inspiration. Increased interstitial markings similar to old exam and could re late to combined fibrosis and subsegmental atelectasis. No heart failure.
--- NOTE | 2017-11-10 20:05 | CT ---
EXAMINATION TYPE: CT chest angio for PE DATE OF EXAM: 11/10/2017 COMPARISON: 06/11/2017 HISTORY: Chest and back pressure, shortness of breath, dizziness, nausea and headache. Possible medic ation reaction. CT DLP: 480.9 mGycm Automated exposure control for dose reduction was used. CONTRAST: CT Chest for pulmonary embolism performed with with IV Contrast, patient injected with 85 mL of Omnip aque 350. FINDINGS: There are 3-D post processed images. The lungs are clear of consolidation. There is no evidence of a pulmonary mass. There is mild pulmona ry emphysema. There is linear density in the right middle lobe and lingula left upper lobe. There is no pleural effusion. There is no pericardial effusion. There is no evidence of aortic aneurysm or dis section. I see no filling defects in the pulmonary arteries. There is no mediastinal adenopathy. Ther e are a few bronchial lymph nodes that measure up to 1 cm. I see no bony destructive process. IMPRESSION: No evidence of pulmonary embolism. Mild atelectasis and scarring in the right middle lobe and lingula left upper lobe. Pulmonary emphysema. Lungs appear not significantly different than old exam.
[2017-11-10 20:23] VITALS: TEMP 98.3
[2017-11-10] MEDS ORDERED: METOPROLOL TARTRATE 50 MG TAB PO STA (21:02)
--- NOTE | 2017-11-10 21:14 | ED ---
General Adult HPI - General Chief complaint: Allergic Reaction Stated complaint: SOB, Faisal Allergic Reaction Time Seen by Provider: 11/10/17 17:42 Source: patient Mode of arrival: wheelchair Limitations: no limitations - History of Present Illness Initial comments: He was then now [facility] from November 02 of November 07 she was put on now Cardizem cd she took it for 3-4 days now she develops a rash around her ankles legs she seen her family doctor today family doctor advised come to the ER she has no shortness of breath she has no swelling in the throat but she is complaining about the chest pain and said it hurts when she takes a deep breath denies any fever no chills she is not coughing up any phlegm no symptoms of TIA or CVA - Related Data Home Medications Medication Instructions Recorded Confirmed Budesonide-Formot 160-4.5 Mcg 2 puff INHALATION RT-BID 08/05/14 11/10/17 [Symbicort 160-4.5 Mcg Inhaler] Loratadine [Claritin] 10 mg PO HS 08/05/14 11/10/17 Atorvastatin [Lipitor] 20 mg PO DAILY 11/06/16 11/10/17 Furosemide [Lasix] 20 mg PO DAILY 11/06/16 11/10/17 Acetaminophen Tab [Tylenol] 1,000 mg PO Q6HR PRN 06/11/17 11/10/17 Docusate [Colace] 100 mg PO DAILY 06/11/17 11/10/17 Albuterol Inhaler [Ventolin Hfa 1 - 2 puff INHALATION RT-Q6H PRN 07/14/17 Inhaler] Multivitamins, Thera [Multivitamin 1 tab PO DAILY@1200 07/14/17 11/10/17 (formulary)] Baclofen [Lioresal] 10 mg PO HS 11/10/17 11/10/17 Diltiazem Cd [Cardizem Cd] 360 mg PO DAILY 11/10/17 11/10/17 Isosorbide Mononitrate ER [Imdur] 30 mg PO DAILY 11/10/17 11/10/17 Previous Rx's Medication Instructions Recorded Ipratropium-Albuterol Nebulize 3 ml INHALATION RT-Q4H PRN #0 neb 06/18/17 [Duoneb 0.5 mg-3 mg/3 ml Soln] Clopidogrel [Plavix] 75 mg PO DAILY #30 tab 07/16/17 Nitroglycerin Sl Tabs [Nitrostat] 0.4 mg SUBLINGUAL Q5M PRN #25 tab 07/16/17 Metoprolol Tartrate [Lopressor] 100 mg PO BID #30 tablet 11/10/17 Ranitidine HCl [Zantac] 150 mg PO BID #10 tab 11/10/17 predniSONE 50 mg PO DAILY #5 tab 11/10/17 Allergies Allergy/AdvReac Type Severity Reaction Status Date / Time alprazolam [From Xanax] Allergy Anaphylaxis Verified 11/10/17 18:10 aspirin Allergy Rash/Hives Verified 11/10/17 18:10 azithromycin Allergy Rapid Verified 11/10/17 18:10 Heart Rate bupropion HCl [From Zyban] Allergy Rash/Hives Verified 11/10/17 18:10 codeine Allergy Anaphylaxis Verified 11/10/17 18:10 hydrocodone [From [place]] Allergy Rash/Hives Verified 11/10/17 18:10 Latex, Natural Rubber Allergy Rash/Hives, Verified 11/10/17 18:10 throat swelling levofloxacin [From Levaquin] Allergy Anaphylaxis Verified 11/10/17 18:10 Penicillins Allergy Rash/Hives Verified 11/10/17 18:10 Review of Systems ROS Statement: Those systems with pertinent positive or pertinent negative responses have been documented in the HPI. ROS Other: All systems not noted in ROS Statement are negative. 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 She had some atelectasis post op. Bilateral adrenal masses being monitored, DVT L leg, urinary incontinence-wears depends, cardiac murmur as a teen, [place] r ear.emphysema History of Any Multi-Drug Resistant Organisms: None Reported Past Surgical History: Appendectomy, Bladder Surgery, Cholecystectomy, Hernia Repair, Hysterectomy, Tonsillectomy, Tubal Ligation Additional Past Surgical History / Comment(s): 06/04/17 cyst on left kidney removed, L kidney cyst aspiration, bilateral inguinal hernia repairs, bladder sling, bile duct surgery, lt breast bx-neg-clip in place, colonoscopy/polyps removed, uterus and cervix removed but still has ovaries and fallopian tubes.skin bx lt shoulder neg Past Anesthesia/Blood Transfusion Reactions: No Reported Reaction Past Psychological History: No Psychological Hx Reported Smoking Status: Former smoker - Past Family History Mother Family Medical History: Cancer, Congestive Heart Failure (CHF), Sleep Apnea/CPAP /BIPAP Additional Family Medical History / Comment(s): Mother had breast cancer. She from CHF at the age of 55 yrs. Father Family Medical History: Diabetes Mellitus Additional Family Medical History / Comment(s): Father from diabetic complications at the age of 60 yrs. He had brittle bone disease. Brother(s) Family Medical History: Deep Vein Thrombosis (DVT) General Exam - General Exam Comments Initial Comments: General: The patient is awake and alert, in no distress, and does not appear acutely ill. Skin: Skin is warm and dry and no rashes or lesions are noted. Notice some rash on her both legs is below the signs of slight ALLERGIC reaction Eye: Pupils are equal, round and reactive to light, extra-ocular movements are intact; there is normal conjunctiva bilaterally. Ears, nose, mouth and throat: There are moist mucous membranes and no oral lesions. Neck: The neck is supple, there is no tenderness or JVD. Cardiovascular: There is a regular rate and rhythm. No murmur, rub or gallop is appreciated. Respiratory: To auscultation bilateral, good air exchange bilaterally Gastrointestinal: Soft, non-distended, non-tender abdomen without masses or organomegaly noted. There is no rebound or guarding present. Bowel sounds are unremarkable. Back: There is no tenderness to palpation in the midline. There is no obvious deformity. Musculoskeletal: Normal ROM, no tenderness, There is no pedal edema. There is no calf tenderness or swelling. No cords were appreciated. Neurological: CN II-XII intact, Cranial nerves III through XII are intact. There are no obvious motor or sensory deficits. Coordination appears grossly intact. Speech is normal. Psychiatric: Cooperative, appropriate mood & affect, normal judgment. Limitations: no limitations Course Vital Signs 11/10/17 11/10/17 17:10 20:22 Temperature 98.0 F 98.3 F Pulse Rate 115 H 102 H Respiratory 18 18 Rate Blood Pressure 166/87 163/85 O2 Sat by Pulse 98 97 Oximetry Considering her chest pain we did an EKG which is unremarkable CBC, troponin, comp his metabolic panel, d-dimer were done D dimer was elevated, he was followed up with this EKG of the chest PE study is negative and was getting given metoprolol 50 mg now she will discontinue the Cardizem and she be gone home on now 100 mg of metoprolol twice daily she does have appointment with the Dr. Sellers the manipulative therapy specialist next week She is advised to come back if symptoms get worse EKG Findings - EKG Comments: EKG Findings:: EKG is sinus tachycardia heart rate is 1 or 3 ventricular rate is 1 or 3 MO interval is 146 QRS duration is 82 QT/QTc is 350/468 review cc EKG revealed no ST elevation or ST depression Medical Decision Making - Lab Data Result diagrams: 11/10/17 17:46 11/10/17 17:46 Lab Results 11/10/17 11/10/17 11/10/17 Range/Units 17:46 17:46 17:46 WBC 5.9 (3.8-10.6) k/uL RBC 4.05 (3.80-5.40) m/uL Hgb 11.0 L (11.4-16.0) gm/dL Hct 34.1 (34.0-46.0) % MCV 84.2 (80.0-100.0) fL MCH 27.3 (25.0-35.0) pg MCHC 32.4 (31.0-37.0) g/dL RDW 13.5 (11.5-15.5) % Plt Count 265 (150-450) k/uL Neutrophils % 78 % Lymphocytes % 14 % Monocytes % 3 % Eosinophils % 3 % Basophils % 0 % Neutrophils # 4.6 (1.3-7.7) k/uL Lymphocytes # 0.8 L (1.0-4.8) k/uL Monocytes # 0.2 (0-1.0) k/uL Eosinophils # 0.2 (0-0.7) k/uL Basophils # 0.0 (0-0.2) k/uL PT (9.0-12.0) sec INR (<1.2) APTT (22.0-30.0) sec D-Dimer (<0.60) mg/L FEU Sodium 140 (137-145) mmol/L Potassium 3.5 (3.5-5.1) mmol/L Chloride 102 (98-107) mmol/L Carbon Dioxide 22 (22-30) mmol/L Anion Gap 16 mmol/L BUN 6 L (7-17) mg/dL Creatinine 0.58 (0.52-1.04) mg/dL Est GFR (MDRD) Af Amer >60 (>60 ml/min/1.73 sqM) Est GFR (MDRD) Non-Af >60 (>60 ml/min/1.73 sqM) Glucose 130 H (74-99) mg/dL Calcium 9.2 (8.4-10.2) mg/dL Magnesium 1.8 (1.6-2.3) mg/dL Total Bilirubin 0.4 (0.2-1.3) mg/dL AST 50 H (14-36) U/L ALT 74 H (9-52) U/L Alkaline Phosphatase 96 (38-126) U/L Total Creatine Kinase 31 (30-135) U/L CK-MB (CK-2) 0.3 (0.0-2.4) ng/mL CK-MB (CK-2) Rel Index 1.0 Troponin I <0.012 (0.000-0.034) ng/mL Total Protein 6.8 (6.3-8.2) g/dL Albumin 3.8 (3.5-5.0) g/dL 11/10/17 Range/Units 18:20 WBC (3.8-10.6) k/uL RBC (3.80-5.40) m/uL Hgb (11.4-16.0) gm/dL Hct (34.0-46.0) % MCV (80.0-100.0) fL MCH (25.0-35.0) pg MCHC (31.0-37.0) g/dL RDW (11.5-15.5) % Plt Count (150-450) k/uL Neutrophils % % Lymphocytes % % Monocytes % % Eosinophils % % Basophils % % Neutrophils # (1.3-7.7) k/uL Lymphocytes # (1.0-4.8) k/uL Monocytes # (0-1.0) k/uL Eosinophils # (0-0.7) k/uL Basophils # (0-0.2) k/uL PT 10.3 (9.0-12.0) sec INR 1.1 (<1.2) APTT 22.9 (22.0-30.0) sec D-Dimer 0.74 H (<0.60) mg/L FEU Sodium (137-145) mmol/L Potassium (3.5-5.1) mmol/L Chloride (98-107) mmol/L Carbon Dioxide (22-30) mmol/L Anion Gap mmol/L BUN (7-17) mg/dL Creatinine (0.52-1.04) mg/dL Est GFR (MDRD) Af Amer (>60 ml/min/1.73 sqM) Est GFR (MDRD) Non-Af (>60 ml/min/1.73 sqM) Glucose (74-99) mg/dL Calcium (8.4-10.2) mg/dL Magnesium (1.6-2.3) mg/dL Total Bilirubin (0.2-1.3) mg/dL AST (14-36) U/L ALT (9-52) U/L Alkaline Phosphatase (38-126) U/L Total Creatine Kinase (30-135) U/L CK-MB (CK-2) (0.0-2.4) ng/mL CK-MB (CK-2) Rel Index Troponin I (0.000-0.034) ng/mL Total Protein (6.3-8.2) g/dL Albumin (3.5-5.0) g/dL Disposition Clinical Impression: Chest pain, Pleuritic chest pain, Allergic reaction Disposition: HOME SELF-CARE Condition: Good Prescriptions: Metoprolol Tartrate [Lopressor] 100 mg PO BID #30 tablet predniSONE 50 mg PO DAILY #5 tab Ranitidine HCl [Zantac] 150 mg PO BID #10 tab Referrals: Florinda Matos MD [Primary Care Provider] - 1-2 days
[2017-11-10 21:48] VITALS: BP 157/87; PULSE 105
== END 2017-11-10 21:47 | disposition home or self-care (01) ==
LOC: EC 16:58
DX: R07.1 Chest pain on breathing (principal); T46.1X5A Adverse effect of calcium-channel blockers, initial encounter; J44.9 Chronic obstructive pulmonary disease, unspecified; K21.9 Gastro-esophageal reflux disease without esophagitis; M19.90 Unspecified osteoarthritis, unspecified site; Z87.01 Personal history of pneumonia (recurrent); Z88.0 Allergy status to penicillin; Z88.1 Allergy status to other antibiotic agents; Z88.5 Allergy status to narcotic agent; Z88.6 Allergy status to analgesic agent; Z88.8 Allergy status to other drugs, medicaments and biological substances; Z91.040 Latex allergy status; Z79.51 Long term (current) use of inhaled steroids; Z79.899 Other long term (current) drug therapy; Z87.891 Personal history of nicotine dependence
CPT/HCPCS: 99284; 96374; 96375 ×2; 96361 ×4; 36415; 93005; 85379; 80053; 82550; 82553; 83735; 84484; 85025; 85610; 85730; 71046; 71275; J1200; J2930; Q9967

== ENCOUNTER 2017-12-28 14:06 | Observation (INO) | payer OTHER ==
[2017-12-28] MEDS ORDERED: NITROGLYCERIN OINT 1 INCH/GM PACKET TOPICAL STA (14:20)
--- NOTE | 2017-12-28 14:27 | ED ---
General Adult HPI - General Chief complaint: Chest Pain Stated complaint: Chest Pain Time Seen by Provider: 12/28/17 14:09 Source: patient, EMS, RN notes reviewed Mode of arrival: ambulatory Limitations: no limitations - History of Present Illness Initial comments: Patient is a pleasant 52-year-old female presenting to the emergency department with complaints of chest discomfort. Onset of symptoms was an hour or 2 ago. Symptoms have near resolved with nitroglycerin by EMS. Discomfort is described as pressure. There is some radiation towards the back. Patient did have associated dyspnea, nausea, and sweating. No history of similar symptoms previously. - Related Data Home Medications Medication Instructions Recorded Confirmed Budesonide-Formot 160-4.5 Mcg 2 puff INHALATION RT-BID 08/05/14 12/28/17 [Symbicort 160-4.5 Mcg Inhaler] Loratadine [Claritin] 10 mg PO HS 08/05/14 12/28/17 Atorvastatin [Lipitor] 20 mg PO DAILY 11/06/16 12/28/17 Furosemide [Lasix] 20 mg PO DAILY 11/06/16 12/28/17 Albuterol Inhaler [Ventolin Hfa 2 puff INHALATION RT-Q6H PRN 07/14/17 12/28/17 Inhaler] Multivitamins, Thera [Multivitamin 1 tab PO DAILY@1200 07/14/17 12/28/17 (formulary)] Baclofen [Lioresal] 10 mg PO HS 11/10/17 12/28/17 Isosorbide Mononitrate ER [Imdur] 30 mg PO DAILY 11/10/17 12/28/17 Previous Rx's Medication Instructions Recorded Ipratropium-Albuterol Nebulize 3 ml INHALATION RT-Q4H PRN #0 neb 06/18/17 [Duoneb 0.5 mg-3 mg/3 ml Soln] Clopidogrel [Plavix] 75 mg PO DAILY #30 tab 07/16/17 Metoprolol Tartrate [Lopressor] 100 mg PO BID #30 tablet 11/10/17 Allergies Allergy/AdvReac Type Severity Reaction Status Date / Time alprazolam [From Xanax] Allergy Anaphylaxis Verified 12/28/17 15:35 aspirin Allergy Rash/Hives Verified 12/28/17 15:35 azithromycin Allergy Rapid Verified 12/28/17 15:35 Heart Rate bupropion HCl [From Zyban] Allergy Rash/Hives Verified 12/28/17 15:35 codeine Allergy Anaphylaxis Verified 12/28/17 15:35 diltiazem [From Cardizem] Allergy Anaphylaxis Verified 12/28/17 15:35 hydrocodone [From [place]] Allergy Rash/Hives Verified 12/28/17 15:35 Latex, Natural Rubber Allergy Rash/Hives, Verified 12/28/17 15:35 throat swelling levofloxacin [From Levaquin] Allergy Anaphylaxis Verified 12/28/17 15:35 Penicillins Allergy Rash/Hives Verified 12/28/17 15:35 Review of Systems ROS Statement: Those systems with pertinent positive or pertinent negative responses have been documented in the HPI. ROS Other: All systems not noted in ROS Statement are negative. Constitutional: Denies: fever Eyes: Denies: eye pain ENT: Denies: ear pain Respiratory: Reports: dyspnea. Denies: cough Cardiovascular: Reports: chest pain Endocrine: Denies: fatigue Gastrointestinal: Reports: nausea. Denies: abdominal pain Genitourinary: Denies: dysuria Musculoskeletal: Denies: back pain Skin: Denies: rash Neurological: Denies: weakness Past Medical History Past Medical History: Asthma, COPD, GERD/Reflux, Hypertension, Osteoarthritis ( OA), Pneumonia, Skin Disorder Additional Past Medical History / Comment(s): stress test Pt recently admitted to [facility] 06/04/17 for L kidney decortication of a cyst pt stated pathology report came back clear cell renal cell carcinoma -no tx yet. She had some atelectasis post op. Bilateral adrenal masses being monitored, DVT L leg, urinary incontinence-wears depends, cardiac murmur as a teen, [place] ear.emphysema History of Any Multi-Drug Resistant Organisms: None Reported Past Surgical History: Appendectomy, Bladder Surgery, Cholecystectomy, Hernia Repair, Hysterectomy, Tonsillectomy, Tubal Ligation Additional Past Surgical History / Comment(s): 06/04/17 cyst on left kidney removed, L kidney cyst aspiration, bilateral inguinal hernia repairs, bladder sling, bile duct surgery, lt breast bx-neg-clip in place, colonoscopy/polyps removed, uterus and cervix removed but still has ovaries and fallopian tubes.skin bx lt shoulder neg Past Anesthesia/Blood Transfusion Reactions: No Reported Reaction Past Psychological History: No Psychological Hx Reported Smoking Status: Former smoker - Past Family History Mother Family Medical History: Cancer, Congestive Heart Failure (CHF), Sleep Apnea/CPAP /BIPAP Additional Family Medical History / Comment(s): Mother had breast cancer. She from CHF at the age of 55 yrs. Father Family Medical History: Diabetes Mellitus Additional Family Medical History / Comment(s): Father from diabetic complications at the age of 60 yrs. He had brittle bone disease. Brother(s) Family Medical History: Deep Vein Thrombosis (DVT) General Exam Limitations: no limitations General appearance: alert, in no apparent distress Head exam: Present: atraumatic Eye exam: Present: normal appearance, PERRL ENT exam: Present: normal oropharynx Neck exam: Present: normal inspection Respiratory exam: Present: normal lung sounds bilaterally Cardiovascular Exam: Present: regular rate, normal rhythm Expanded Peripheral pulses: 2+: Radial (R), Radial (L), Posterior Tibialis (R), Posterior Tibialis (L) GI/Abdominal exam: Present: soft. Absent: tenderness Extremities exam: Present: normal inspection. Absent: pedal edema, calf tenderness Neurological exam: Present: alert Psychiatric exam: Present: normal affect, normal mood Skin exam: Present: normal color Course Vital Signs 12/28/17 14:13 Temperature 98.6 F Pulse Rate 102 H Respiratory 18 Rate Blood Pressure 143/76 O2 Sat by Pulse 97 Oximetry EKG Findings - EKG Comments: EKG Findings:: Normal sinus rhythm 93. NH 138. QRS 76. QT 344. QTC 427. Normal axis. Normal QRS. No acute ST change. Medical Decision Making - Medical Decision Making Patient reevaluated and resting comfortably in bed. Patient states her discomfort is starting to return. Patient updated on results and plan. Case was discussed in detail with Dr. Campos, who will admit for Dr. Browning. - Lab Data Result diagrams: 12/28/17 14:36 12/28/17 14:36 Lab Results 12/28/17 12/28/17 12/28/17 Range/Units 14:36 14:36 14:36 WBC 6.5 (3.8-10.6) k/uL RBC 4.04 (3.80-5.40) m/uL Hgb 11.6 (11.4-16.0) gm/dL Hct 33.8 L (34.0-46.0) % MCV 83.7 (80.0-100.0) fL MCH 28.7 (25.0-35.0) pg MCHC 34.2 (31.0-37.0) g/dL RDW 14.1 (11.5-15.5) % Plt Count 307 (150-450) k/uL Neutrophils % 72 % Lymphocytes % 21 % Monocytes % 4 % Eosinophils % 1 % Basophils % 0 % Neutrophils # 4.6 (1.3-7.7) k/uL Lymphocytes # 1.3 (1.0-4.8) k/uL Monocytes # 0.3 (0-1.0) k/uL Eosinophils # 0.1 (0-0.7) k/uL Basophils # 0.0 (0-0.2) k/uL PT (9.0-12.0) sec INR (<1.2) APTT (22.0-30.0) sec Sodium 141 (137-145) mmol/L Potassium 3.6 (3.5-5.1) mmol/L Chloride 106 (98-107) mmol/L Carbon Dioxide 22 (22-30) mmol/L Anion Gap 13 mmol/L BUN 7 (7-17) mg/dL Creatinine 0.61 (0.52-1.04) mg/dL Est GFR (CKD-EPI)AfAm >90 (>60 ml/min/1.73 sqM) Est GFR (CKD-EPI)NonAf >90 (>60 ml/min/1.73 sqM) Glucose 103 H (74-99) mg/dL Calcium 9.3 (8.4-10.2) mg/dL Magnesium 1.9 (1.6-2.3) mg/dL Total Bilirubin 0.2 (0.2-1.3) mg/dL AST 17 (14-36) U/L ALT 22 (9-52) U/L Alkaline Phosphatase 93 (38-126) U/L Total Creatine Kinase 57 (30-135) U/L CK-MB (CK-2) 0.4 (0.0-2.4) ng/mL CK-MB (CK-2) Rel Index 0.7 Troponin I <0.012 (0.000-0.034) ng/mL Total Protein 6.7 (6.3-8.2) g/dL Albumin 3.7 (3.5-5.0) g/dL 12/28/17 Range/Units 14:36 WBC (3.8-10.6) k/uL RBC (3.80-5.40) m/uL Hgb (11.4-16.0) gm/dL Hct (34.0-46.0) % MCV (80.0-100.0) fL MCH (25.0-35.0) pg MCHC (31.0-37.0) g/dL RDW (11.5-15.5) % Plt Count (150-450) k/uL Neutrophils % % Lymphocytes % % Monocytes % % Eosinophils % % Basophils % % Neutrophils # (1.3-7.7) k/uL Lymphocytes # (1.0-4.8) k/uL Monocytes # (0-1.0) k/uL Eosinophils # (0-0.7) k/uL Basophils # (0-0.2) k/uL PT 10.1 (9.0-12.0) sec INR 1.0 (<1.2) APTT 22.1 (22.0-30.0) sec Sodium (137-145) mmol/L Potassium (3.5-5.1) mmol/L Chloride (98-107) mmol/L Carbon Dioxide (22-30) mmol/L Anion Gap mmol/L BUN (7-17) mg/dL Creatinine (0.52-1.04) mg/dL Est GFR (CKD-EPI)AfAm (>60 ml/min/1.73 sqM) Est GFR (CKD-EPI)NonAf (>60 ml/min/1.73 sqM) Glucose (74-99) mg/dL Calcium (8.4-10.2) mg/dL Magnesium (1.6-2.3) mg/dL Total Bilirubin (0.2-1.3) mg/dL AST (14-36) U/L ALT (9-52) U/L Alkaline Phosphatase (38-126) U/L Total Creatine Kinase (30-135) U/L CK-MB (CK-2) (0.0-2.4) ng/mL CK-MB (CK-2) Rel Index Troponin I (0.000-0.034) ng/mL Total Protein (6.3-8.2) g/dL Albumin (3.5-5.0) g/dL - Radiology Data Radiology results: image reviewed (Chest x-ray shows no acute process.) Disposition Clinical Impression: Chest pain Disposition: ADMITTED IP TO THIS HOSP Referrals: Florinda Matos MD [Primary Care Provider] - 1-2 days Decision Time: 15:46
[2017-12-28 14:46] LABS: Basophils % (A) 0 %; Eosinophils # (A) 0.1 k/uL (0-0.7); Eosinophils % (A) 1 %; HCT 33.8 % (34.0-46.0); HGB 11.6 gm/dL (11.4-16.0); Lymphocytes # (A) 1.3 k/uL (1.0-4.8); Lymphocytes % (A) 21 %; MCH 28.7 pg (25.0-35.0); MCHC 34.2 g/dL (31.0-37.0); MCV 83.7 fL (80.0-100.0); Monocytes # (A) 0.3 k/uL (0-1.0); Monocytes % (A) 4 %; Neutrophils # (A) 4.6 k/uL (1.3-7.7); Neutrophils % (A) 72 %; Platelet Count 307 k/uL (150-450); RBC 4.04 m/uL (3.80-5.40); RDW 14.1 % (11.5-15.5); WBC 6.5 k/uL (3.8-10.6)
[2017-12-28 14:56] LABS: Partial Thromboplastin Time 22.1 sec (22.0-30.0); Prothrombin Time 10.1 sec (9.0-12.0)
--- NOTE | 2017-12-28 15:06 | XR ---
EXAMINATION TYPE: XR chest 2V DATE OF EXAM: 12/28/2017 COMPARISON: 11/10/2017 HISTORY: 52-year-old female with chest pain TECHNIQUE: PA and lateral views FINDINGS: The heart is normal size. Aorta within normal limits. There is peribronchial and interstitial densiti es are unchanged. Mild hyperinflation. No consolidation or pleural effusion. IMPRESSION: Stable interstitial changes, possible underlying COPD or chronic bronchitis/asthma. No acute change s een.
[2017-12-28 15:09] LABS: Creatine Kinase 57 U/L (30-135)
[2017-12-28 15:14] LABS: ALT 22 U/L (9-52); AST 17 U/L (14-36); Albumin 3.7 g/dL (3.5-5.0); Alkaline Phosphatase 93 U/L (38-126); Anion Gap 13 mmol/L; Blood Urea Nitrogen 7 mg/dL (7-17); Calcium 9.3 mg/dL (8.4-10.2); Carbon Dioxide 22 mmol/L (22-30); Chloride 106 mmol/L (98-107); Glucose 103 mg/dL (74-99); Magnesium 1.9 mg/dL (1.6-2.3); Potassium 3.6 mmol/L (3.5-5.1); Sodium 141 mmol/L (137-145); Total Bilirubin 0.2 mg/dL (0.2-1.3); Total Protein 6.7 g/dL (6.3-8.2)
[2017-12-28 15:21] LABS: Creatine Kinase MB 0.4 ng/mL (0.0-2.4); Troponin I <0.012 ng/mL (0.000-0.034)
[2017-12-28] MEDS ORDERED: NITROGLYCERIN SL TABS 0.4 MG TAB SUBLINGUAL STA (15:44)
[2017-12-28] MEDS ORDERED: MORPHINE SULFATE 2 MG/ML SYRINGE IVP STA (15:44)
[2017-12-28] MEDS ORDERED: NITROGLYCERIN SL TABS 0.4 MG TAB SUBLINGUAL PRN (15:46)
[2017-12-28] MEDS ORDERED: ALBUTEROL NEBULIZED 2.5 MG/3 ML INHALATION PRN (16:21)
[2017-12-28] MEDS: IPRATROPIUM-ALBUTEROL 3 ML NEB INHALATION PRN (16:39)
[2017-12-28 17:30] LABS: Amylase 42 U/L (30-110); Lipase 56 U/L (23-300)
[2017-12-28 18:32] VITALS: BMI 41.4
[2017-12-28] MEDS: SYMBICORT 160-4.5 MCG INHALER INHALATION SCH (20:17)
[2017-12-28] MEDS ORDERED: LORATADINE 10 MG TAB PO SCH (21:00)
[2017-12-28] MEDS ORDERED: BACLOFEN 10 MG TAB PO SCH (21:00)
[2017-12-28] MEDS ORDERED: METOPROLOL TARTRATE 50 MG TAB PO SCH (21:00)
[2017-12-28] MEDS: PANTOPRAZOLE 40 MG TABLET PO SCH (21:01)
[2017-12-28] MEDS: NITROGLYCERIN OINT 1 INCH/GM PACKET TOPICAL SCH ×2 (21:05→22:21)
[2017-12-28 21:16] LABS: Creatine Kinase 55 U/L (30-135)
[2017-12-28 21:29] LABS: Creatine Kinase MB 0.5 ng/mL (0.0-2.4); Troponin I <0.012 ng/mL (0.000-0.034)
--- NOTE | 2017-12-29 00:41 | P.HPIM ---
History of Present Illness H&P Date: 12/28/17 Chief Complaint: Chest pain Patient is a 52-year-old female with a known history of hypertension, COPD/ asthma, GERD and history of uterus and cervical cancer status post surgical resection, recent left kidney decortication with pathology showing clear cell renal cell carcinoma, adrenal mass and multiple medical problems including morbid obesity came to ER with complaints of chest pain mid- lower retrosternal and radiated to the back. Last about 10-20 minutes. Patient felt funny feeling with racing up heart and cold sweats. Denied have some shortness of breath, nausea. No vomiting. Patient was given sublingual nitro by EMS which seems to relieve her symptoms as per patient. Patient says that she had cardiac catheterization with nonobstructive coronaries sometime around Halloween time last year. No stent was placed at the time. Patient says that she supposed to get stress test and is being scheduled. Patient denied any fever or chills. Does complain of cough with green sputum production. Patient does have sick contacts at home with tested positive for flu. No nausea vomiting or abdominal pain. No diarrhea or dysuria. Patient says that her legs are swollen left greater than right. EKG normal sinus rhythm Chest x-ray showed Stable interstitial changes possible underlying COPD, chronic bronchitis/ asthma. No acute changes seen D-dimer not elevated LFTs and lites, CBC within normal limits. Amylase and lipase is not elevated. Patient is ALLERGIC to aspirin. Review of Systems Constitutional: Patient denies any fever or chills . No generalized weakness or weight loss. Abdomen: Patient denied nausea vomiting and diarrhea and abdominal pain. Cardiovascular: No complaints of chest pain. Left lower the swelling more than right Respiratory: Cough with sputum production and shortness of breath Neurologic: Patient denied any numbness or tingling headache. Musculoskeletal: Patient denies any complaints of joint swelling or deformity. Skin: Negative Psychiatric: Negative Endocrine: No heat or cold intolerance. No recent weight gain. Genitourinary: No dysuria or hematuria. All other 14 point ROS negative except the above Past Medical History Past Medical History: Asthma, COPD, GERD/Reflux, Hypertension, Osteoarthritis ( OA), Pneumonia, Skin Disorder Additional Past Medical History / Comment(s): stress test Pt recently admitted to [facility] 06/04/17 for L kidney decortication of a cyst pt stated pathology report came back clear cell renal cell carcinoma -no tx yet. She had some atelectasis post op. Bilateral adrenal masses being monitored, DVT L leg, urinary incontinence-wears depends, cardiac murmur as a teen, [place] ear.emphysema History of Any Multi-Drug Resistant Organisms: None Reported Past Surgical History: Appendectomy, Bladder Surgery, Cholecystectomy, Hernia Repair, Hysterectomy, Tonsillectomy, Tubal Ligation Additional Past Surgical History / Comment(s): 06/04/17 cyst on left kidney removed, L kidney cyst aspiration, bilateral inguinal hernia repairs, bladder sling, bile duct surgery, lt breast bx-neg-clip in place, colonoscopy/polyps removed, uterus and cervix removed but still has ovaries and fallopian tubes.skin bx lt shoulder neg Past Anesthesia/Blood Transfusion Reactions: No Reported Reaction Past Psychological History: No Psychological Hx Reported Smoking Status: Former smoker - Past Family History Mother Family Medical History: Cancer, Congestive Heart Failure (CHF), Sleep Apnea/CPAP /BIPAP Additional Family Medical History / Comment(s): Mother had breast cancer. She from CHF at the age of 55 yrs. Father Family Medical History: Diabetes Mellitus Additional Family Medical History / Comment(s): Father from diabetic complications at the age of 60 yrs. He had brittle bone disease. Brother(s) Family Medical History: Deep Vein Thrombosis (DVT) Medications and Allergies Home Medications Medication Instructions Recorded Confirmed Type Budesonide-Formot 160-4.5 Mcg 2 puff INHALATION RT-BID 08/05/14 12/28/17 History [Symbicort 160-4.5 Mcg Inhaler] Loratadine [Claritin] 10 mg PO HS 08/05/14 12/28/17 History Atorvastatin [Lipitor] 20 mg PO DAILY 11/06/16 12/28/17 History Furosemide [Lasix] 20 mg PO DAILY 11/06/16 12/28/17 History Ipratropium-Albuterol Nebulize 3 ml INHALATION RT-Q4H PRN #0 neb 06/18/17 Rx [Duoneb 0.5 mg-3 mg/3 ml Soln] Albuterol Inhaler [Ventolin Hfa 2 puff INHALATION RT-Q6H PRN 07/14/17 12/28/17 History Inhaler] Multivitamins, Thera [Multivitamin 1 tab PO DAILY@1200 10/30/17 04/15/18 History (formulary)] Clopidogrel [Plavix] 75 mg PO DAILY #30 tab 07/16/17 12/28/17 Rx Baclofen [Lioresal] 10 mg PO HS 11/10/17 12/28/17 History Isosorbide Mononitrate ER [Imdur] 30 mg PO DAILY 11/10/17 12/28/17 History Metoprolol Tartrate [Lopressor] 100 mg PO BID #30 tablet 11/10/17 12/28/17 Rx Allergies Allergy/AdvReac Type Severity Reaction Status Date / Time almond oil Allergy Severe Anaphylaxis Verified 12/28/17 18:37 alprazolam [From Xanax] Allergy Anaphylaxis Verified 12/28/17 15:35 aspirin Allergy Rash/Hives Verified 12/28/17 15:35 azithromycin Allergy Rapid Verified 12/28/17 15:35 Heart Rate bupropion HCl [From Zyban] Allergy Rash/Hives Verified 12/28/17 15:35 codeine Allergy Anaphylaxis Verified 12/28/17 15:35 diltiazem [From Cardizem] Allergy Anaphylaxis Verified 12/28/17 15:35 hydrocodone [From [place]] Allergy Rash/Hives Verified 12/28/17 15:35 Latex, Natural Rubber Allergy Rash/Hives, Verified 12/28/17 15:35 throat swelling levofloxacin [From Levaquin] Allergy Anaphylaxis Verified 12/28/17 15:35 Penicillins Allergy Rash/Hives Verified 12/28/17 15:35 Physical Exam Vitals: Vital Signs Temp Pulse Pulse Resp BP Pulse Ox 12/28/17 16:06 98.0 F 96 18 155/78 98 12/28/17 15:47 98 18 150/77 98 12/28/17 14:13 98.6 F 102 H 18 143/76 97 12/28/17 14:10 98 20 Intake and Output 12/28/17 12/28/17 12/28/17 06:59 14:59 22:59 Other: Weight 104.326 kg PHYSICAL EXAMINATION: Patient is lying in the bed comfortably, no acute distress, awake alert and oriented.. HEENT: Normocephalic. Neck is supple. Pupils reactive. Nostrils clear. Oral cavity is moist. Ears reveal no drainage. Neck reveals no JVD, carotid bruits, or thyromegaly. CHEST EXAMINATION: Trachea is central. Symmetrical expansion. Bibasilar diminished air entry. Prolonged expiration. No wheezing CARDIAC: Normal S1, S2 with no gallops. No murmurs ABDOMEN: Soft. Bowel sounds normal. No organomegaly. No abdominal bruits. Extremities: Right lower extremity 1+ edema. Left lower extremity swelling 2+ with slight erythema and calf tenderness. No clubbing or cyanosis Neurologically awake, alert, oriented x3 with well-coordinated movements. No focal deficits noted Skin: No rash or skin lesions. Psychiatric: Cooperative. Nonsuicidal Musculoskeletal: No joint swelling or deformity. Normal range of motion. Results CBC & Chem 7: 12/28/17 14:36 12/28/17 14:36 Labs: Abnormal Lab Results - Last 24 Hours (Table) 12/28/17 12/28/17 Range/Units 14:36 14:36 Hct 33.8 L (34.0-46.0) % Glucose 103 H (74-99) mg/dL Thrombosis Risk Factor Assmnt - DVT/VTE Prophylaxis DVT/VTE Prophylaxis: Pharmacologic Prophylaxis ordered Assessment and Plan Assessment: Atypical chest pain. Rule out acute coronary syndrome. Possible abdominal etiology Hypertension COPD/asthma with previous history of smoking. GERD Left kidney decortication of a cyst on 06/04/2017 pathology showing clear cell renal cell carcinoma. Patient is on outpatient follow-up Bilateral adrenal masses currently being monitored History of left lower extremity DVT Urinary incontinence History of bilateral stone and cholecystectomy History of uterus and cervical cancer status post removal Leg swelling left greater than right. Duplex to DVT. Unlikely with normal d- dimer level Morbid obesity with BMI 41.4 DVT prophylaxis Plan: Patient be continued on telemetry monitoring. Troponin 2 negative. Continue the home medications and also started on Protonix. Cardiology was consulted. Further recommendations based on the clinical course. Prognosis is guarded with multiple medical problems and comorbid conditions. Time with Patient: Greater than 30
[2017-12-29 04:12] LABS: Cholesterol 139 mg/dL (<200); HDL Cholesterol 44 mg/dL (40-60); LDL Cholesterol,Calculated 72 mg/dL (0-99); Triglycerides 114 mg/dL (<150)
[2017-12-29 04:25] LABS: Creatine Kinase 53 U/L (30-135)
[2017-12-29 04:38] LABS: Creatine Kinase MB 0.6 ng/mL (0.0-2.4); Troponin I <0.012 ng/mL (0.000-0.034)
[2017-12-29] MEDS: NITROGLYCERIN OINT 1 INCH/GM PACKET TOPICAL SCH (06:03)
[2017-12-29] MEDS: SYMBICORT 160-4.5 MCG INHALER INHALATION SCH (07:46)
[2017-12-29] MEDS: IPRATROPIUM-ALBUTEROL 3 ML NEB INHALATION PRN (07:46)
--- NOTE | 2017-12-29 07:52 | US ---
EXAMINATION TYPE: US venous doppler duplex LE DATE OF EXAM: 12/29/2017 7:39 AM COMPARISON: NONE CLINICAL HISTORY: swelling. SIDE PERFORMED: Bilateral TECHNIQUE: The lower extremity deep venous system is examined utilizing real time linear array sonog mariam with graded compression, doppler sonography and color-flow sonography. VESSELS IMAGED: External Iliac Vein (EIV) Common Femoral Vein Deep Femoral Vein Greater Saphenous Vein * Femoral Vein Popliteal Vein Small Saphenous Vein * Proximal Calf Veins (* superficial vessels) Patient of large body habitus. Right Leg: Negative for DVT. Left Leg: Negative for DVT. Grayscale, color doppler, spectral doppler imaging performed of the deep veins of the lower extremiti es. There is normal flow, compressibility, vascular waveforms. IMPRESSION: No evident deep venous thrombosis at or above the knees bilaterally.
[2017-12-29] MEDS ORDERED: CLOPIDOGREL 75 MG TAB PO SCH (09:00)
[2017-12-29] MEDS ORDERED: FUROSEMIDE 20 MG TAB PO SCH (09:00)
[2017-12-29] MEDS ORDERED: ISOSORBIDE MONONITRATE ER 30 MG TAB.ER.24H PO SCH (09:00)
[2017-12-29] MEDS ORDERED: ATORVASTATIN 20 MG TAB PO SCH (09:00)
[2017-12-29] MEDS ORDERED: METOPROLOL TARTRATE 50 MG TAB PO SCH (09:00)
[2017-12-29 09:03] VITALS: RESP 16
[2017-12-29] MEDS: PANTOPRAZOLE 40 MG TABLET PO SCH (10:25)
--- NOTE | 2017-12-29 10:57 | P.CRDCN ---
History of Present Illness Consult date: 12/29/17 History of present illness: Mrs. Kwon is a pleasant 52-year-old female past medical history significant for asthma, COPD, hypertension, gastroesophageal reflux disease, former tobacco use quit 2015 and history of DVT. She also has renal carcinoma. She follows with Dr. VC Leal in the office. We have been asked to see her in consultation for complaints of chest pain. She states yesterday morning around 1100 she was sitting at the table and without warning she passed out. She said this lasted for only 2-3 seconds and she immediately started with chest pressure in the midsternal region. She had associated shortness of breath, diaphoresis, palpitations and nausea. Prior to the episode she denies any symptoms at all. The pain persisted for about 20 minutes so she decided to call EMS. She was given 2 SL nitroglyercin per EMS and then received another 2 in the ED. She has been chest pain free since admission and denies any further symptoms of syncope. She was admitted here in June 2017 with chest pain and a positive Lexiscan stress test. She underwent cardiac catheterization at that time that revealed normal coronary arteries. EKG on arrival reveals sinus mechanism with no acute ST or T-wave abnormalities. Telemetry tracings have been unremarkable. Chest xray is negative for an acute cardiopulmonary process with underlying COPD. Venous doppler negative for DVT b/l. Laboratory data reviewed, hemoglobin 11.6, platelets 307, d-dimer 0.5, potassium 3.6, magnesium 1.9, creatinine 0.6, cardiac enzymes negative 3, LDL 72. Current cardiac medications include Lopressor 100 mg twice a day, Imdur 30 mg daily, Lasix 20 mg daily, Plavix 75 mg daily and atorvastatin 20 mg daily. She has an allergy to aspirin causing hives. Most recent echocardiogram June 2017 reveals preserved left ventricular systolic function with ejection fraction 50-55%. Review of Systems At the time of my exam: CONSTITUTIONAL: Denies fever. Denies chills. EYES: Denies blurred vision. Denies vision changes. Denies eye pain. EARS, NOSE, MOUTH & THROAT: Denies headache. Denies sore throat. Denies ear pain. CARDIOVASCULAR: Denies chest pain. Denies shortness of breath. Denies orthopnea. Denies PND. Denies palpitations. RESPIRATORY: Denies cough. GASTROINTESTINAL: Denies abdominal pain. Denies diarrhea. Denies constipation. Denies nausea. Denies vomiting. MUSCULOSKELETAL: Denies myalgias. INTEGUMENTARY: Denies pruitis. Denies rash. NEUROLOGIC: Denies numbness. Denies tingling. Denies weakness. PSYCHIATRIC: Denies anxiety. Denies depression. ENDOCRINE: Denies fatigue. Denies weight change. Denies polydipsia. Denies polyurina. GENITOURINARY: Denies burning, hematuria or urgency with micturation. HEMATOLOGIC: Denies history of anemia. Denies bleeding. Past Medical History Past Medical History: Asthma, COPD, GERD/Reflux, Hypertension, Osteoarthritis ( OA), Pneumonia, Skin Disorder Additional Past Medical History / Comment(s): stress test Pt recently admitted to [facility] 06/04/17 for L kidney decortication of a cyst pt stated pathology report came back clear cell renal cell carcinoma -no tx yet. She had some atelectasis post op. Bilateral adrenal masses being monitored, DVT L leg, urinary incontinence-wears depends, cardiac murmur [place], [place]em[place] History of Any Multi-Drug Resistant Organisms: None Reported Past Surgical History: Appendectomy, Bladder Surgery, Cholecystectomy, Hernia Repair, Hysterectomy, Tonsillectomy, Tubal Ligation Additional Past Surgical History / Comment(s): 06/04/17 cyst on left kidney removed, L kidney cyst aspiration, bilateral inguinal hernia repairs, bladder sling, bile duct surgery, lt breast bx-neg-clip in place, colonoscopy/polyps removed, uterus and cervix removed but still has ovaries and fallopian tubes.skin bx lt shoulder neg Past Anesthesia/Blood Transfusion Reactions: No Reported Reaction Past Psychological History: No Psychological Hx Reported Smoking Status: Former smoker - Past Family History Mother Family Medical History: Cancer, Congestive Heart Failure (CHF), Sleep Apnea/CPAP /BIPAP Additional Family Medical History / Comment(s): Mother had breast cancer. She from CHF at the age of 55 yrs. Father Family Medical History: Diabetes Mellitus Additional Family Medical History / Comment(s): Father from diabetic complications at the age of 60 yrs. He had brittle bone disease. Brother(s) Family Medical History: Deep Vein Thrombosis (DVT) Medications and Allergies Home Medications Medication Instructions Recorded Confirmed Type Budesonide-Formot 160-4.5 Mcg 2 puff INHALATION RT-BID 08/05/14 12/28/17 History [Symbicort 160-4.5 Mcg Inhaler] Loratadine [Claritin] 10 mg PO HS 08/05/14 12/28/17 History Atorvastatin [Lipitor] 20 mg PO DAILY 11/06/16 12/28/17 History Furosemide [Lasix] 20 mg PO DAILY 11/06/16 12/28/17 History Ipratropium-Albuterol Nebulize 3 ml INHALATION RT-Q4H PRN #0 neb 06/18/17 Rx [Duoneb 0.5 mg-3 mg/3 ml Soln] Albuterol Inhaler [Ventolin Hfa 2 puff INHALATION RT-Q6H PRN 07/14/17 12/28/17 History Inhaler] Multivitamins, Thera [Multivitamin 1 tab PO DAILY@1200 07/14/17 12/28/17 History (formulary)] Clopidogrel [Plavix] 75 mg PO DAILY #30 tab 07/16/17 12/28/17 Rx Baclofen [Lioresal] 10 mg PO HS 11/10/17 12/28/17 History Isosorbide Mononitrate ER [Imdur] 30 mg PO DAILY 11/10/17 12/28/17 History Metoprolol Tartrate [Lopressor] 100 mg PO BID #30 tablet 11/10/17 12/28/17 Rx Allergies Allergy/AdvReac Type Severity Reaction Status Date / Time almond oil Allergy Severe Anaphylaxis Verified 12/28/17 18:37 alprazolam [From Xanax] Allergy Anaphylaxis Verified 12/28/17 15:35 aspirin Allergy Rash/Hives Verified 12/28/17 15:35 azithromycin Allergy Rapid Verified 12/28/17 15:35 Heart Rate bupropion HCl [From Zyban] Allergy Rash/Hives Verified 12/28/17 15:35 codeine Allergy Anaphylaxis Verified 12/28/17 15:35 diltiazem [From Cardizem] Allergy Anaphylaxis Verified 12/28/17 15:35 hydrocodone [From [place]] Allergy Rash/Hives Verified 12/28/17 15:35 Latex, Natural Rubber Allergy Rash/Hives, Verified 12/28/17 15:35 throat swelling levofloxacin [From Levaquin] Allergy Anaphylaxis Verified 12/28/17 15:35 Penicillins Allergy Rash/Hives Verified 12/28/17 15:35 Physical Exam Vitals: Vital Signs Temp Pulse Pulse Pulse Resp BP BP 12/29/17 07:56 76 12/29/17 07:46 76 18 12/29/17 04:00 97.7 F 65 18 123/64 12/28/17 23:58 62 16 12/28/17 23:34 97.8 F 67 16 145/94 12/28/17 20:00 69 18 12/28/17 19:17 98.1 F 90 16 168/97 12/28/17 16:42 80 12/28/17 16:12 97.7 F 81 16 142/80 12/28/17 16:06 98.0 F 96 18 155/78 12/28/17 15:47 98 18 150/77 12/28/17 14:13 98.6 F 102 H 18 143/76 12/28/17 14:10 98 20 Pulse Ox 12/29/17 07:56 12/29/17 07:46 12/29/17 04:00 98 12/28/17 23:58 12/28/17 23:34 96 12/28/17 20:00 12/28/17 19:17 95 12/28/17 16:42 12/28/17 16:12 99 12/28/17 16:06 98 12/28/17 15:47 98 12/28/17 14:13 97 12/28/17 14:10 Intake and Output 12/28/17 12/29/17 12/29/17 22:59 06:59 14:59 Other: # Voids 1 Weight 106.1 kg 106.1 kg Blood pressure 123/64 heart rate 65 afebrile maintaining oxygen saturation on room air GENERAL: This is a 52-year-old occasion female in no apparent distress at the time of my examination. Obese. HEENT: Head is atraumatic, normocephalic. Pupils are equal, round. Sclerae anicteric. Conjunctivae are clear. Mucous membranes of the mouth are moist. Neck is supple. There is no jugular venous distention. No carotid bruit is heard. LUNGS: Clear to auscultation no wheezes, rales or rhonchi. No chest wall tenderness is noted on palpation or with deep breathing. Diminished bilaterally. HEART: Regular rate and rhythm without murmurs, rubs or gallops. S1 and S2 heard. ABDOMEN: Soft, nontender. Bowel sounds are heard. No organomegaly noted. EXTREMITIES: No evidence of peripheral edema and no calf tenderness noted. VASCULAR: Radial and dorsalis pedis pulses palpated, no evidence of clubbing. NEUROLOGIC: Patient is awake, alert and oriented x3. Results 12/28/17 14:36 12/28/17 14:36 Cardiac Enzymes 12/28/17 12/28/17 12/28/17 Range/Units 14:36 14:36 20:34 AST 17 (14-36) U/L CK-MB (CK-2) 0.4 0.5 (0.0-2.4) ng/mL Troponin I <0.012 <0.012 (0.000-0.034) ng/mL 12/29/17 Range/Units 03:11 AST (14-36) U/L CK-MB (CK-2) 0.6 (0.0-2.4) ng/mL Troponin I <0.012 (0.000-0.034) ng/mL Coagulation 12/28/17 Range/Units 14:36 PT 10.1 (9.0-12.0) sec APTT 22.1 (22.0-30.0) sec Lipids 12/29/17 Range/Units 03:11 Triglycerides 114 (<150) mg/dL Cholesterol 139 (<200) mg/dL HDL Cholesterol 44 (40-60) mg/dL CBC 12/28/17 Range/Units 14:36 WBC 6.5 (3.8-10.6) k/uL RBC 4.04 (3.80-5.40) m/uL Hgb 11.6 (11.4-16.0) gm/dL Hct 33.8 L (34.0-46.0) % Plt Count 307 (150-450) k/uL Comprehensive Metabolic Panel 12/28/17 Range/Units 14:36 Sodium 141 (137-145) mmol/L Potassium 3.6 (3.5-5.1) mmol/L Chloride 106 (98-107) mmol/L Carbon Dioxide 22 (22-30) mmol/L BUN 7 (7-17) mg/dL Creatinine 0.61 (0.52-1.04) mg/dL Glucose 103 H (74-99) mg/dL Calcium 9.3 (8.4-10.2) mg/dL AST 17 (14-36) U/L ALT 22 (9-52) U/L Alkaline Phosphatase 93 (38-126) U/L Total Protein 6.7 (6.3-8.2) g/dL Albumin 3.7 (3.5-5.0) g/dL Current Medications Generic Name Dose Route Start Last Admin Trade Name Freq PRN Reason Stop Dose Admin Albuterol Sulfate 2.5 mg 12/28/17 16:21 Ventolin Nebulized INHALATION RT-Q6H PRN Shortness Of Breath Albuterol/Ipratropium 3 ml 12/28/17 16:21 12/29/17 07:46 Duoneb 0.5 Mg-3 Mg/3 Ml Soln INHALATION 3 ml RT-Q4H PRN Administration shortness of breath Atorvastatin Calcium 20 mg 12/29/17 09:00 Lipitor PO DAILY [facility] Baclofen 10 mg 12/28/17 21:00 12/28/17 22:23 Lioresal PO 10 mg HS GIULIA Administration Budesonide/Formoterol Fumarate 2 puff 12/28/17 20:00 12/29/17 07:46 Symbicort 160-4.5 Mcg Inhaler INHALATION 2 puff RT-BID GIULIA Administration Clopidogrel Bisulfate 75 mg 12/29/17 09:00 Plavix PO DAILY [facility] Furosemide 20 mg 12/29/17 09:00 Lasix PO DAILY [facility] Isosorbide Mononitrate 30 mg 12/29/17 09:00 Imdur PO DAILY [facility] Loratadine 10 mg 12/28/17 21:00 12/28/17 22:23 Claritin PO 10 mg HS [facility] Administration Metoprolol Tartrate 100 mg 12/28/17 21:00 12/28/17 22:23 Lopressor PO 100 mg BID GIULIA Administration Multivitamins 1 each 12/29/17 12:00 Theragran PO DAILY@1200 [facility] Nitroglycerin 1 inch 12/28/17 18:00 12/29/17 06:03 Nitro-Bid Oint TOPICAL Not Given Q6HR [facility] Nitroglycerin 0.4 mg 12/28/17 15:46 Nitrostat SUBLINGUAL Q5M PRN Chest Pain Pantoprazole Sodium 40 mg 12/28/17 17:15 12/28/17 21:01 Protonix PO 40 mg [id number] GIULIA Administration Intake and Output 12/28/17 12/29/17 12/29/17 22:59 06:59 14:59 Other: # Voids 1 Weight 106.1 kg 106.1 kg 12/28/17 14:36 12/28/17 14:36 Assessment and Plan Assessment: ASSESSMENT 1. Chest pain, atypical. Acute coronary event has been ruled out with no EKG evidence of ischemia and negative cardiac enzymes. 2. Questionable syncope. 3. Hypertension 4. COPD 5. Dyslipidemia PLAN An acute coronary event has been ruled out. She had a normal cardiac catheterization June 2017. Decreased Lopressor to 50 mg twice a day. Discontinue Plavix. Continue Lasix, atorvastatin and Imdur as was previously ordered. May consider decreasing Imdur. She is stable from a cardiac perspective. An event monitor will be mailed to her home for the next 30 days. She is to follow up with Dr. Leal once this is completed. Thank you kindly for this consultation. The above impression and plan of care have been discussed and directed by the signing physician. Alayna Rodriguez, nurse practitioner, acting as scribe for signing physician.
[2017-12-29 11:43] VITALS: BP 122/69; TEMP 98
--- NOTE | 2017-12-29 11:58 | P.DS ---
Providers Date of admission: 12/28/17 15:46 Attending physician: Jovon Campos Consults: 12/28/17 15:46 Consult Physician Urgent Consulting Provider: Kiley Nicholson Consult Reason/Comments: cp Do you want consulting provider notified?: Yes Primary care physician: Shawna Jimenez [facility] Course: Patient is a 52-year-old female with a known history of hypertension, COPD/ asthma, GERD and history of uterus and cervical cancer status post surgical resection, recent left kidney decortication with pathology showing clear cell renal cell carcinoma, adrenal mass and multiple medical problems including morbid obesity came to ER with complaints of chest pain, EKG normal sinus rhythm Chest x-ray: Stable interstitial changes possible underlying COPD, chronic bronchitis/asthma. No acute changes seen D-dimer not elevated, LFTs and lytes, CBC within normal limits.Amylase and lipase is not elevated. she has been evaluated by cardiology team while in hospital, An acute coronary event has been ruled out. She had a normal cardiac catheterization June 2017. Decreased Lopressor to 50 mg twice a day. Discontinue Plavix. Continue Lasix, atorvastatin and Imdur. An event monitor will be mailed to her home for the next 30 days. She is to follow up with Dr. Leal once this is completed. Doppler of LE is negtaive for DVT pt CP is improving from 10/10 to 4/10 , still pressure like, radiating to the back , no dyspnea, we checked blood pressure on the right side is 122/69 heart rate 65, while blood pressure on the left arm is 133/72 to heart rate 64, her chest pain is associated with tenderness on the left side below left breast, mostly its musculoskeletal pain and tenderness, ordered lidocaine topical for 3 days Patient was admitted with a problem this management plan and she verbalized understanding and acceptance Patient is a stable and can be discharged home but she needs follow-up as an outpatient Patient Condition at Discharge: Good Plan - Discharge Summary Discharge Rx Participant: No New Discharge Prescriptions: New Metoprolol Tartrate [Lopressor] 50 mg PO BID #60 tab Nitroglycerin Sl Tabs [Nitrostat] 0.4 mg SUBLINGUAL Q5M PRN tab PRN Reason: Chest Pain Ranitidine HCl 150 mg PO HS #60 tab Lidocaine 4% Cream [Lmx 4] 1 applic TOPICAL BID 5 Days #1 kit Continue Budesonide-Formot 160-4.5 Mcg [Symbicort 160-4.5 Mcg Inhaler] 2 puff INHALATION RT-BID Furosemide [Lasix] 20 mg PO DAILY Atorvastatin [Lipitor] 20 mg PO DAILY Ipratropium-Albuterol Nebulize [Duoneb 0.5 mg-3 mg/3 ml Soln] 3 ml INHALATION RT-Q4H PRN #0 neb PRN Reason: shortness of breath Albuterol Inhaler [Ventolin Hfa Inhaler] 2 puff INHALATION RT-Q6H PRN PRN Reason: Shortness Of Breath Baclofen [Lioresal] 10 mg PO HS Isosorbide Mononitrate ER [Imdur] 30 mg PO DAILY Loratadine [Claritin] 10 mg PO HS #7 tab Discontinued Multivitamins, Thera [Multivitamin (formulary)] 1 tab PO DAILY@1200 Clopidogrel [Plavix] 75 mg PO DAILY #30 tab Metoprolol Tartrate [Lopressor] 100 mg PO BID #30 tablet Discharge Medication List Budesonide-Formot 160-4.5 Mcg [Symbicort 160-4.5 Mcg Inhaler] 2 puff INHALATION RT-BID 08/05/14 [History] Atorvastatin [Lipitor] 20 mg PO DAILY 11/06/16 [History] Furosemide [Lasix] 20 mg PO DAILY 11/06/16 [History] Ipratropium-Albuterol Nebulize [Duoneb 0.5 mg-3 mg/3 ml Soln] 3 ml INHALATION RT -Q4H PRN #0 neb 06/18/17 [Rx] Albuterol Inhaler [Ventolin Hfa Inhaler] 2 puff INHALATION RT-Q6H PRN 07/14/17 [ History] Baclofen [Lioresal] 10 mg PO HS 11/10/17 [History] Isosorbide Mononitrate ER [Imdur] 30 mg PO DAILY 11/10/17 [History] Lidocaine 4% Cream [Lmx 4] 1 applic TOPICAL BID 5 Days #1 kit 12/29/17 [Rx] Loratadine [Claritin] 10 mg PO HS #7 tab 12/29/17 [Rx] Metoprolol Tartrate [Lopressor] 50 mg PO BID #60 tab 12/29/17 [Rx] Nitroglycerin Sl Tabs [Nitrostat] 0.4 mg SUBLINGUAL Q5M PRN tab 12/29/17 [Rx] Ranitidine HCl 150 mg PO HS #60 tab 12/29/17 [Rx] Follow up Appointment(s)/Referral(s): Florinda Matos MD [Primary Care Provider] - 1-2 days Sakina Leal MD [STAFF PHYSICIAN] - 4 Weeks (Event monitor will be mailed to your home with instructions this week. Appointment with Dr. Leal in 4-6 weeks. ) Discharge Disposition: HOME SELF-CARE
[2017-12-29] MEDS ORDERED: MULTIVITAMINS, THERA 1 EACH TAB PO SCH (12:00)
[2017-12-29 13:07] VITALS: PULSE 76
== END 2017-12-29 15:50 | disposition home or self-care (01) ==
LOC: EC 14:06 → 3OBS 15:46
PROVIDERS: ADMIT Internal Medicine; ATTEND Internal Medicine
DX: R07.89 Other chest pain (principal); R00.2 Palpitations; R11.0 Nausea; R61 Generalized hyperhidrosis; I10 Essential (primary) hypertension; R22.43 Localized swelling, mass and lump, lower limb, bilateral; E78.5 Hyperlipidemia, unspecified; E27.9 Disorder of adrenal gland, unspecified; R32 Unspecified urinary incontinence; J43.9 Emphysema, unspecified; K21.9 Gastro-esophageal reflux disease without esophagitis; E66.01 Morbid (severe) obesity due to excess calories; Z68.41 Body mass index [BMI] 40.0-44.9, adult; M19.90 Unspecified osteoarthritis, unspecified site; Z87.01 Personal history of pneumonia (recurrent); Z85.41 Personal history of malignant neoplasm of cervix uteri; Z85.528 Personal history of other malignant neoplasm of kidney; Z79.02 Long term (current) use of antithrombotics/antiplatelets; Z79.51 Long term (current) use of inhaled steroids; Z79.899 Other long term (current) drug therapy; Z88.6 Allergy status to analgesic agent; Z88.1 Allergy status to other antibiotic agents; Z91.040 Latex allergy status; Z88.5 Allergy status to narcotic agent; Z88.0 Allergy status to penicillin; Z91.09 Other allergy status, other than to drugs and biological substances; Z88.8 Allergy status to other drugs, medicaments and biological substances; Z87.891 Personal history of nicotine dependence; Z90.49 Acquired absence of other specified parts of digestive tract; Z82.49 Family history of ischemic heart disease and other diseases of the circulatory system; Z80.3 Family history of malignant neoplasm of breast; Z83.3 Family history of diabetes mellitus; Z84.89 Family history of other specified conditions; Z86.718 Personal history of other venous thrombosis and embolism
CPT/HCPCS: 99285 ×2; 36415; 94640 ×3; 85379; 80061; 80053; 82150; 82550 ×2; 82553 ×2; 83690; 83735; 84484 ×2; 85025; 85610; 85730; 71046; 93970; G0378 ×2

== ENCOUNTER 2018-09-28 22:17 | Inpatient (IN) | payer OTHER ==
--- NOTE | 2018-09-28 22:20 | ED ---
General Adult HPI - General Stated complaint: hypertension Time Seen by Provider: 09/28/18 22:20 - History of Present Illness Initial comments: Silva is a morbidly obese 53-year-old female who extensive past medical history as documented who presents the emergency department today via EMS for evaluation of left-sided chest pain and pressure. Patient reports she had had intermittent pain throughout the day however this evening the pain became constant, was described as a pressure under her left breast. Pain was associated with lightheadedness and shortness of breath. Patient reports sensation persisted for approximately 15 minutes prior to EMS arrival and has been persistent since that time. Patient reports no known history of coronary artery disease as have a history of arrhythmias in the past and has followed with cardiology in the past. She denies any recent illness - Related Data Home Medications Medication Instructions Recorded Confirmed Budesonide-Formot 160-4.5 Mcg 2 puff INHALATION RT-BID 08/05/14 09/28/18 [Symbicort 160-4.5 Mcg Inhaler] Atorvastatin [Lipitor] 20 mg PO DAILY 11/06/16 09/28/18 Furosemide [Lasix] 20 mg PO DAILY 11/06/16 09/28/18 Albuterol Inhaler [Ventolin Hfa 2 puff INHALATION RT-QID PRN 07/14/17 09/28/18 Inhaler] Baclofen [Lioresal] 10 mg PO TID 11/10/17 09/28/18 Isosorbide Mononitrate ER [Imdur] 30 mg PO DAILY 11/10/17 09/28/18 Docusate [Colace] 100 mg PO DAILY 09/28/18 09/28/18 Ipratropium-Albuterol Nebulize 3 ml INHALATION RT-TID 09/28/18 09/28/18 [Duoneb 0.5 mg-3 mg/3 ml Soln] Metoprolol Tartrate [Lopressor] 50 mg PO HS 09/28/18 09/28/18 Metoprolol Tartrate [Lopressor] 100 mg PO QAM 09/28/18 09/28/18 Previous Rx's Medication Instructions Recorded Loratadine [Claritin] 10 mg PO HS #7 tab 12/29/17 Nitroglycerin Sl Tabs [Nitrostat] 0.4 mg SUBLINGUAL Q5M PRN tab 12/29/17 Allergies Allergy/AdvReac Type Severity Reaction Status Date / Time almond oil Allergy Severe Anaphylaxis Verified 09/28/18 22:51 alprazolam [From Xanax] Allergy Anaphylaxis Verified 09/28/18 22:51 aspirin Allergy Rash/Hives Verified 09/28/18 22:51 azithromycin Allergy Rapid Verified 09/28/18 22:51 Heart Rate bupropion HCl [From Zyban] Allergy Rash/Hives Verified 09/28/18 22:51 coconut Allergy Rash/Hives Verified 09/28/18 22:51 codeine Allergy Anaphylaxis Verified 09/28/18 22:51 diltiazem [From Cardizem] Allergy Anaphylaxis Verified 09/28/18 22:51 grapefruit Allergy Rash/Hives Verified 09/28/18 22:51 hydrocodone [From [place]] Allergy Rash/Hives Verified 09/28/18 22:51 Latex, Natural Rubber Allergy Rash/Hives, Verified 09/28/18 22:51 throat swelling levofloxacin [From Levaquin] Allergy Anaphylaxis Verified 09/28/18 22:51 Penicillins Allergy Rash/Hives Verified 09/28/18 22:51 joseph Allergy Swelling Verified 09/28/18 22:51 tree nut [Pecan] Allergy Swelling Verified 09/28/18 22:51 egg AdvReac Unknown Verified 09/28/18 22:51 nadolol AdvReac Rash/Hives Verified 09/28/18 22:51 Review of Systems ROS Statement: Those systems with pertinent positive or pertinent negative responses have been documented in the HPI. ROS Other: All systems not noted in ROS Statement are negative. 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 Bilateral adrenal masses being monitored, DVT L leg, urinary incontinence-wears depends, cardiac murmur as a teen, [place] ear. Emphysema. History of Any Multi-Drug Resistant Organisms: None Reported Past Surgical History: Appendectomy, Bladder Surgery, Cholecystectomy, Hernia Repair, Hysterectomy, Tonsillectomy, Tubal Ligation Additional Past Surgical History / Comment(s): 06/04/17 cyst on left kidney removed, L kidney cyst aspiration, bilateral inguinal hernia repairs, bladder sling, bile duct surgery, lt breast bx-neg-clip in place, colonoscopy/polyps removed, uterus and cervix removed but still has ovaries and fallopian tubes.skin bx lt shoulder neg Past Anesthesia/Blood Transfusion Reactions: No Reported Reaction Past Psychological History: No Psychological Hx Reported Smoking Status: Former smoker - Past Family History Mother Family Medical History: Cancer, Congestive Heart Failure (CHF), Sleep Apnea/CPAP /BIPAP Additional Family Medical History / Comment(s): Mother had breast cancer. She from CHF at the age of 55 yrs. Father Family Medical History: Diabetes Mellitus Additional Family Medical History / Comment(s): Father from diabetic complications at the age of 60 yrs. He had brittle bone disease. Brother(s) Family Medical History: Deep Vein Thrombosis (DVT) Course Vital Signs 09/28/18 09/28/18 09/28/18 22:18 22:33 23:00 Temperature 97.7 F Pulse Rate 80 81 86 Respiratory 20 19 18 Rate Blood Pressure 153/82 153/82 139/76 O2 Sat by Pulse 97 96 97 Oximetry EKG Findings - EKG Comments: EKG Findings:: EKG obtained at 10:25 PM, rate is 77 rhythm is sinus with sinus arrhythmia there is a P-wave before each QRS complex. There is normal axis, normal intervals, AL 142, QRS 84, QTC 405. There are no acute ST elevations or depressions no evidence of acute ischemia or infarction. Medical Decision Making - Medical Decision Making The patient was seen and evaluated history was obtained from the patient and review of medical record This is a 53-year-old female with extensive past medical history who presents with left-sided chest pain Patient does report she's had a Holter monitor in the past and was told she had arrhythmia but no other known cardiac disease, scheduled to follow-up with cardiology in one month Cardiac workup was ordered EKG nonischemic no sign chest x-ray unremarkable Labs with no significant abnormalities however given the patient's comorbidities will plan to place patient in observation for evaluation by cardiology. Patient is agreeable to this. Admission orders were placed. - Lab Data Result diagrams: 09/28/18 22:55 09/28/18 22:55 Lab Results 09/28/18 09/28/18 09/28/18 Range/Units 22:55 22:55 22:55 WBC 10.4 (3.8-10.6) k/uL RBC 4.66 (3.80-5.40) m/uL Hgb 12.7 (11.4-16.0) gm/dL Hct 40.9 (34.0-46.0) % MCV 87.8 (80.0-100.0) fL MCH 27.2 (25.0-35.0) pg MCHC 31.0 (31.0-37.0) g/dL RDW 14.3 (11.5-15.5) % Plt Count 333 (150-450) k/uL Neutrophils % 74 % Lymphocytes % 19 % Monocytes % 4 % Eosinophils % 2 % Basophils % 0 % Neutrophils # 7.7 (1.3-7.7) k/uL Lymphocytes # 2.0 (1.0-4.8) k/uL Monocytes # 0.4 (0-1.0) k/uL Eosinophils # 0.2 (0-0.7) k/uL Basophils # 0.0 (0-0.2) k/uL PT (9.0-12.0) sec INR (<1.2) APTT (22.0-30.0) sec D-Dimer (<0.60) mg/L FEU Sodium 138 (137-145) mmol/L Potassium 3.9 (3.5-5.1) mmol/L Chloride 104 (98-107) mmol/L Carbon Dioxide 24 (22-30) mmol/L Anion Gap 10 mmol/L BUN 10 (7-17) mg/dL Creatinine 0.67 (0.52-1.04) mg/dL Est GFR (CKD-EPI)AfAm >90 (>60 ml/min/1.73 sqM) Est GFR (CKD-EPI)NonAf >90 (>60 ml/min/1.73 sqM) Glucose 92 (74-99) mg/dL Calcium 9.9 (8.4-10.2) mg/dL Magnesium 2.0 (1.6-2.3) mg/dL Total Bilirubin 0.3 (0.2-1.3) mg/dL AST 17 (14-36) U/L ALT 24 (9-52) U/L Alkaline Phosphatase 108 (38-126) U/L Total Creatine Kinase 65 (30-135) U/L CK-MB (CK-2) 0.9 (0.0-2.4) ng/mL CK-MB (CK-2) Rel Index 1.4 Troponin I <0.012 (0.000-0.034) ng/mL NT-Pro-B Natriuret Pep pg/mL Total Protein 7.7 (6.3-8.2) g/dL Albumin 4.4 (3.5-5.0) g/dL 09/28/18 09/28/18 Range/Units 22:55 22:55 WBC (3.8-10.6) k/uL RBC (3.80-5.40) m/uL Hgb (11.4-16.0) gm/dL Hct (34.0-46.0) % MCV (80.0-100.0) fL MCH (25.0-35.0) pg MCHC (31.0-37.0) g/dL RDW (11.5-15.5) % Plt Count (150-450) k/uL Neutrophils % % Lymphocytes % % Monocytes % % Eosinophils % % Basophils % % Neutrophils # (1.3-7.7) k/uL Lymphocytes # (1.0-4.8) k/uL Monocytes # (0-1.0) k/uL Eosinophils # (0-0.7) k/uL Basophils # (0-0.2) k/uL PT 9.7 (9.0-12.0) sec INR 0.9 (<1.2) APTT 20.7 L (22.0-30.0) sec D-Dimer 0.44 (<0.60) mg/L FEU Sodium (137-145) mmol/L Potassium (3.5-5.1) mmol/L Chloride (98-107) mmol/L Carbon Dioxide (22-30) mmol/L Anion Gap mmol/L BUN (7-17) mg/dL Creatinine (0.52-1.04) mg/dL Est GFR (CKD-EPI)AfAm (>60 ml/min/1.73 sqM) Est GFR (CKD-EPI)NonAf (>60 ml/min/1.73 sqM) Glucose (74-99) mg/dL Calcium (8.4-10.2) mg/dL Magnesium (1.6-2.3) mg/dL Total Bilirubin (0.2-1.3) mg/dL AST (14-36) U/L ALT (9-52) U/L Alkaline Phosphatase (38-126) U/L Total Creatine Kinase (30-135) U/L CK-MB (CK-2) (0.0-2.4) ng/mL CK-MB (CK-2) Rel Index Troponin I (0.000-0.034) ng/mL NT-Pro-B Natriuret Pep 100 pg/mL Total Protein (6.3-8.2) g/dL Albumin (3.5-5.0) g/dL Disposition Clinical Impression: Chest pain Disposition: ADMITTED IP TO THIS HOSP Referrals: Florinda Matos MD [Primary Care Provider] - 1-2 days
[2018-09-28 23:21] LABS: Basophils % (A) 0 %; Eosinophils # (A) 0.2 k/uL (0-0.7); Eosinophils % (A) 2 %; HCT 40.9 % (34.0-46.0); HGB 12.7 gm/dL (11.4-16.0); Lymphocytes % (A) 19 %; MCH 27.2 pg (25.0-35.0); MCV 87.8 fL (80.0-100.0); Mean Platelet Volume 6.7; Monocytes # (A) 0.4 k/uL (0-1.0); Monocytes % (A) 4 %; Neutrophils # (A) 7.7 k/uL (1.3-7.7); Neutrophils % (A) 74 %; Platelet Count 333 k/uL (150-450); RBC 4.66 m/uL (3.80-5.40); RDW 14.3 % (11.5-15.5); WBC 10.4 k/uL (3.8-10.6)
[2018-09-28 23:34] LABS: ALT 24 U/L (9-52); AST 17 U/L (14-36); Albumin 4.4 g/dL (3.5-5.0); Alkaline Phosphatase 108 U/L (38-126); Anion Gap 10 mmol/L; Blood Urea Nitrogen 10 mg/dL (7-17); Calcium 9.9 mg/dL (8.4-10.2); Carbon Dioxide 24 mmol/L (22-30); Chloride 104 mmol/L (98-107); Glucose 92 mg/dL (74-99); Potassium 3.9 mmol/L (3.5-5.1); Sodium 138 mmol/L (137-145); Total Bilirubin 0.3 mg/dL (0.2-1.3); Total Protein 7.7 g/dL (6.3-8.2)
[2018-09-28 23:45] LABS: Creatine Kinase 65 U/L (30-135)
--- NOTE | 2018-09-28 23:45 | XR ---
EXAMINATION TYPE: XR chest 2V DATE OF EXAM: 09/28/2018 COMPARISON: 12/28/2017 HISTORY: Chest pain TECHNIQUE: Frontal and lateral views of the chest are obtained. FINDINGS: There are chest leads. Heart and mediastinum are normal. There is minimal subsegmental ate lectasis in the lower lung jang. Bony thorax is intact. IMPRESSION: Minimal subsegmental atelectasis similar to old exam. Normal heart.
[2018-09-28 23:59] LABS: Creatine Kinase MB 0.9 ng/mL (0.0-2.4); D-Dimer 0.44 mg/L FEU (<0.60); INR 0.9 (<1.2); Prothrombin Time 9.7 sec (9.0-12.0); Troponin I <0.012 ng/mL (0.000-0.034)
[2018-09-29 00:19] LABS: Partial Thromboplastin Time 20.7 sec (22.0-30.0)
--- NOTE | 2018-09-29 00:21 | US ---
EXAMINATION TYPE: US venous doppler duplex LE LT DATE OF EXAM: 09/28/2018 11:54 PM COMPARISON: NONE CLINICAL HISTORY: swelling. Swelling SIDE PERFORMED: Left TECHNIQUE: The lower extremity deep venous system is examined utilizing real time linear array sonog mariam with graded compression, doppler sonography and color-flow sonography. VESSELS IMAGED: External Iliac Vein (EIV) Common Femoral Vein Deep Femoral Vein Greater Saphenous Vein * Femoral Vein Popliteal Vein Small Saphenous Vein * Proximal Calf Veins (* superficial vessels) Left Leg: Negative for DVT No evidence of DVT left leg. IMPRESSION: Normal left leg duplex venous sonogram.
[2018-09-29] MEDS ORDERED: NITROGLYCERIN SL TABS 0.4 MG TAB SUBLINGUAL PRN (01:10)
[2018-09-29] MEDS ORDERED: ALBUTEROL NEBULIZED 2.5 MG/3 ML INHALATION PRN ×2 (01:12→01:56)
[2018-09-29] MEDS ORDERED: BACLOFEN 10 MG TAB PO STA (01:52)
[2018-09-29] MEDS ORDERED: METOPROLOL TARTRATE 50 MG TAB PO STA (01:52)
[2018-09-29] MEDS ORDERED: LORATADINE 10 MG TAB PO STA (01:52)
[2018-09-29] MEDS: IPRATROPIUM-ALBUTEROL 3 ML NEB INHALATION SCH ×4 (01:58→19:37)
[2018-09-29 02:39] VITALS: BMI 42.0
[2018-09-29 05:51] LABS: Creatine Kinase 64 U/L (30-135)
[2018-09-29 06:04] LABS: Creatine Kinase MB 0.8 ng/mL (0.0-2.4); Troponin I <0.012 ng/mL (0.000-0.034)
[2018-09-29] MEDS ORDERED: LOSARTAN 25 MG TAB PO STA (07:09)
[2018-09-29] MEDS: SYMBICORT 160-4.5 MCG INHALER INHALATION SCH ×2 (07:29→19:37)
--- NOTE | 2018-09-29 08:38 | CONS ---
CONSULTATION Silva Kwon is a 53-year-old obese lady with a history of a DVT in the past. This lady sees Dr. Talya Leal in the outpatient setting and apparently about 14 months ago on July 14, 2017, this lady had a cardiac cath which revealed a left dominant system without any obstructive CAD. She has hypertension and hyperlipidemia, obesity, and history of remote DVT. She came into the hospital because she found that her blood pressure was elevated to 150/105 and then she had some squeezing discomfort in the chest and came into the hospital. Her troponins are normal. The D-dimer is unremarkable. She is resting comfortably without symptoms, but this morning again, she had a sharp pain in the chest that lasted a few seconds. The quality of the pain is atypical. She is resting comfortably without symptoms. She also had a venous Doppler of her left leg, which was unremarkable. EKG revealed a sinus mechanism without any acute changes. PAST MEDICAL HISTORY: 1. Hypertension. 2. Hypercholesterolemia. 3. Unremarkable cardiac cath in June of 2017. 4. History of some bronchial asthma. MEDICATIONS: Medications at home include metoprolol tartrate 100 mg in the morning, 50 mg in the evening, Imdur 30 mg daily, Lasix 20 mg daily, atorvastatin 20 mg daily, Ventolin inhaler, and sublingual nitroglycerin p.r.n. ALLERGIES: She is allergic to a number of medications including NADOLOL, CARDIZEM, and also CODEINE and XANAX and a number of other medications, please refer to the chart. PHYSICAL EXAMINATION: On examination, blood pressure is 118/70, pulse rate is 80 per minute regular. HEENT: Unremarkable. Fundus was not examined by me. Neck is supple. No JVD. I do not hear a carotid bruit. Heart exam reveals S1, S2 heard normally but distantly. No significant murmurs. Lungs are clear. Abdomen is soft, nontender. Lower extremities reveal diminished pulses. Trace edema. Central nervous system grossly within normal limits. EKG is unremarkable for any acute changes. Normal sinus rhythm was noted. IMPRESSION: 1. Atypical chest pain. 2. Hypertension. 3. Obesity. 4. Hypercholesterolemia. 5. Unremarkable cardiac catheterization 14 months ago. RECOMMENDATIONS: I am recommending that we increase activity, add losartan 25 mg daily for optimizing blood pressure control, increase activity and if she has no further symptoms she can be discharged and follow up with Dr. Talya Leal as scheduled. Thank you very much for the consult. MMCASIL / IJN: [id number] /
[2018-09-29] MEDS: METOPROLOL TARTRATE 50 MG TAB PO SCH ×2 (09:04→21:07)
[2018-09-29] MEDS: ISOSORBIDE MONONITRATE ER 30 MG TAB.ER.24H PO SCH (09:04)
[2018-09-29] MEDS: FUROSEMIDE 20 MG TAB PO SCH (09:04)
[2018-09-29] MEDS: ATORVASTATIN 20 MG TAB PO SCH (09:05)
[2018-09-29] MEDS: BACLOFEN 10 MG TAB PO SCH ×3 (09:05→21:06)
[2018-09-29 11:28] LABS: Creatine Kinase 64 U/L (30-135)
[2018-09-29 11:42] LABS: Creatine Kinase MB 0.8 ng/mL (0.0-2.4); Troponin I <0.012 ng/mL (0.000-0.034)
[2018-09-29] MEDS ORDERED: traMADol 50 MG TAB PO STA (13:35)
--- NOTE | 2018-09-29 13:45 | P.HPIM ---
History of Present Illness this is a pleasant 53 years old female with past medical history of asthma/COPD , GERD, hypertension, osteoarthritis, pneumonia left renal cell carcinoma in 2017. Bilateral adrenal masses. Left leg DVT. patient presents because of her high blood pressure. Patient says that yesterday she was sitting in bed she felt and well while she's going in and out of the restroom. She felt chest pain with some dyspnea and dizziness. Patient states that her chest pain was 10 /10 below her left breast nonradiating but sometimes goes to her left arm, felt squeezing in character, associated with some dyspnea and she felt a little bit dizzy with headache. Also patient complaining of from coughing with greenish phlegm for the last few days and she thinks that her sinuses infection coming back to her as there was some blood in her greenish discharge. Of note the patient has been treated with steroids and antibiotics for sinus infection about 2-3 weeks ago. on admission Vitas looks stable she has negative d-dimer at 0.44. CBC and BMP were unremarkable. She has several negative troponin. chest x-ray showing any mild subsegmental atelectasis similar to old exam with normal heart.Doppler was negative for DVT in the left leg.patient has been evaluated by logging supervisor who adjusted her blood pressure medication and recommended to increase activity and cleared her for discharge Review of Systems CONSTITUTIONAL: No fever, no malaise, no fatigue. HEENT: No recent visual problems or hearing problems. Denied any sore throat. CARDIOVASCULAR: No orthopnea, PND, no palpitations, no syncope. PULMONARY: No shortness of breath, no cough, no hemoptysis. GASTROINTESTINAL: No diarrhea, no nausea, no vomiting, no abdominal pain. Normoactive bowel sounds. NEUROLOGICAL: No headaches, no weakness, no numbness. HEMATOLOGICAL: Denies any bleeding or petechiae. GENITOURINARY: Denies any burning micturition, frequency, or urgency. MUSCULOSKELETAL/RHEUMATOLOGICAL: Denies any joint pain, swelling, or any muscle pain. ENDOCRINE: Denies any polyuria or polydipsia. Past Medical History Past Medical History: Asthma, COPD, GERD/Reflux, Hypertension, Osteoarthritis ( OA), Pneumonia, Skin Disorder Additional Past Medical History / Comment(s): admitted to [facility] 06/04/17 for L kidney decortication of a cyst pt stated pathology report 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 Bilateral adrenal masses being monitored, DVT L leg, urinary incontinence-wears depends, cardiac murmur as a teen, [place] ear. Emphysema. History of Any Multi-Drug Resistant Organisms: None Reported Past Surgical History: Adenoidectomy, Appendectomy, Bladder Surgery, Cholecystectomy, Hernia Repair, Hysterectomy, Tonsillectomy, Tubal Ligation Additional Past Surgical History / Comment(s): 06/04/17 cyst on left kidney removed, L kidney cyst aspiration, bilateral inguinal hernia repairs, bladder sling, bile duct surgery, lt breast bx-neg-clip in place, colonoscopy/polyps removed, uterus and cervix removed but still has ovaries and fallopian tubes.skin bx lt shoulder neg. heart cath 07/15/2017 Past Anesthesia/Blood Transfusion Reactions: No Reported Reaction Additional Past Anesthesia/Blood Transfusion Reaction / Comment(s): 1987- on operating table and had to resuscitate Past Psychological History: No Psychological Hx Reported Additional Psychological History / Comment(s): Pt resides with a friend. She has a nebulizer at home. She is not driving at this time due to recent surgery. She is independent. Smoking Status: Former smoker Past Alcohol Use History: None Reported Additional Past Alcohol Use History / Comment(s): Pt started smoking in 1986 and quit 04/2016. smoked 1.5 ppd Past Drug Use History: None Reported - Past Family History Mother Family Medical History: Cancer, Congestive Heart Failure (CHF), Sleep Apnea/CPAP /BIPAP Additional Family Medical History / Comment(s): Mother had breast cancer. She from CHF at the age of 55 yrs. Father Family Medical History: Cancer, Diabetes Mellitus Additional Family Medical History / Comment(s): Father from diabetic complications at the age of 60 yrs. He had brittle bone disease. Brother(s) Family Medical History: Deep Vein Thrombosis (DVT) Medications and Allergies Home Medications Medication Instructions Recorded Confirmed Type Budesonide-Formot 160-4.5 Mcg 2 puff INHALATION RT-BID 08/05/14 09/28/18 History [Symbicort 160-4.5 Mcg Inhaler] Atorvastatin [Lipitor] 20 mg PO DAILY 11/06/16 09/28/18 History Furosemide [Lasix] 20 mg PO DAILY 11/06/16 09/28/18 History Albuterol Inhaler [Ventolin Hfa 2 puff INHALATION RT-QID PRN 07/14/17 09/28/18 History Inhaler] Baclofen [Lioresal] 10 mg PO TID 11/10/17 09/28/18 History Isosorbide Mononitrate ER [Imdur] 30 mg PO DAILY 11/10/17 09/28/18 History Loratadine [Claritin] 10 mg PO HS #7 tab 12/29/17 09/28/18 Rx Nitroglycerin Sl Tabs [Nitrostat] 0.4 mg SUBLINGUAL Q5M PRN tab 12/29/17 Rx Docusate [Colace] 100 mg PO DAILY 09/28/18 09/28/18 History Ipratropium-Albuterol Nebulize 3 ml INHALATION RT-TID 09/28/18 09/28/18 History [Duoneb 0.5 mg-3 mg/3 ml Soln] Metoprolol Tartrate [Lopressor] 50 mg PO HS 09/28/18 09/28/18 History Metoprolol Tartrate [Lopressor] 100 mg PO QAM 09/28/18 09/28/18 History Allergies Allergy/AdvReac Type Severity Reaction Status Date / Time almond oil Allergy Severe Anaphylaxis Verified 09/28/18 22:51 alprazolam [From Xanax] Allergy Anaphylaxis Verified 09/28/18 22:51 aspirin Allergy Rash/Hives Verified 09/28/18 22:51 azithromycin Allergy Rapid Verified 09/28/18 22:51 Heart Rate bupropion HCl [From Zyban] Allergy Rash/Hives Verified 09/28/18 22:51 coconut Allergy Rash/Hives Verified 09/28/18 22:51 codeine Allergy Anaphylaxis Verified 09/28/18 22:51 diltiazem [From Cardizem] Allergy Anaphylaxis Verified 09/28/18 22:51 grapefruit Allergy Rash/Hives Verified 09/28/18 22:51 hydrocodone [From [place]] Allergy Rash/Hives Verified 09/28/18 22:51 Latex, Natural Rubber Allergy Rash/Hives, Verified 09/28/18 22:51 throat swelling levofloxacin [From Levaquin] Allergy Anaphylaxis Verified 09/28/18 22:51 Penicillins Allergy Rash/Hives Verified 01/14/19 22:51 joseph Allergy Swelling Verified 09/28/18 22:51 tree nut [Pecan] Allergy Swelling Verified 09/28/18 22:51 egg AdvReac Unknown Verified 09/28/18 22:51 nadolol AdvReac Rash/Hives Verified 09/28/18 22:51 Physical Exam Vitals: Vital Signs Temp Pulse Pulse Pulse Pulse Pulse Resp 09/29/18 12:55 64 09/29/18 12:50 61 09/29/18 11:45 97.4 F L 61 61 62 18 09/29/18 07:42 88 09/29/18 07:31 80 09/29/18 07:25 97.8 F 88 18 09/29/18 04:00 97.5 F L 83 15 09/29/18 02:55 67 16 09/29/18 02:07 104 H 09/29/18 02:06 98.0 F 67 16 09/29/18 01:58 100 09/29/18 00:30 105 H 16 09/28/18 23:30 09/28/18 23:00 86 18 09/28/18 22:33 81 19 09/28/18 22:18 97.7 F 80 20 BP BP BP BP BP Pulse Ox 09/29/18 12:55 09/29/18 12:50 09/29/18 11:45 140/87 157/94 99/59 94 L 09/29/18 07:42 09/29/18 07:31 09/29/18 07:25 150/68 95 09/29/18 04:00 118/72 96 09/29/18 02:55 09/29/18 02:07 09/29/18 02:06 132/85 96 09/29/18 01:58 09/29/18 00:30 145/68 97 09/28/18 23:30 131/81 09/28/18 23:00 139/76 97 09/28/18 22:33 153/82 96 09/28/18 22:18 153/82 97 Intake and Output 09/28/18 09/29/18 09/29/18 22:59 06:59 14:59 Intake Total 200 Balance 200 Intake: Oral 200 Other: Voiding Method Toilet Diaper Incontinent # Voids 2 Weight 104.326 kg 104.326 kg GENERAL: The patient is alert and oriented x3, not in any acute distress. Well developed, well nourished. -HEENT: Pupils are round and equally reacting to light. EOMI. No scleral icterus. No conjunctival pallor. Normocephalic, atraumatic. No pharyngeal erythema. No thyromegaly. left maxillary sinus tenderness Jaye on the left cheek CARDIOVASCULAR: S1 and S2 present. No murmurs, rubs, or gallops. PULMONARY: Chest is clear to auscultation, no wheezing or crackles. ABDOMEN: Soft, nontender, nondistended, normoactive bowel sounds. No palpable organomegaly. MUSCULOSKELETAL: No joint swelling or deformity. EXTREMITIES: No cyanosis, clubbing, or pedal edema. NEUROLOGICAL: Gross neurological examination did not reveal any focal deficits. SKIN: No rashes. Results CBC & Chem 7: 09/28/18 22:55 09/28/18 22:55 Labs: Abnormal Lab Results - Last 24 Hours (Table) 09/28/18 Range/Units 22:55 APTT 20.7 L (22.0-30.0) sec Thrombosis Risk Factor Assmnt - Choose All That Apply Each Factor Represents 1 point: Age 41-60 years, Obesity (BMI >25) Other Risk Factors: No Thrombosis Risk Factor Assessment Total Risk Factor Score: 2 Thrombosis Risk Factor Assessment Level: Low Risk Assessment and Plan Assessment: chest pain, logging supervisor evaluated the patient Acute sinusitis, milligrams of the left maxillary sinusitis History of COPD/asthma, with possible mild exacerbation history of GERD Essential hypertension, was uncontrolled on admission. Medication and dose adjusted History of posterior arthritis History of left renal cell carcinoma 2017 She has bilateral adrenal masses and she's follow up with chief of vital statistics and [facility]. She told me her next appointment is going to be this coming November 2018 obesity Plan: this is a pleasant 53 years old female who presents with multiple symptoms and sinusitis including chest pain and dyspnea. Cardiology evaluated the patient and cleared her for discharge. We'll call pulmonary consult. Patient she might benefit from ENT evaluation. Continue with hydration and pain management. Patient confirmed to me she is not ALLERGIC to tramadol. Antibiotic for her sinus infection and possible pulmonary elements. Labs and medication were reviewed.. Continue same treatment. Continue with symptomatic treatment. Resume home medication. Monitor lytes and vitals. DVT and GI prophylaxis. Further recommendations of the clinical course of the patient DVT prophylaxis: Subcutaneous heparin GI Prophylaxis: Pepcid PT/OT: Pending Prognosis is guarded
[2018-09-29] MEDS: DOXYCYCLINE 100 MG CAP PO SCH ×2 (14:26→21:06)
--- NOTE | 2018-09-29 16:36 | P.GSCN ---
History of Present Illness Consult date: 09/29/18 Reason for Consult: Nasal congestion for over one year Requesting physician: Monty Perera History of present illness: His is a 53-year-old white female who tells me that she's had 1 year persistent nasal congestion. In addition she has problems with sneezing, lacrimation itching all made better with use of Claritin. She does have some discolored drainage usually green. She has bilateral nasal congestion. There is a family history of ALLERGIES if she suspects she may have ALLERGIES. Her sense of smell is impaired. She used to smoke but quit in 2014 and has a over 30-pack- year history of smoking. She denies any facial pain or pressure. Denies any ocular issues. Denies any neurologic issues. Review of Systems - Constitutional Reports lethargy, Denies anorexia - EENT Ears, nose, mouth and throat: Denies ant. neck pain - Cardiovascular Denies claudication - Respiratory Denies cough - Gastrointestinal Denies change in bowel habits - Genitourinary Genitourinary: Denies dysuria Menstruation: Reports as per HPI - Musculoskeletal Denies arm numbness/tingling - Integumentary Denies boils - Neurological Denies ataxia - Psychiatric Denies anxiety - Endocrine Denies excessive thirst - Hematologic/Lymphatic Denies easy bleeding - Allergic/Immunologic Reports allergic rhinitis, Reports persistent infections, Reports seasonal allergies ( ), Reports wheezing Past Medical History Past Medical History: Asthma, COPD, GERD/Reflux, Hypertension, Osteoarthritis ( OA), Pneumonia, Skin Disorder Additional Past Medical History / Comment(s): admitted to [facility] 06/04/17 for L kidney decortication of a cyst pt stated pathology report 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 Bilateral adrenal masses being monitored, DVT L leg, urinary incontinence-wears depends, cardiac murmur as a teen, [place]. Emphysema. History of Any Multi-Drug Resistant Organisms: None Reported Past Surgical History: Adenoidectomy, Appendectomy, Bladder Surgery, Cholecystectomy, Hernia Repair, Hysterectomy, Tonsillectomy, Tubal Ligation Additional Past Surgical History / Comment(s): 06/04/17 cyst on left kidney removed, L kidney cyst aspiration, bilateral inguinal hernia repairs, bladder sling, bile duct surgery, lt breast bx-neg-clip in place, colonoscopy/polyps removed, uterus and cervix removed but still has ovaries and fallopian tubes.skin bx lt shoulder neg. heart cath 07/15/2017 Past Anesthesia/Blood Transfusion Reactions: No Reported Reaction Additional Past Anesthesia/Blood Transfusion Reaction / Comm: 1987- on operating table and 'iraj had to resuscitate Past Psychological History: No Psychological Hx Reported Additional Psychological History / Comment(s): Pt resides with a friend. She has a nebulizer at home. She is not driving at this time due to recent surgery. She is independent. Smoking Status: Former smoker Past Alcohol Use History: None Reported Additional Past Alcohol Use History / Comment(s): Pt started smoking in 1986 and quit 04/2016. smoked 1.5 ppd Past Drug Use History: None Reported - Past Family History Mother Family Medical History: Cancer, Congestive Heart Failure (CHF), Sleep Apnea/CPAP /BIPAP Additional Family Medical History / Comment(s): Mother had breast cancer. She from CHF at the age of 55 yrs. Father Family Medical History: Cancer, Diabetes Mellitus Additional Family Medical History / Comment(s): Father from diabetic complications at the age of 60 yrs. He had brittle bone disease. Brother(s) Family Medical History: Deep Vein Thrombosis (DVT) Medications and Allergies Home Medications Medication Instructions Recorded Confirmed Type Budesonide-Formot 160-4.5 Mcg 2 puff INHALATION RT-BID 08/05/14 09/28/18 History [Symbicort 160-4.5 Mcg Inhaler] Atorvastatin [Lipitor] 20 mg PO DAILY 11/06/16 09/28/18 History Furosemide [Lasix] 20 mg PO DAILY 11/06/16 09/28/18 History Albuterol Inhaler [Ventolin Hfa 2 puff INHALATION RT-QID PRN 07/14/17 09/28/18 History Inhaler] Baclofen [Lioresal] 10 mg PO TID 11/10/17 09/28/18 History Isosorbide Mononitrate ER [Imdur] 30 mg PO DAILY 11/10/17 09/28/18 History Loratadine [Claritin] 10 mg PO HS #7 tab 12/29/17 09/28/18 Rx Nitroglycerin Sl Tabs [Nitrostat] 0.4 mg SUBLINGUAL Q5M PRN tab 12/29/17 Rx Docusate [Colace] 100 mg PO DAILY 09/28/18 09/28/18 History Ipratropium-Albuterol Nebulize 3 ml INHALATION RT-TID 09/28/18 09/28/18 History [Duoneb 0.5 mg-3 mg/3 ml Soln] Metoprolol Tartrate [Lopressor] 50 mg PO HS 09/28/18 09/28/18 History Metoprolol Tartrate [Lopressor] 100 mg PO QAM 09/28/18 09/28/18 History Allergies Allergy/AdvReac Type Severity Reaction Status Date / Time almond oil Allergy Severe Anaphylaxis Verified 09/28/18 22:51 alprazolam [From Xanax] Allergy Anaphylaxis Verified 09/28/18 22:51 aspirin Allergy Rash/Hives Verified 09/28/18 22:51 azithromycin Allergy Rapid Verified 09/28/18 22:51 Heart Rate bupropion HCl [From Zyban] Allergy Rash/Hives Verified 09/28/18 22:51 coconut Allergy Rash/Hives Verified 09/28/18 22:51 codeine Allergy Anaphylaxis Verified 09/28/18 22:51 diltiazem [From Cardizem] Allergy Anaphylaxis Verified 09/28/18 22:51 grapefruit Allergy Rash/Hives Verified 09/28/18 22:51 hydrocodone [From [place]] Allergy Rash/Hives Verified 09/28/18 22:51 Latex, Natural Rubber Allergy Rash/Hives, Verified 09/28/18 22:51 throat swelling levofloxacin [From Levaquin] Allergy Anaphylaxis Verified 09/28/18 22:51 Penicillins Allergy Rash/Hives Verified 09/28/18 22:51 joseph Allergy Swelling Verified 09/28/18 22:51 tree nut [Pecan] Allergy Swelling Verified 09/28/18 22:51 egg AdvReac Unknown Verified 09/28/18 22:51 nadolol AdvReac Rash/Hives Verified 09/28/18 22:51 Surgical - Exam Osteopathic Statement: *. No significant issues noted on an osteopathic structural exam other than those noted in the History and Physical/Consult. Vital Signs Temp Pulse Resp BP Pulse Ox 97.7 F 80 20 153/82 97 09/28/18 22:18 09/28/18 22:18 09/28/18 22:18 09/28/18 22:18 09/28/18 22:18 - General well developed, well nourished, no distress, obese - Eyes PERRL, normal ocular movement - ENT Head is normocephalic the face is symmetric there's no abnormal movements is no tenderness to the sinuses are mastoids is no nodules or eruptions or parasites on scalp. Auricles are well-formed canals clear nose shows intranasal crusting mouth and throat no oral lesions are noted edentulous neck is unremarkable normal pinna, normal nares, no hearing loss - Neck no masses, no bruits, no lymphadectomy, no venous distension thyroid nodule: absent - Cardiovascular Rhythm: regular - Integumentary no rash, no growths - Neurologic normal coordination, normal sensation - Musculoskeletal normal gait - Psychiatric oriented to time, oriented to person, oriented to place, speech is normal, memory intact Results - Labs 09/28/18 22:55 09/28/18 22:55 Abnormal Lab Results - Last 24 Hours (Table) 09/28/18 Range/Units 22:55 APTT 20.7 L (22.0-30.0) sec Diabetes panel 09/28/18 Range/Units 22:55 Sodium 138 (137-145) mmol/L Potassium 3.9 (3.5-5.1) mmol/L Chloride 104 (98-107) mmol/L Carbon Dioxide 24 (22-30) mmol/L BUN 10 (7-17) mg/dL Creatinine 0.67 (0.52-1.04) mg/dL Glucose 92 (74-99) mg/dL Calcium 9.9 (8.4-10.2) mg/dL AST 17 (14-36) U/L ALT 24 (9-52) U/L Alkaline Phosphatase 108 (38-126) U/L Total Protein 7.7 (6.3-8.2) g/dL Albumin 4.4 (3.5-5.0) g/dL Calcium panel 09/28/18 Range/Units 22:55 Calcium 9.9 (8.4-10.2) mg/dL Albumin 4.4 (3.5-5.0) g/dL Pituitary panel 09/28/18 Range/Units 22:55 Sodium 138 (137-145) mmol/L Potassium 3.9 (3.5-5.1) mmol/L Chloride 104 (98-107) mmol/L Carbon Dioxide 24 (22-30) mmol/L BUN 10 (7-17) mg/dL Creatinine 0.67 (0.52-1.04) mg/dL Glucose 92 (74-99) mg/dL Calcium 9.9 (8.4-10.2) mg/dL Adrenal panel 09/28/18 Range/Units 22:55 Sodium 138 (137-145) mmol/L Potassium 3.9 (3.5-5.1) mmol/L Chloride 104 (98-107) mmol/L Carbon Dioxide 24 (22-30) mmol/L BUN 10 (7-17) mg/dL Creatinine 0.67 (0.52-1.04) mg/dL Glucose 92 (74-99) mg/dL Calcium 9.9 (8.4-10.2) mg/dL Total Bilirubin 0.3 (0.2-1.3) mg/dL AST 17 (14-36) U/L ALT 24 (9-52) U/L Alkaline Phosphatase 108 (38-126) U/L Total Protein 7.7 (6.3-8.2) g/dL Albumin 4.4 (3.5-5.0) g/dL Assessment and Plan (1) Chronic sinusitis Current Visit: Yes Status: Acute Code(s): J32.9 - CHRONIC SINUSITIS, UNSPECIFIED SNOMED Code(s): 47842292 (2) Allergic rhinitis Current Visit: Yes Status: Acute Code(s): J30.9 - ALLERGIC RHINITIS, UNSPECIFIED SNOMED Code(s): 84632753 (3) Post-nasal drainage Current Visit: Yes Status: Acute Code(s): R09.82 - POSTNASAL DRIP SNOMED Code(s): 48674416 (4) Hypertrophy of nasal turbinates Current Visit: Yes Status: Acute Code(s): J34.3 - HYPERTROPHY OF NASAL TURBINATES SNOMED Code(s): 11769110 Plan: This patient has had over one year of persistent sinonasal symptoms. Symptoms include sneezing, lacrimation, drainage and nasal obstruction. Her drainage is discolored. She denies any facial pain or pressure. She is a candidate for a trial of antibiotics and Flonase along with imaging and ALLERGY testing. She's had some blood testing for ALLERGIES and we will attempt to get those results to her medicaid eligibility specialist. In the meantime, medications will be prescribed and to be continued on an outpatient basis. Imaging the paranasal sinuses will be ordered. Time with Patient: Greater than 30
--- NOTE | 2018-09-29 17:07 | CT ---
EXAMINATION TYPE: CT sinus wo con DATE OF EXAM: 09/29/2018 COMPARISON: None HISTORY: chronic sinusitis CT DLP: 365.7 mGycm. Automated Exposure Control for Dose Reduction was Utilized. TECHNIQUE: CT scan of the sinuses is performed without contrast, axial images are obtained, coronal r eformatted images are also reviewed. FINDINGS: The right frontal sinus is completely opacified, as is the nasofrontal duct. The right ante rior/middle ethmoid sinus air cells are completely opacified. The right maxillary sinus is approximat edel 85% opacified, with opacification of both the infundibulum and hiatus semilunaris. The right sphe noid-ethmoidal recess is opacified, as are the posterior ethmoid sinus air cells and the sphenoid sin us right of midline. Right orbit unremarkable. The lamina papyracea is unremarkable. There is no right-sided cody bullosa. There is mild anterior right-sided nasal septal deviation. The left frontal sinus and nasofrontal duct are clear. The left anterior/middle/posterior ethmoid sin uses are clear. The left sphenoid sinus is clear. The left maxillary sinus has a 1.5 cm mucous retent ion cyst, but is otherwise clear, as are the left OMC and sphenoethmoidal recess. Left orbit unremark able. The middle ear cavities are clear. The mastoid sinus air cells are clear. No incidental findings. IMPRESSION: Prominent right-sided paranasal sinus inflammatory findings.
[2018-09-29] MEDS: FLUTICASONE 50MCG/SPRAY NASAL 16GM EA NOSTRIL SCH (18:25)
[2018-09-29] MEDS: SODIUM CHLORIDE 0.45% 1,000 ML IV SCH (18:52)
[2018-09-29] MEDS: traMADol 50 MG TAB PO PRN (18:54)
[2018-09-29] MEDS: CLINDAMYCIN 150 MG CAP PO SCH (21:06)
[2018-09-29] MEDS: LORATADINE 10 MG TAB PO SCH (21:06)
[2018-09-30] MEDS: traMADol 50 MG TAB PO PRN ×4 (01:16→20:07)
[2018-09-30 03:10] LABS: Cholesterol 159 mg/dL (<200); HDL Cholesterol 63 mg/dL (40-60); LDL Cholesterol,Calculated 51 mg/dL (0-99); Triglycerides 224 mg/dL (<150)
[2018-09-30] MEDS: SODIUM CHLORIDE 0.45% 1,000 ML IV SCH ×2 (05:46→16:25)
[2018-09-30] MEDS: SYMBICORT 160-4.5 MCG INHALER INHALATION SCH ×2 (07:55→19:30)
[2018-09-30] MEDS: IPRATROPIUM-ALBUTEROL 3 ML NEB INHALATION SCH ×3 (07:55→19:30)
[2018-09-30] MEDS: ATORVASTATIN 20 MG TAB PO SCH (09:16)
[2018-09-30] MEDS: FUROSEMIDE 20 MG TAB PO SCH (09:16)
[2018-09-30] MEDS: BACLOFEN 10 MG TAB PO SCH ×3 (09:17→20:07)
[2018-09-30] MEDS: ISOSORBIDE MONONITRATE ER 30 MG TAB.ER.24H PO SCH (09:17)
[2018-09-30] MEDS: CLINDAMYCIN 150 MG CAP PO SCH ×2 (09:18→20:07)
[2018-09-30] MEDS: DOXYCYCLINE 100 MG CAP PO SCH (09:18)
[2018-09-30] MEDS: METOPROLOL TARTRATE 50 MG TAB PO SCH ×2 (09:22→20:07)
[2018-09-30] MEDS: FLUTICASONE 50MCG/SPRAY NASAL 16GM EA NOSTRIL SCH (10:34)
[2018-09-30] MEDS: ONDANSETRON 4 MG/2 ML VIAL IVP PRN (10:35)
[2018-09-30] MEDS ORDERED: guaiFENesin-DM 100-10MG/5ML 10 ML CUP PO PRN (12:17)
--- NOTE | 2018-09-30 12:31 | P.PN ---
Subjective this is a pleasant 53 years old female with past medical history of asthma/COPD , GERD, hypertension, osteoarthritis, pneumonia left renal cell carcinoma in 2017. Bilateral adrenal masses. Left leg DVT. patient presents because of her high blood pressure. Patient says that yesterday she was sitting in bed she felt and well while she's going in and out of the restroom. She felt chest pain with some dyspnea and dizziness. Patient states that her chest pain was 10 /10 below her left breast nonradiating but sometimes goes to her left arm, felt squeezing in character, associated with some dyspnea and she felt a little bit dizzy with headache. Also patient complaining of from coughing with greenish phlegm for the last few days and she thinks that her sinuses infection coming back to her as there was some blood in her greenish discharge. Of note the patient has been treated with steroids and antibiotics for sinus infection about 2-3 weeks ago. on admission Vitas looks stable she has negative d-dimer at 0.44. CBC and BMP were unremarkable. She has several negative troponin. chest x-ray showing any mild subsegmental atelectasis similar to old exam with normal heart.Doppler was negative for DVT in the left leg.patient has been evaluated by culinary assistant who adjusted her blood pressure medication and recommended to increase activity and cleared her for discharge 09/30/2018 Today patient still complaining of from dizziness and headache. Patient describes the dizziness as presyncope and she says it's worse when she stands up however orthostatic was checked yesterday and were negative. She still have cough with green phlegm and nasal drip. She still have nasal congestion she sits little bit improvement in her ability to blow her nose, her chest pain is coming down from 10/10 down to 7/10 as per patient. She was still looks with shortness of breath and on examination she has wheezing, scattered but they're mild. She doesn't have bowel movement for last 1 or 2 days. ENT evaluation is appreciated patient was started on clindamycin and Flonase. DC doxycycline. Sinus CAT scan showing severe sinusitis. We'll order physical therapy evaluation today. And pulmonary consult with Dr. Weinstein who is her organic preparation analyst. We going to IV steroids, cough syrup today. Objective - Vital Signs Vital signs: Vital Signs Temp 98.3 F 09/30/18 07:40 Pulse 83 09/30/18 08:10 Resp 18 09/30/18 07:40 BP 137/90 09/30/18 07:40 Pulse Ox 100 09/30/18 07:55 Intake & Output 09/29/18 09/30/18 09/30/18 18:59 06:59 18:59 Intake Total 422 240 Balance 422 240 Intake: Oral 422 240 Other: Voiding Method Toilet Diaper Incontinent - Exam GENERAL: The patient is alert and oriented x3, not in any acute distress. Well developed, well nourished. -HEENT: Pupils are round and equally reacting to light. EOMI. No scleral icterus. No conjunctival pallor. Normocephalic, atraumatic. No pharyngeal erythema. No thyromegaly. left maxillary sinus tenderness Jaye on the left cheek CARDIOVASCULAR: S1 and S2 present. No murmurs, rubs, or gallops. PULMONARY: Chest is clear to auscultation, no wheezing or crackles. ABDOMEN: Soft, nontender, nondistended, normoactive bowel sounds. No palpable organomegaly. MUSCULOSKELETAL: No joint swelling or deformity. EXTREMITIES: No cyanosis, clubbing, or pedal edema. NEUROLOGICAL: Gross neurological examination did not reveal any focal deficits. SKIN: No rashes. Gait: Patient couldn't walk for a few steps using her cane however she needed help going back to bed due to dizziness - Labs CBC & Chem 7: 09/28/18 22:55 09/28/18 22:55 Labs: Abnormal Lab Results - Last 24 Hours (Table) 09/28/18 Range/Units 22:55 Triglycerides 224 H (<150) mg/dL HDL Cholesterol 63 H (40-60) mg/dL Assessment and Plan Assessment: chest pain, culinary assistant evaluated the patient Acute sinusitis, milligrams of the left maxillary sinusitis History of COPD/asthma, with possible mild exacerbation history of GERD Essential hypertension, was uncontrolled on admission. Medication and dose adjusted History of posterior arthritis History of left renal cell carcinoma 2017 She has bilateral adrenal masses and she's follow up with manager metal and [facility]. She told me her next appointment is going to be this coming November 2018 obesity Plan: this is a pleasant 53 years old female who presents with multiple symptoms and sinusitis including chest pain and dyspnea. Cardiology evaluated the patient and cleared her for discharge. We'll call pulmonary consult. Patient she might benefit from ENT evaluation. Continue with hydration and pain management. Patient confirmed to me she is not ALLERGIC to tramadol. Antibiotic for her sinus infection and possible pulmonary elements. Labs and medication were reviewed.. Continue same treatment. Continue with symptomatic treatment. Resume home medication. Monitor lytes and vitals. DVT and GI prophylaxis. Further recommendations of the clinical course of the patient DVT prophylaxis: Subcutaneous heparin GI Prophylaxis: Pepcid PT/OT: Pending Prognosis is guarded
[2018-09-30] MEDS: methylPREDNISolone SOD SUCCI 40 MG/ML 1 ML VIAL IV SCH ×3 (13:33→23:36)
[2018-09-30] MEDS: LORATADINE 10 MG TAB PO SCH (20:07)
[2018-10-01] MEDS: traMADol 50 MG TAB PO PRN ×2 (03:24→19:37)
[2018-10-01] MEDS: SODIUM CHLORIDE 0.45% 1,000 ML IV SCH ×2 (04:34→19:38)
[2018-10-01] MEDS: SYMBICORT 160-4.5 MCG INHALER INHALATION SCH ×2 (07:03→19:33)
[2018-10-01] MEDS: IPRATROPIUM-ALBUTEROL 3 ML NEB INHALATION SCH ×3 (07:03→19:34)
[2018-10-01] MEDS: methylPREDNISolone SOD SUCCI 40 MG/ML 1 ML VIAL IV SCH ×3 (08:34→23:01)
[2018-10-01] MEDS: METOPROLOL TARTRATE 50 MG TAB PO SCH ×2 (08:34→19:38)
[2018-10-01] MEDS: ISOSORBIDE MONONITRATE ER 30 MG TAB.ER.24H PO SCH (08:34)
[2018-10-01] MEDS: ATORVASTATIN 20 MG TAB PO SCH (08:35)
[2018-10-01] MEDS: CLINDAMYCIN 150 MG CAP PO SCH ×2 (08:35→19:37)
[2018-10-01] MEDS: BACLOFEN 10 MG TAB PO SCH ×3 (08:35→19:38)
[2018-10-01] MEDS: FUROSEMIDE 20 MG TAB PO SCH (08:35)
--- NOTE | 2018-10-01 09:29 | P.CNPUL ---
History of Present Illness Consult date: 09/30/18 (late entry note) Reason for consult: dyspnea, cough, asthma, COPD Chief complaint: Left-sided chest pain and shortness of breath History of present illness: 53-year-old female who has been having issues associated with chronic persistent asthma and chronic sinusitis, patient developed increasing shortness of breath with chest tightness came into the hospital for further evaluation, patient has been evaluated by primary service as well as cardiovascular services , patient is well-known to me for a problem associated with history of prior pneumonia, left renal cell cancer back in 2017, bilateral adrenal masses, history of left lower extremity deep venous thrombosis also has a history of hypertension she has ALLERGY to multiple allergens in the past, patient recently has been evaluated in the office has been treated with oral antibiotics and steroid without any significant relief, lately patient has been coughing greenish sputum as well as some streaks of blood off and on 2 with those problem patient came into the hospital for further evaluation currently being treated with broad-spectrum antibiotics steroids and breathing treatments Review of Systems All systems: negative Past Medical History Past Medical History: Asthma, COPD, GERD/Reflux, Hypertension, Osteoarthritis ( OA), Pneumonia, Skin Disorder Additional Past Medical History / Comment(s): admitted to [facility] 06/04/17 for L kidney decortication of a cyst pt stated pathology report 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 Bilateral adrenal masses being monitored, DVT L leg, urinary incontinence-wears depends, cardiac murmur as a teen, [place] ear. Emphysema. History of Any Multi-Drug Resistant Organisms: None Reported Past Surgical History: Adenoidectomy, Appendectomy, Bladder Surgery, Cholecystectomy, Hernia Repair, Hysterectomy, Tonsillectomy, Tubal Ligation Additional Past Surgical History / Comment(s): 06/04/17 cyst on left kidney removed, L kidney cyst aspiration, bilateral inguinal hernia repairs, bladder sling, bile duct surgery, lt breast bx-neg-clip in place, colonoscopy/polyps removed, uterus and cervix removed but still has ovaries and fallopian tubes.skin bx lt shoulder neg. heart cath 07/15/2017 Past Anesthesia/Blood Transfusion Reactions: No Reported Reaction Additional Past Anesthesia/Blood Transfusion Reaction / Comment(s): 1987- on operating table and had to resuscitate Past Psychological History: No Psychological Hx Reported Additional Psychological History / Comment(s): Pt resides with a friend. She has a nebulizer at home. She is not driving at this time due to recent surgery. She is independent. Smoking Status: Former smoker Past Alcohol Use History: None Reported Additional Past Alcohol Use History / Comment(s): Pt started smoking in 1986 and quit 04/2016. smoked 1.5 ppd Past Drug Use History: None Reported - Past Family History Mother Family Medical History: Cancer, Congestive Heart Failure (CHF), Sleep Apnea/CPAP /BIPAP Additional Family Medical History / Comment(s): Mother had breast cancer. She from CHF at the age of 55 yrs. Father Family Medical History: Cancer, Diabetes Mellitus Additional Family Medical History / Comment(s): Father from diabetic complications at the age of 60 yrs. He had brittle bone disease. Brother(s) Family Medical History: Deep Vein Thrombosis (DVT) Medications and Allergies Home Medications Medication Instructions Recorded Confirmed Type Budesonide-Formot 160-4.5 Mcg 2 puff INHALATION RT-BID 08/05/14 09/28/18 History [Symbicort 160-4.5 Mcg Inhaler] Atorvastatin [Lipitor] 20 mg PO DAILY 11/06/16 09/28/18 History Furosemide [Lasix] 20 mg PO DAILY 11/06/16 09/28/18 History Albuterol Inhaler [Ventolin Hfa 2 puff INHALATION RT-QID PRN 07/14/17 09/28/18 History Inhaler] Baclofen [Lioresal] 10 mg PO TID 11/10/17 09/28/18 History Isosorbide Mononitrate ER [Imdur] 30 mg PO DAILY 11/10/17 09/28/18 History Loratadine [Claritin] 10 mg PO HS #7 tab 12/29/17 09/28/18 Rx Nitroglycerin Sl Tabs [Nitrostat] 0.4 mg SUBLINGUAL Q5M PRN tab 12/29/17 Rx Docusate [Colace] 100 mg PO DAILY 09/28/18 09/28/18 History Ipratropium-Albuterol Nebulize 3 ml INHALATION RT-TID 09/28/18 09/28/18 History [Duoneb 0.5 mg-3 mg/3 ml Soln] Metoprolol Tartrate [Lopressor] 50 mg PO HS 09/28/18 09/28/18 History Metoprolol Tartrate [Lopressor] 100 mg PO QAM 09/28/18 09/28/18 History Allergies Allergy/AdvReac Type Severity Reaction Status Date / Time almond oil Allergy Severe Anaphylaxis Verified 09/28/18 22:51 alprazolam [From Xanax] Allergy Anaphylaxis Verified 09/28/18 22:51 aspirin Allergy Rash/Hives Verified 09/28/18 22:51 azithromycin Allergy Rapid Verified 09/28/18 22:51 Heart Rate bupropion HCl [From Zyban] Allergy Rash/Hives Verified 09/28/18 22:51 coconut Allergy Rash/Hives Verified 09/28/18 22:51 codeine Allergy Anaphylaxis Verified 09/28/18 22:51 diltiazem [From Cardizem] Allergy Anaphylaxis Verified 09/28/18 22:51 grapefruit Allergy Rash/Hives Verified 09/28/18 22:51 hydrocodone [From Keavy] Allergy Rash/Hives Verified 09/28/18 22:51 Latex, Natural Rubber Allergy Rash/Hives, Verified 09/28/18 22:51 throat swelling levofloxacin [From Levaquin] Allergy Anaphylaxis Verified 09/28/18 22:51 Penicillins Allergy Rash/Hives Verified 09/28/18 22:51 joseph Allergy Swelling Verified 09/28/18 22:51 tree nut [Pecan] Allergy Swelling Verified 09/28/18 22:51 egg AdvReac Unknown Verified 09/28/18 22:51 nadolol AdvReac Rash/Hives Verified 09/28/18 22:51 Physical Exam Vitals: Vital Signs Temp Pulse Pulse Resp BP BP BP 10/01/18 08:00 98.5 F 112 H 16 161/102 10/01/18 07:16 105 H 10/01/18 07:03 101 H 10/01/18 04:32 98.0 F 109 H 15 116/76 10/01/18 03:38 16 09/30/18 23:57 16 09/30/18 23:41 98.0 F 96 14 154/89 09/30/18 20:00 16 09/30/18 19:48 80 09/30/18 19:46 98.2 F 66 15 150/85 09/30/18 19:30 84 09/30/18 16:00 79 18 09/30/18 15:44 97.8 F 79 18 149/88 09/30/18 13:49 80 09/30/18 13:38 80 09/30/18 12:00 18 Pulse Ox 10/01/18 08:00 95 10/01/18 07:16 10/01/18 07:03 10/01/18 04:32 97 10/01/18 03:38 09/30/18 23:57 09/30/18 23:41 09/30/18 20:00 09/30/18 19:48 09/30/18 19:46 97 09/30/18 19:30 100 09/30/18 16:00 09/30/18 15:44 96 09/30/18 13:49 09/30/18 13:38 09/30/18 12:00 Intake and Output 09/30/18 10/01/18 10/01/18 22:59 06:59 14:59 Intake Total 400 Balance 400 Intake: Oral 400 Other: Voiding Method Toilet Toilet Toilet # Voids 1 1 - Constitutional General appearance: cooperative, disheveled, mild distress, morbidly obese - EENT Eyes: EOMI, PERRLA Ears: bilateral: normal - Neck Carotids: bilateral: upstroke normal Thyroid: bilateral: normal size - Respiratory Respiratory: bilateral: diminished, rhonchi, wheezing, prolonged expiration, negative: dullness, rales - Cardiovascular Rhythm: regular Heart sounds: normal: S1, S2 - Gastrointestinal General gastrointestinal: decreased bowel sounds - Integumentary Integumentary: normal turgor - Neurologic Neurologic: CNII-XII intact - Musculoskeletal Musculoskeletal: gait normal, generalized weakness, strength equal bilaterally - Psychiatric Psychiatric: A&O x's 3, appropriate affect, intact judgment & insight Results - Laboratory Findings CBC and BMP: 09/28/18 22:55 09/28/18 22:55 PT/INR, D-dimer PT 9.7 sec (9.0-12.0) 09/28/18 22:55 INR 0.9 (<1.2) 09/28/18 22:55 D-Dimer 0.44 mg/L FEU (<0.60) 09/28/18 22:55 Abnormal lab findings: Abnormal Labs 09/28/18 09/28/18 22:55 22:55 APTT 20.7 L Triglycerides 224 H HDL Cholesterol 63 H - Diagnostic Findings Chest x-ray: report reviewed, image reviewed Assessment and Plan Assessment: Atypical chest pain Acute asthma exacerbation COPD Baseline severe category Acute sinusitis Morbid obesity Bilateral adrenal masses following endocrine at [place] History of renal cell carcinoma status post resection left kidney back in 2017 Hypertensive urgency overall is stable now Plan: Broad-spectrum antibiotics Breathing treatments IV steroids Sputum for Gram stain and culture if able to obtain at We'll monitor observe clinical course closely if continued to be symptomatic consider doing a computed tomography scan of the chest with IV contrast Time with Patient: Greater than 30
--- NOTE | 2018-10-01 09:33 | P.PN ---
Subjective Progress Note Date: 10/01/18 Principal diagnosis: Atypical chest pain chest tightness likely related to acute asthma exacerbation , severe COPD baseline, acute sinusitis, morbid obesity, bilateral adrenal masses, history of renal cell carcinoma status post to the left partial nephrectomy back in 2017, uncontrolled hypertension hypertensive urgency 10/01/2018, patient seen eval examined during the rounds is still of ongoing cough congestion shortness of breath patient has thick greenish sputum production with intermittent streaks of blood, hemodynamic status overall stable blood pressure is a relatively better under control, would recommend to obtain computed tomography scan of the chest 53-year-old female who has been having issues associated with chronic persistent asthma and chronic sinusitis, patient developed increasing shortness of breath with chest tightness came into the hospital for further evaluation, patient has been evaluated by primary service as well as cardiovascular services , patient is well-known to me for a problem associated with history of prior pneumonia, left renal cell cancer back in 2016, bilateral adrenal masses, history of left lower extremity deep venous thrombosis also has a history of hypertension she has ALLERGY to multiple allergens in the past, patient recently has been evaluated in the office has been treated with oral antibiotics and steroid without any significant relief, lately patient has been coughing greenish sputum as well as some streaks of blood off and on 2 with those problem patient came into the hospital for further evaluation currently being treated with broad-spectrum antibiotics steroids and breathing treatments Objective - Vital Signs Vital signs: Vital Signs Temp 98.5 F 10/01/18 08:00 Pulse 112 H 10/01/18 08:00 Resp 16 10/01/18 08:00 BP 161/102 10/01/18 08:00 Pulse Ox 95 10/01/18 08:00 Intake & Output 09/30/18 10/01/18 10/01/18 18:59 06:59 18:59 Intake Total 640 Balance 640 Intake: Oral 640 Other: Voiding Method Toilet Toilet Toilet # Voids 1 1 1 - Exam - Constitutional General appearance: cooperative, disheveled, mild distress, morbidly obese - EENT Eyes: EOMI, PERRLA Ears: bilateral: normal - Neck Carotids: bilateral: upstroke normal Thyroid: bilateral: normal size - Respiratory Respiratory: bilateral: diminished, rhonchi, wheezing, prolonged expiration, negative: dullness, rales - Cardiovascular Rhythm: regular Heart sounds: normal: S1, S2 - Gastrointestinal General gastrointestinal: decreased bowel sounds - Integumentary Integumentary: normal turgor - Neurologic Neurologic: CNII-XII intact - Musculoskeletal Musculoskeletal: gait normal, generalized weakness, strength equal bilaterally - Psychiatric Psychiatric: A&O x's 3, appropriate affect, intact judgment & insight - Labs CBC & Chem 7: 09/28/18 22:55 09/28/18 22:55 Assessment and Plan Assessment: Atypical chest pain Intermittent hemoptysis likely airway inflammation, however given her past medical history other etiologies cannot be excluded Acute asthma exacerbation COPD Baseline severe category Acute sinusitis Morbid obesity Bilateral adrenal masses following endocrine at [place] History of renal cell carcinoma status post resection left kidney back in 2017 Hypertensive urgency overall is stable now Plan: Broad-spectrum antibiotics Breathing treatments IV steroids Sputum for Gram stain and culture if able to obtain at computed tomography scan of the chest with IV contrast on PE protocol for ongoing intermittent hemoptysis Time with Patient: Greater than 30
--- NOTE | 2018-10-01 10:38 | CT ---
EXAMINATION TYPE: CT angio chest DATE OF EXAM: 10/01/2018 COMPARISON: Radiograph 09/28/[address] 11/10/2017 HISTORY: 53-year-old female Pulmonary embolism TECHNIQUE: Contiguous axial scanning of the chest performed with IV Contrast, patient injected with 1 00 ml mL of Isovue 370. Coronal/sagittal MIP reconstructions performed. CT DLP: 524.7 mGycm Automated exposure control for dose reduction was used. FINDINGS: Heart upper limits of normal in size of a pericardial effusion. Coronary vessel calcifications are pr esent. Aorta normal caliber with conventional arch vessel branching anatomy. While there is satisfactory opacification of the pulmonary artery system, there is extensive breathin g motion artifacts are no large central pulmonary embolus. No definite lobar pulmonary embolus. Many of the segmental and more distal arterial branches are nondiagnostic due to the degree of vessel hete rogeneity due to breathing motion. Prominent band of scar or atelectasis at the inferior lingula Additional strandy scar or atelectasis medial basilar right middle lobe. Respiratory motion artifact limiting assessment for small pulmonary nodules. Mild centrilobular emphysema is present. Otherwise, no consolidation or pleural effusion. No thoracic lymphadenopathy by CT size criteria. Small hiatal hernia. Low density nodularity of the adrenal glands likely represents underlying adrena l adenomas measuring up to 2.0 cm and the left and 2.2 cm on the right. Small to moderate sized oment al fat-containing ventral epigastric midline hernia, partially visualized. Bones: Small central disc osteophyte complex at T7-T8. No osseous destructive process. IMPRESSION: 1. EXCESSIVE RESPIRATORY MOTION ARTIFACTS DEGRADING ASSESSMENT FOR PULMONARY EMBOLUS. NO LARGE CENTRA L OR DEFINITE LOBAR PULMONARY EMBOLUS. MANY OF THE SEGMENTAL AND MORE DISTAL ARTERIAL BRANCHES ARE NO NDIAGNOSTIC AND EMBOLI IN THESE LOCATIONS CANNOT BE RELIABLY EXCLUDED ON THE BASIS OF THIS EXAM. 2. COPD WITH MILD EMPHYSEMA. PROMINENT BANDS OF SCARRING OR ATELECTASIS INFERIOR LINGULA AND BASILAR RIGHT MIDDLE LOBE. 3. SMALL HIATAL HERNIA. [id number] SIZED OMENTAL FAT-CONTAINING VENTRAL EPIGASTRIC HERNIA. UDAY ATERAL ADRENAL NODULARITY MEASURING UP TO 2.2 CM APPEARS LOW DENSITY SUGGESTING UNDERLYING ADRENAL AD ENOMAS, STABLE FROM 11/10/2017
[2018-10-01] MEDS: FLUTICASONE 50MCG/SPRAY NASAL 16GM EA NOSTRIL SCH (12:19)
--- NOTE | 2018-10-01 18:43 | ECHOF ---
Referral Reason:chest pain MEASUREMENTS -------- HEIGHT: 157.5 cm WEIGHT: 104.3 kg BP: 118/72 RVIDd: 3.4 cm (< 3.3) IVSd: 1.0 cm (0.6 - 1.1) LVIDd: 4.7 cm (3.9 - 5.3) LVPWd: 1.1 cm (0.6 - 1.1) IVSs: 1.3 cm LVIDs: 2.9 cm LVPWs: 1.5 cm LA Diam: 3.9 cm (2.7 - 3.8) LAESV Index (A-L): 23.34 ml/m Ao Diam: 2.8 cm (2.0 - 3.7) AV Cusp: 2.1 cm (1.5 - 2.6) MV EXCURSION: 14.230 mm (> 18.000) MV EF SLOPE: 73 mm/s (70 - 150) EPSS: 0.5 cm MV E Bernardino: 1.48 m/s MV DecT: 237 ms MV A Bernardino: 1.21 m/s MV E/A Ratio: 1.22 FINDINGS -------- Sinus rhythm. This was a technically good study. The left ventricular size is normal. There is borderline concentric left ventricular hypertrophy. Overall left ventricular systolic function is normal with, an EF between 55 - 60 %. The right ventricle is mildly enlarged. Normal LA size by volume 22+/-6 ml/m2. The right atrial size is normal. The aortic valve is trileaflet, and appears structurally normal. No aortic stenosis or regurgitation. The mitral valve is normal. The tricuspid valve appears structurally normal. The pulmonic valve was not well visualized. There is no pulmonic regurgitation present. The aortic root size is normal. Normal inferior vena cava with normal inspiratory collapse consistent with estimated right atrial pre ssure of 5 mmHg. There is no pericardial effusion. CONCLUSIONS -------- 1. Sinus rhythm. 2. This was a technically good study. 3. The left ventricular size is normal. 4. There is borderline concentric left ventricular hypertrophy. 5. Overall left ventricular systolic function is normal with, an EF between 55 - 60 %. 6. The right ventricle is mildly enlarged. 7. Normal LA size by volume 22+/-6 ml/m2. 8. The aortic valve is trileaflet, and appears structurally normal. No aortic stenosis or regurgitati on. 9. The mitral valve is normal. 10. The tricuspid valve appears structurally normal. 11. The pulmonic valve was not well visualized. 12. There is no pulmonic regurgitation present. 13. The aortic root size is normal. 14. Normal inferior vena cava with normal inspiratory collapse consistent with estimated right atrial pressure of 5 mmHg. 15. There is no pericardial effusion. [employer]: Petty Mcnulty RDCS
[2018-10-01] MEDS: LORATADINE 10 MG TAB PO SCH (19:37)
[2018-10-01] MEDS: ONDANSETRON 4 MG/2 ML VIAL IVP PRN (19:56)
[2018-10-01] MEDS ORDERED: FUROSEMIDE 10 MG/ML 2 ML VIAL IV ONE (21:18)
[2018-10-01] MEDS ORDERED: IPRATROPIUM-ALBUTEROL 3 ML NEB INHALATION PRN (21:19)
--- NOTE | 2018-10-01 23:08 | PN ---
PROGRESS NOTE DATE OF SERVICE: 10/01/2018. HISTORY: This is a 53-year-old woman who was admitted with chest pain, also had COPD and asthma and shortness of breath also. A chest CTA was done. Further recommendations by Dr. Baird, the patient's director of promotions, showed no evidence of large pulmonary embolism. Small hiatal hernia was noted. No chest pain. No palpitations. No fever. EXAM: Alert and oriented x3. Pulse is 89, blood pressure 140/48, respirations 18, temperature 97.2, pulse ox 98% on room air. HEENT: Conjunctivae normal. CARDIOVASCULAR: S1 and S2 muffled. LUNGS: Breath sounds diminished at the bases. Bilateral scattered rhonchi and crackles. ABDOMEN: Soft, nontender. EXTREMITIES: No edema, no swelling. NERVOUS SYSTEM: No focal deficits. LABS: CBC, CMP within normal. Triglycerides 225. 63. Influenza negative. ASSESSMENT: 1. Shortness of breath with possible chronic obstructive pulmonary disease exacerbation with possible acute purulent tracheobronchitis. 2. Chest pain, myocardial infarction ruled out. 3. Acute sinusitis. 4. History of gastroesophageal reflux disease. 5. History of hypertension. 6. History of degenerative joint disease. 7. History of renal cell carcinoma in 2017. 8. History of bilateral adrenal masses, evaluated by [facility]. RECOMMENDATIONS AND DISCUSSION: In this 53-year-old woman who presented with multiple complex medical issues, we will monitor the patient closely, continue the current management and symptomatic treatment. Otherwise at this time I recommend continue with bronchodilators, optimize bronchodilators. Continue with IV steroids. Continue the rest of the medications. Further recommendations to follow. Chest x-ray which was done previously was personally reviewed by me. Further recommendations to follow. MMODL / IJN: [id number] / MTDD
[2018-10-02] MEDS: traMADol 50 MG TAB PO PRN ×2 (02:31→10:48)
[2018-10-02] MEDS: SYMBICORT 160-4.5 MCG INHALER INHALATION SCH ×2 (07:36→20:52)
[2018-10-02] MEDS: IPRATROPIUM-ALBUTEROL 3 ML NEB INHALATION SCH ×4 (07:36→20:52)
[2018-10-02] MEDS: ISOSORBIDE MONONITRATE ER 30 MG TAB.ER.24H PO SCH (08:00)
[2018-10-02] MEDS: CLINDAMYCIN 150 MG CAP PO SCH ×2 (08:01→21:17)
[2018-10-02] MEDS: FUROSEMIDE 20 MG TAB PO SCH (08:01)
[2018-10-02] MEDS: ATORVASTATIN 20 MG TAB PO SCH (08:01)
[2018-10-02] MEDS: METOPROLOL TARTRATE 50 MG TAB PO SCH ×2 (08:01→21:17)
[2018-10-02] MEDS: methylPREDNISolone SOD SUCCI 40 MG/ML 1 ML VIAL IV SCH ×2 (08:01→15:56)
[2018-10-02] MEDS: BACLOFEN 10 MG TAB PO SCH ×3 (08:01→21:17)
[2018-10-02 08:26] LABS: Basophils % (A) 0 %; Eosinophils % (A) 0 %; HCT 38.3 % (34.0-46.0); HGB 12.2 gm/dL (11.4-16.0); Hypochromasia Slight; Lymphocytes % (A) 5 %; MCH 28.8 pg (25.0-35.0); MCHC 31.8 g/dL (31.0-37.0); MCV 90.6 fL (80.0-100.0); Mean Platelet Volume 7.4; Monocytes # (A) 0.3 k/uL (0-1.0); Monocytes % (A) 2 %; Neutrophils % (A) 93 %; Platelet Count 358 k/uL (150-450); RBC 4.23 m/uL (3.80-5.40); RDW 14.3 % (11.5-15.5); WBC 18.4 k/uL (3.8-10.6)
--- NOTE | 2018-10-02 08:28 | CDI ---
Documentation Clarification Form Date: 10/02/2018 7:59:00 AM From: Sosa Morales Admit Date: 10/01/2018 7:52:00 PM Patient Name: Silav Kwon Visit Number: [id number] Discharge Date: ATTENTION: The Clinical Documentation Specialists (CDI) and [facility] Coding Staff appreciate your assistance in clarifying documentation. Please respond to the clarification below the line at the bottom and electronically sign. The CDI & [facility] Coding staff will review the response and follow-up if needed. Please note: Queries are made part of the Legal Health Record. If you have any questions, please contact the author of this message via ITS. Dr. Lopez Baird: Asthma is documented in the pulmonary consult & subsequent progress notes as "chronic persistent asthma". Also documented as "acute asthma exacerbation". History/risk factors: Chronic sinusitis, COPD, Asthma, former smoker. Clinical Indicators: Presented with chest pain, wheezing, productive cough & SOB. Radiology: 09/28 CXR: atelectasis, no change from previous. 09/29 CT sinus: right side paranasal sinus inflammatory. 10/01 CT chest: COPD w/mild emphysema. 09/28 OBS VS: T 97.7, P 80-105^, R 20, BP 153/82, PO 97 RA 10/01 IP VS: T 97.6, P 100, R 18 (cough, sob), BP 153/97, PO 95 RA Treatment: Albuterol INH, Symbicort INH, po Lasix, IV fl 75, Claritin, Flonase spray, IV Zofran, Robitussin cough syrup, IV solumedrol (09/30), IV Lasix (10/01) , INH continued. In your professional opinion, can you please further specify the following, if known? Severity o Mild persistent o Moderate persistent o Severe persistent o Other, please specify ____ o Unable to determine Form or Type o Cough variant o Childhood o Exercise induced bronchospasm o Extrinsic allergic o Idiosyncratic o Intrinsic nonallergic o Late-onset o Mixed o Other, please specify____ o Unable to determine (Last Revision: December 2017) MTDD
[2018-10-02 08:38] LABS: Anion Gap 9 mmol/L; Blood Urea Nitrogen 10 mg/dL (7-17); Calcium 9.5 mg/dL (8.4-10.2); Carbon Dioxide 26 mmol/L (22-30); Chloride 106 mmol/L (98-107); Glucose 138 mg/dL (74-99); Potassium 4.7 mmol/L (3.5-5.1); Sodium 141 mmol/L (137-145)
[2018-10-02] MEDS: FLUTICASONE 50MCG/SPRAY NASAL 16GM EA NOSTRIL SCH (10:49)
--- NOTE | 2018-10-02 14:54 | P.PN ---
Subjective Progress Note Date: 10/02/18 Principal diagnosis: Atypical chest pain chest tightness likely related to acute asthma exacerbation , severe COPD baseline, acute sinusitis, morbid obesity, bilateral adrenal masses, history of renal cell carcinoma status post to the left partial nephrectomy back in 2017, uncontrolled hypertension hypertensive urgency 10/02/2018, patient seen and evaluated examined during the rounds cuff congestion shortness was slightly better patient is status post computed tomography scan of the chest was negative for pulmonary embolism is still have intermittent significant wheezing and get short of breath on activity and exertion 10/01/2018, patient seen eval examined during the rounds is still of ongoing cough congestion shortness of breath patient has thick greenish sputum production with intermittent streaks of blood, hemodynamic status overall stable blood pressure is a relatively better under control, would recommend to obtain computed tomography scan of the chest 53-year-old female who has been having issues associated with chronic persistent asthma and chronic sinusitis, patient developed increasing shortness of breath with chest tightness came into the hospital for further evaluation, patient has been evaluated by primary service as well as cardiovascular services , patient is well-known to me for a problem associated with history of prior pneumonia, left renal cell cancer back in 2017, bilateral adrenal masses, history of left lower extremity deep venous thrombosis also has a history of hypertension she has ALLERGY to multiple allergens in the past, patient recently has been evaluated in the office has been treated with oral antibiotics and steroid without any significant relief, lately patient has been coughing greenish sputum as well as some streaks of blood off and on 2 with those problem patient came into the hospital for further evaluation currently being treated with broad-spectrum antibiotics steroids and breathing treatments Objective - Vital Signs Vital signs: Vital Signs Temp 97.7 F 10/02/18 08:00 Pulse 99 10/02/18 12:00 Resp 18 10/02/18 12:00 BP 146/84 10/02/18 08:00 Pulse Ox 97 10/02/18 08:00 Intake & Output 10/01/18 10/02/18 10/02/18 18:59 06:59 18:59 Intake Total 1044 Balance 1044 Weight 104.326 kg Intake: Oral 1044 Other: Voiding Method Toilet Toilet Toilet # Voids 1 - Exam - Constitutional General appearance: cooperative, disheveled, mild distress, morbidly obese - EENT Eyes: EOMI, PERRLA Ears: bilateral: normal - Neck Carotids: bilateral: upstroke normal Thyroid: bilateral: normal size - Respiratory Respiratory: bilateral: diminished, rhonchi, wheezing, prolonged expiration, negative: dullness, rales - Cardiovascular Rhythm: regular Heart sounds: normal: S1, S2 - Gastrointestinal General gastrointestinal: decreased bowel sounds - Integumentary Integumentary: normal turgor - Neurologic Neurologic: CNII-XII intact - Musculoskeletal Musculoskeletal: gait normal, generalized weakness, strength equal bilaterally - Psychiatric Psychiatric: A&O x's 3, appropriate affect, intact judgment & insight - Labs CBC & Chem 7: 10/02/18 07:36 10/02/18 07:36 Labs: Abnormal Lab Results - Last 24 Hours (Table) 10/02/18 10/02/18 Range/Units 07:36 07:36 WBC 18.4 H (3.8-10.6) k/uL Neutrophils # 17.0 H (1.3-7.7) k/uL Glucose 138 H (74-99) mg/dL Assessment and Plan Assessment: Atypical chest pain Intermittent hemoptysis likely airway inflammation, however resolve and improve now Acute asthma exacerbation COPD Baseline severe category Acute sinusitis Morbid obesity Bilateral adrenal masses following endocrine at [place] History of renal cell carcinoma status post resection left kidney back in 2017 Hypertensive urgency overall is stable now Plan: Broad-spectrum antibiotics Breathing treatments IV steroids Sputum for Gram stain and culture if able to obtain at computed tomography scan of the chest with IV contrast on PE protocol for reviewed, Time with Patient: Greater than 30
[2018-10-02] MEDS ORDERED: amLODIPine 5 MG TAB PO SCH (16:45)
[2018-10-02] MEDS: LORATADINE 10 MG TAB PO SCH (21:17)
[2018-10-03] MEDS: methylPREDNISolone SOD SUCCI 40 MG/ML 1 ML VIAL IV SCH ×3 (00:26→17:20)
[2018-10-03] MEDS ORDERED: NITROGLYCERIN SL TABS 0.4 MG TAB SUBLINGUAL PRN (00:43)
--- NOTE | 2018-10-03 04:14 | PN ---
PROGRESS NOTE DATE OF SERVICE: 10/02/2018 This is a 53-year-old woman admitted with shortness of breath, COPD exacerbation, being closely monitored. Dr. Baird is following the patient closely. No chest pain. No palpitations. No fever. The patient also has some intermittent hemoptysis, which is improved. EXAM: Alert and oriented x3. Pulse is 74, blood pressure 159/105, respiration 20, temperature is 97.2, pulse ox 98% on room air. HEENT: Conjunctivae normal. Oral mucosa moist. NECK: No jugular venous distention. CARDIOVASCULAR: S1, S2. RESPIRATORY: Breath sounds diminished in the bases. Scattered rhonchi and crackles. Abdomen is soft, nontender. Legs are no edema, no swelling. Central nervous system: No focal deficits. LABS: WBC 18.4. Other labs are noted. ASSESSMENT: 1. Chronic obstructive pulmonary disease acute exacerbation with acute purulent tracheobronchitis. 2. Intermittent hemoptysis, improved. 3. Chest pain, myocardial infarction ruled out. 4. Acute sinusitis. 5. History of gastroesophageal reflux disease. 6. Hypertension. 7. History of degenerative joint disease. 8. History of renal cell carcinoma in 2017. 9. History of bilateral adrenal masses evaluated by [facility]. RECOMMENDATIONS AND DISCUSSION: Recommend to continue current medications, management and symptomatic treatment. Continue with antibiotics and continue steroids. Closely follow with Dr. Baird. Otherwise influenza is negative. Guarded prognosis. Further recommendations to follow. MMODL / IJN: [id number] /
[2018-10-03] MEDS: SYMBICORT 160-4.5 MCG INHALER INHALATION SCH ×2 (07:01→18:58)
[2018-10-03] MEDS: IPRATROPIUM-ALBUTEROL 3 ML NEB INHALATION SCH ×4 (07:01→18:58)
[2018-10-03 07:40] LABS: Glucose,Whole Blood 118 mg/dL (75-99)
[2018-10-03] MEDS: INSULIN ASPART 100 UNIT/ML 1 ML 10 ML VIAL SQ SCH ×4 (08:57→22:03)
[2018-10-03] MEDS: BACLOFEN 10 MG TAB PO SCH ×3 (09:12→22:02)
[2018-10-03] MEDS: METOPROLOL TARTRATE 50 MG TAB PO SCH ×2 (09:12→22:03)
[2018-10-03] MEDS: CLINDAMYCIN 150 MG CAP PO SCH ×2 (09:12→22:02)
[2018-10-03] MEDS: FUROSEMIDE 20 MG TAB PO SCH (09:12)
[2018-10-03] MEDS: ISOSORBIDE MONONITRATE ER 30 MG TAB.ER.24H PO SCH (09:13)
[2018-10-03] MEDS: FLUTICASONE 50MCG/SPRAY NASAL 16GM EA NOSTRIL SCH (09:13)
[2018-10-03] MEDS: DOCUSATE 100 MG CAP PO SCH (09:13)
[2018-10-03] MEDS: ATORVASTATIN 20 MG TAB PO SCH (09:13)
[2018-10-03] MEDS: traMADol 50 MG TAB PO PRN ×2 (09:19→18:20)
[2018-10-03 09:30] LABS: Basophils % (A) 0 %; Eosinophils % (A) 0 %; HCT 37.9 % (34.0-46.0); HGB 11.7 gm/dL (11.4-16.0); Hypochromasia Slight; Lymphocytes % (A) 7 %; MCH 27.7 pg (25.0-35.0); MCHC 30.9 g/dL (31.0-37.0); MCV 89.6 fL (80.0-100.0); Mean Platelet Volume 6.4; Monocytes # (A) 0.4 k/uL (0-1.0); Monocytes % (A) 3 %; Neutrophils # (A) 12.8 k/uL (1.3-7.7); Neutrophils % (A) 90 %; Platelet Count 353 k/uL (150-450); RBC 4.23 m/uL (3.80-5.40); RDW 14.3 % (11.5-15.5); WBC 14.3 k/uL (3.8-10.6)
[2018-10-03 09:40] LABS: Anion Gap 10 mmol/L; Blood Urea Nitrogen 14 mg/dL (7-17); Calcium 9.4 mg/dL (8.4-10.2); Carbon Dioxide 25 mmol/L (22-30); Chloride 105 mmol/L (98-107); Glucose 184 mg/dL (74-99); Potassium 4.2 mmol/L (3.5-5.1); Sodium 140 mmol/L (137-145)
[2018-10-03 12:17] LABS: Glucose,Whole Blood 112 mg/dL (75-99)
[2018-10-03] MEDS ORDERED: POLYETHYLENE GLYCOL 3350 17 GM POWD.PACK PO STA (16:45)
[2018-10-03 17:20] LABS: Glucose,Whole Blood 153 mg/dL (75-99)
[2018-10-03 20:19] LABS: Hemoglobin A1C 5.7 % (4.0-6.0)
--- NOTE | 2018-10-03 20:22 | PN ---
PROGRESS NOTE DATE OF SERVICE: 10/03/2018 This 53-year-old woman who was admitted with COPD acute exacerbation also had some intermittent hemoptysis. The patient is improving significantly. Dr. De La Torre is following the patient closely. The patient chest CTA was noted. No chest pain. No palpitation. EXAM: Alert and oriented x3. The pulse is 87, blood pressure 140/87, respirations 16, temperature 97.6, pulse ox 98% on room air. HEENT: Conjunctivae normal. NECK: No jugular venous distention. CARDIOVASCULAR: S1, S2 muffled. RESPIRATORY: Breath sounds diminished in the bases. Scattered rhonchi and crackles. Expiratory wheezing also present. Abdomen: Soft, nontender. Nervous system: No focal deficits. LABS: At this time shows WBC 14.2, hemoglobin 11.7, glucose 184, 112. ASSESSMENT: 1. Chronic obstructive pulmonary disease acute exacerbation with acute purulent tracheobronchitis. 2. Intermittent hemoptysis, improved. No chest pain. Myocardial infarction ruled out. 3. Acute sinusitis. 4. History of gastroesophageal reflux disease. 5. Hypertension. 6. History of degenerative joint disease. 7. History of renal cell carcinoma in 2017. 8. History of bilateral adrenal masses evaluated at [facility]. RECOMMENDATIONS AND DISCUSSION: Recommend to continue current medications. Continue the symptomatic treatment. Continue bronchodilators. I recommend to continue with IV steroids. The dose may be tapered. Closely follow with Pulmonary. Continue the rest of medications. DVT prophylaxis. Further recommendations to follow. Coagulation parameters are normal. Influenza negative. Further recommendations to follow. MMODL / IJN: [id number] /
[2018-10-03 20:46] LABS: Glucose,Whole Blood 149 mg/dL (75-99)
[2018-10-03] MEDS: LORATADINE 10 MG TAB PO SCH (22:02)
[2018-10-04] MEDS: methylPREDNISolone SOD SUCCI 40 MG/ML 1 ML VIAL IV SCH ×2 (00:09→08:30)
[2018-10-04] MEDS: traMADol 50 MG TAB PO PRN (00:24)
[2018-10-04] MEDS: SYMBICORT 160-4.5 MCG INHALER INHALATION SCH ×2 (07:05→19:12)
[2018-10-04] MEDS: IPRATROPIUM-ALBUTEROL 3 ML NEB INHALATION SCH ×4 (07:05→19:12)
[2018-10-04 07:07] LABS: Glucose,Whole Blood 113 mg/dL (75-99)
[2018-10-04] MEDS: ISOSORBIDE MONONITRATE ER 30 MG TAB.ER.24H PO SCH (08:29)
[2018-10-04] MEDS: METOPROLOL TARTRATE 50 MG TAB PO SCH ×2 (08:29→21:01)
[2018-10-04] MEDS: DOCUSATE 100 MG CAP PO SCH (08:29)
[2018-10-04] MEDS: BACLOFEN 10 MG TAB PO SCH ×3 (08:30→21:00)
[2018-10-04] MEDS: CLINDAMYCIN 150 MG CAP PO SCH ×2 (08:30→21:11)
[2018-10-04] MEDS: INSULIN ASPART 100 UNIT/ML 1 ML 10 ML VIAL SQ SCH ×4 (08:30→21:08)
[2018-10-04] MEDS: ATORVASTATIN 20 MG TAB PO SCH (08:30)
[2018-10-04] MEDS: FUROSEMIDE 20 MG TAB PO SCH (08:30)
[2018-10-04] MEDS: FLUTICASONE 50MCG/SPRAY NASAL 16GM EA NOSTRIL SCH (08:31)
--- NOTE | 2018-10-04 09:38 | P.PN ---
Subjective Progress Note Date: 10/04/18 Principal diagnosis: Atypical chest pain chest tightness likely related to acute asthma exacerbation , severe COPD baseline, acute sinusitis, morbid obesity, bilateral adrenal masses, history of renal cell carcinoma status post to the left partial nephrectomy back in 2017, uncontrolled hypertension hypertensive urgency 10/04/2018, patient seen eval examined during the rounds clinically overall slightly anxious but breathing comfortably no obvious distress present patient remains on IV heparin, labs reviewed medications reviewed care plan discussed with the staff 10/03/2018, patient seen eval examined during the rounds clinically patient has been still short of breath cough wheezing ongoing for several likely improved compared to prior exam 10/02/2018, patient seen and evaluated examined during the rounds cuff congestion shortness was slightly better patient is status post computed tomography scan of the chest was negative for pulmonary embolism is still have intermittent significant wheezing and get short of breath on activity and exertion 10/01/2018, patient seen eval examined during the rounds is still of ongoing cough congestion shortness of breath patient has thick greenish sputum production with intermittent streaks of blood, hemodynamic status overall stable blood pressure is a relatively better under control, would recommend to obtain computed tomography scan of the chest 53-year-old female who has been having issues associated with chronic persistent asthma and chronic sinusitis, patient developed increasing shortness of breath with chest tightness came into the hospital for further evaluation, patient has been evaluated by primary service as well as cardiovascular services , patient is well-known to me for a problem associated with history of prior pneumonia, left renal cell cancer back in 2017, bilateral adrenal masses, history of left lower extremity deep venous thrombosis also has a history of hypertension she has ALLERGY to multiple allergens in the past, patient recently has been evaluated in the office has been treated with oral antibiotics and steroid without any significant relief, lately patient has been coughing greenish sputum as well as some streaks of blood off and on 2 with those problem patient came into the hospital for further evaluation currently being treated with broad-spectrum antibiotics steroids and breathing treatments Objective - Vital Signs Vital signs: Vital Signs Temp 97.5 F L 10/04/18 07:00 Pulse 78 10/04/18 07:16 Resp 16 10/04/18 07:00 BP 171/97 10/03/18 22:53 Pulse Ox 94 L 10/04/18 07:00 Intake & Output 10/03/18 10/04/18 10/04/18 18:59 06:59 18:59 Other: # Voids 3 2 - Exam - Constitutional General appearance: cooperative, disheveled, mild distress, morbidly obese - EENT Eyes: EOMI, PERRLA Ears: bilateral: normal - Neck Carotids: bilateral: upstroke normal Thyroid: bilateral: normal size - Respiratory Respiratory: bilateral: diminished, rhonchi, wheezing, prolonged expiration, negative: dullness, rales - Cardiovascular Rhythm: regular Heart sounds: normal: S1, S2 - Gastrointestinal General gastrointestinal: decreased bowel sounds - Integumentary Integumentary: normal turgor - Neurologic Neurologic: CNII-XII intact - Musculoskeletal Musculoskeletal: gait normal, generalized weakness, strength equal bilaterally - Psychiatric Psychiatric: A&O x's 3, appropriate affect, intact judgment & insight - Labs CBC & Chem 7: 10/03/18 08:58 10/03/18 08:58 Labs: Abnormal Lab Results - Last 24 Hours (Table) 10/03/18 10/03/18 10/03/18 Range/Units 08:58 08:58 12:12 WBC 14.3 H (3.8-10.6) k/uL MCHC 30.9 L (31.0-37.0) g/dL Neutrophils # 12.8 H (1.3-7.7) k/uL Glucose 184 H (74-99) mg/dL POC Glucose (mg/dL) 112 H (75-99) mg/dL 10/03/18 10/03/18 10/04/18 Range/Units 17:18 20:45 07:04 WBC (3.8-10.6) k/uL MCHC (31.0-37.0) g/dL Neutrophils # (1.3-7.7) k/uL Glucose (74-99) mg/dL POC Glucose (mg/dL) 153 H 149 H 113 H (75-99) mg/dL Assessment and Plan Assessment: Atypical chest pain Intermittent hemoptysis likely airway inflammation, however resolve and improve now Acute asthma exacerbation COPD Baseline severe category Acute sinusitis Morbid obesity Bilateral adrenal masses following endocrine at [place] History of renal cell carcinoma status post resection left kidney back in 2017 Hypertensive urgency overall is stable now Plan: Broad-spectrum antibiotics Breathing treatments IV steroids, can be switched to oral Sputum for Gram stain and culture if able to obtain at computed tomography scan of the chest with IV contrast on PE protocol for reviewed, Time with Patient: Greater than 30
[2018-10-04 09:59] LABS: Basophils % (A) 0 %; Eosinophils % (A) 0 %; HCT 36.9 % (34.0-46.0); HGB 11.9 gm/dL (11.4-16.0); Hypochromasia Slight; Lymphocytes # (A) 1.2 k/uL (1.0-4.8); Lymphocytes % (A) 9 %; MCH 28.8 pg (25.0-35.0); MCHC 32.1 g/dL (31.0-37.0); MCV 89.5 fL (80.0-100.0); Mean Platelet Volume 7.4; Monocytes # (A) 0.5 k/uL (0-1.0); Monocytes % (A) 4 %; Neutrophils # (A) 11.3 k/uL (1.3-7.7); Neutrophils % (A) 86 %; Platelet Count 356 k/uL (150-450); RBC 4.12 m/uL (3.80-5.40); RDW 14.2 % (11.5-15.5); WBC 13.2 k/uL (3.8-10.6)
[2018-10-04 10:06] LABS: Anion Gap 7 mmol/L; Blood Urea Nitrogen 15 mg/dL (7-17); Carbon Dioxide 24 mmol/L (22-30); Chloride 107 mmol/L (98-107); Glucose 143 mg/dL (74-99); Potassium 4.2 mmol/L (3.5-5.1); Sodium 138 mmol/L (137-145)
[2018-10-04 12:29] LABS: Glucose,Whole Blood 115 mg/dL (75-99)
[2018-10-04] MEDS: predniSONE 20 MG TAB PO SCH (16:11)
[2018-10-04 17:10] LABS: Glucose,Whole Blood 127 mg/dL (75-99)
--- NOTE | 2018-10-04 17:46 | PN ---
PROGRESS NOTE DATE OF SERVICE: 10/04/2018 This 53-year-old woman was admitted with COPD acute exacerbation as well as intermittent hemoptysis, improving significantly. Dr. Baird is following the patient closely. No chest pain. No palpitations. No fever. The patient is on IV steroids. EXAM: Alert and oriented x3. Pulse is 97. Blood pressure 150/89, respirations 16, temperature 98.4, pulse ox 98% on room air. HEENT: Conjunctivae normal. NECK: No jugular venous distention. CARDIOVASCULAR: S1, S2. RESPIRATORY: Breath sounds diminished in the bases. Scattered rhonchi and crackles. ABDOMEN is soft, nontender. Legs are no edema, no swelling. LABS: WBC 13.8, hemoglobin 11.2. Glucose 143. ASSESSMENT: 1. Chronic obstructive pulmonary disease acute exacerbation with acute purulent tracheobronchitis. 2. Intermittent hemoptysis, improved. 3. Chest pain myocardial infarction ruled out. 4. Acute sinusitis. 5. History of gastroesophageal reflux disease. 6. Hypertension. 7. History of degenerative joint disease. 8. History of renal cell carcinoma in 2017. 9. History of bilateral adrenal masses evaluated at [facility]. RECOMMENDATIONS AND DISCUSSION: Recommend to continue current medications, management and symptomatic treatment. Closely follow with Dr. Baird. Continue with steroids, which are tapered at this time. Further recommendations to follow. MMODL / IJN: [id number] /
[2018-10-04 20:52] LABS: Glucose,Whole Blood 140 mg/dL (75-99)
[2018-10-04] MEDS: LORATADINE 10 MG TAB PO SCH (21:00)
[2018-10-04] MEDS: POLYETHYLENE GLYCOL 3350 17 GM POWD.PACK PO SCH (21:01)
[2018-10-05 06:53] LABS: Glucose,Whole Blood 91 mg/dL (75-99)
[2018-10-05] MEDS: METOPROLOL TARTRATE 50 MG TAB PO SCH ×2 (06:56→22:59)
[2018-10-05] MEDS: IPRATROPIUM-ALBUTEROL 3 ML NEB INHALATION SCH ×4 (07:21→19:01)
[2018-10-05] MEDS: SYMBICORT 160-4.5 MCG INHALER INHALATION SCH ×2 (07:21→19:01)
[2018-10-05] MEDS: INSULIN ASPART 100 UNIT/ML 1 ML 10 ML VIAL SQ SCH ×4 (07:49→22:58)
[2018-10-05] MEDS: ATORVASTATIN 20 MG TAB PO SCH (08:16)
[2018-10-05] MEDS: FUROSEMIDE 20 MG TAB PO SCH (08:16)
[2018-10-05] MEDS: CLINDAMYCIN 150 MG CAP PO SCH ×2 (08:16→22:57)
[2018-10-05] MEDS: ISOSORBIDE MONONITRATE ER 30 MG TAB.ER.24H PO SCH (08:17)
[2018-10-05] MEDS: DOCUSATE 100 MG CAP PO SCH (08:17)
[2018-10-05] MEDS: predniSONE 20 MG TAB PO SCH (08:17)
[2018-10-05] MEDS: FLUTICASONE 50MCG/SPRAY NASAL 16GM EA NOSTRIL SCH (08:17)
[2018-10-05] MEDS: BACLOFEN 10 MG TAB PO SCH ×3 (08:17→22:58)
[2018-10-05] MEDS: traMADol 50 MG TAB PO PRN (08:35)
[2018-10-05] MEDS ORDERED: amLODIPine 5 MG TAB PO SCH (09:30)
[2018-10-05 09:50] LABS: Basophils % (A) 0 %; Eosinophils % (A) 0 %; HCT 38.6 % (34.0-46.0); HGB 12.3 gm/dL (11.4-16.0); Hypochromasia Slight; Lymphocytes # (A) 2.5 k/uL (1.0-4.8); Lymphocytes % (A) 20 %; MCH 28.6 pg (25.0-35.0); MCHC 31.9 g/dL (31.0-37.0); MCV 89.6 fL (80.0-100.0); Mean Platelet Volume 7.2; Monocytes # (A) 0.7 k/uL (0-1.0); Monocytes % (A) 6 %; Neutrophils # (A) 8.9 k/uL (1.3-7.7); Neutrophils % (A) 72 %; Platelet Count 360 k/uL (150-450); RBC 4.31 m/uL (3.80-5.40); RDW 14.2 % (11.5-15.5); WBC 12.4 k/uL (3.8-10.6)
[2018-10-05 09:58] LABS: Anion Gap 8 mmol/L; Blood Urea Nitrogen 17 mg/dL (7-17); Carbon Dioxide 24 mmol/L (22-30); Chloride 107 mmol/L (98-107); Glucose 101 mg/dL (74-99); Potassium 3.7 mmol/L (3.5-5.1); Sodium 139 mmol/L (137-145)
[2018-10-05] MEDS: NYSTATIN 100,000 UNIT/ML SUSP 500,000 UNIT/5 ML CUP PO SCH ×4 (10:43→20:57)
[2018-10-05] MEDS ORDERED: ISOSORBIDE MONONITRATE ER 15 MG TAB PO SCH ×2 (10:45)
[2018-10-05 12:03] LABS: Glucose,Whole Blood 86 mg/dL (75-99)
--- NOTE | 2018-10-05 12:54 | P.PN ---
Subjective Progress Note Date: 10/05/18 Principal diagnosis: Atypical chest pain chest tightness likely related to acute asthma exacerbation , severe COPD baseline, acute sinusitis, morbid obesity, bilateral adrenal masses, history of renal cell carcinoma status post to the left partial nephrectomy back in 2017, uncontrolled hypertension hypertensive urgency 10/05/2018, patient seen eval reexamined during the rounds care plan discussed with the staff clinically patient has been doing well agree with discharge planning on oral antibiotics and steroids with follow-up in outpatient setting 10/04/2018, patient seen eval examined during the rounds clinically overall slightly anxious but breathing comfortably no obvious distress present patient remains on IV heparin, labs reviewed medications reviewed care plan discussed with the staff 10/03/2018, patient seen eval examined during the rounds clinically patient has been still short of breath cough wheezing ongoing for several likely improved compared to prior exam 10/02/2018, patient seen and evaluated examined during the rounds cuff congestion shortness was slightly better patient is status post computed tomography scan of the chest was negative for pulmonary embolism is still have intermittent significant wheezing and get short of breath on activity and exertion 10/01/2018, patient seen eval examined during the rounds is still of ongoing cough congestion shortness of breath patient has thick greenish sputum production with intermittent streaks of blood, hemodynamic status overall stable blood pressure is a relatively better under control, would recommend to obtain computed tomography scan of the chest 53-year-old female who has been having issues associated with chronic persistent asthma and chronic sinusitis, patient developed increasing shortness of breath with chest tightness came into the hospital for further evaluation, patient has been evaluated by primary service as well as cardiovascular services , patient is well-known to me for a problem associated with history of prior pneumonia, left renal cell cancer back in 2017, bilateral adrenal masses, history of left lower extremity deep venous thrombosis also has a history of hypertension she has ALLERGY to multiple allergens in the past, patient recently has been evaluated in the office has been treated with oral antibiotics and steroid without any significant relief, lately patient has been coughing greenish sputum as well as some streaks of blood off and on 2 with those problem patient came into the hospital for further evaluation currently being treated with broad-spectrum antibiotics steroids and breathing treatments Objective - Vital Signs Vital signs: Vital Signs Temp 97.4 F L 10/04/18 23:00 Pulse 68 10/05/18 11:04 Resp 16 10/05/18 01:07 BP 192/90 10/05/18 12:52 Pulse Ox 96 10/05/18 01:07 Intake & Output 10/04/18 10/05/18 10/05/18 18:59 06:59 18:59 Intake Total 450 Balance 450 Intake: Oral 450 Other: Voiding Method Toilet # Voids 3 0 3 # Bowel Movements 1 0 - Exam - Constitutional General appearance: cooperative, disheveled, mild distress, morbidly obese - EENT Eyes: EOMI, PERRLA Ears: bilateral: normal - Neck Carotids: bilateral: upstroke normal Thyroid: bilateral: normal size - Respiratory Respiratory: bilateral: diminished, rhonchi, wheezing, prolonged expiration, negative: dullness, rales - Cardiovascular Rhythm: regular Heart sounds: normal: S1, S2 - Gastrointestinal General gastrointestinal: decreased bowel sounds - Integumentary Integumentary: normal turgor - Neurologic Neurologic: CNII-XII intact - Musculoskeletal Musculoskeletal: gait normal, generalized weakness, strength equal bilaterally - Psychiatric Psychiatric: A&O x's 3, appropriate affect, intact judgment & insight - Labs CBC & Chem 7: 10/05/18 09:21 10/05/18 09:21 Labs: Abnormal Lab Results - Last 24 Hours (Table) 10/04/18 10/04/18 10/05/18 Range/Units 17:09 20:34 09:21 WBC 12.4 H (3.8-10.6) k/uL Neutrophils # 8.9 H (1.3-7.7) k/uL Glucose (74-99) mg/dL POC Glucose (mg/dL) 127 H 140 H (75-99) mg/dL 10/05/18 Range/Units 09:21 WBC (3.8-10.6) k/uL Neutrophils # (1.3-7.7) k/uL Glucose 101 H (74-99) mg/dL POC Glucose (mg/dL) (75-99) mg/dL Assessment and Plan Assessment: Atypical chest pain Intermittent hemoptysis likely airway inflammation, however resolve and improve now Acute asthma exacerbation COPD Baseline severe category Acute sinusitis Morbid obesity Bilateral adrenal masses following endocrine at [place] History of renal cell carcinoma status post resection left kidney back in 2017 Hypertensive urgency overall is stable now Plan: Broad-spectrum antibiotics Breathing treatments IV steroids, can be switched to oral Sputum for Gram stain and culture if able to obtain at computed tomography scan of the chest with IV contrast on PE protocol for reviewed, Time with Patient: Greater than 30
[2018-10-05] MEDS: ACETAMINOPHEN TAB 325 MG TAB PO PRN ×2 (12:56→18:14)
[2018-10-05] MEDS: hydrALAZINE HCL 50 MG TAB PO SCH ×3 (14:17→22:58)
--- NOTE | 2018-10-05 16:09 | P.PN ---
Subjective Progress Note Date: 10/05/18 Progress note being dictated for Dr. Campos. Interval history:this is a pleasant 53 years old female with past medical history of asthma/COPD, GERD, hypertension, osteoarthritis, pneumonia left renal cell carcinoma in 2017. Bilateral adrenal masses. Left leg DVT. patient presents because of her high blood pressure. Patient says that yesterday she was sitting in bed she felt and well while she's going in and out of the restroom. She felt chest pain with some dyspnea and dizziness. Patient states that her chest pain was 10/10 below her left breast nonradiating but sometimes goes to her left arm, felt squeezing in character, associated with some dyspnea and she felt a little bit dizzy with headache. Also patient complaining of from coughing with greenish phlegm for the last few days and she thinks that her sinuses infection coming back to her as there was some blood in her greenish discharge. Of note the patient has been treated with steroids and antibiotics for sinus infection about 2-3 weeks ago. on admission [facility] looks stable she has negative d-dimer at 0.44. CBC and BMP were unremarkable. She has several negative troponin. chest x-ray showing any mild subsegmental atelectasis similar to old exam with normal heart.Doppler was negative for DVT in the left leg.patient has been evaluated by cemetery worker who adjusted her blood pressure medication and recommended to increase activity and cleared her for discharge 09/30/2018 Today patient still complaining of from dizziness and headache. Patient describes the dizziness as presyncope and she says it's worse when she stands up however orthostatic was checked yesterday and were negative. She still have cough with green phlegm and nasal drip. She still have nasal congestion she sits little bit improvement in her ability to blow her nose, her chest pain is coming down from 10/10 down to 7/10 as per patient. She was still looks with shortness of breath and on examination she has wheezing, scattered but they're mild. She doesn't have bowel movement for last 1 or 2 days. ENT evaluation is appreciated patient was started on clindamycin and Flonase. DC doxycycline. Sinus CAT scan showing severe sinusitis. We'll order physical therapy evaluation today. And pulmonary consult with Dr. Weinstein who is her new car get ready mechanic. We going to IV steroids, cough syrup today. 10/05/2018 significant improvement in breathing. Initially planned for discharge home today, but hypertensive. BP meds further adjusted. Denies chest pain, palpitations or increased shortness of breath. Denies lightheadedness dizziness or focal deficits. Afebrile. Objective - Vital Signs Vital signs: Vital Signs Temp 97.4 F L 10/04/18 23:00 Pulse 68 10/05/18 11:04 Resp 16 10/05/18 01:07 BP 176/94 10/05/18 15:24 Pulse Ox 96 10/05/18 01:07 Intake & Output 10/04/18 10/05/18 10/05/18 18:59 06:59 18:59 Intake Total 450 Balance 450 Intake: Oral 450 Other: Voiding Method Toilet # Voids 3 0 3 # Bowel Movements 1 0 - Exam GENERAL: The patient is alert and oriented x3, no acute distress. Well developed , well nourished. -HEENT: Pupils are round and equally reacting to light. EOMI. No scleral icterus. No conjunctival pallor. Normocephalic, atraumatic. CARDIOVASCULAR: S1 and S2 present. No murmurs, rubs, or gallops. PULMONARY: Chest is clear to auscultation, no wheezing or crackles. ABDOMEN: Soft, nontender, nondistended, normoactive bowel sounds. No palpable organomegaly. EXTREMITIES: No cyanosis, clubbing, or pedal edema. NEUROLOGICAL: Gross neurological examination did not reveal any focal deficits. SKIN: No rashes. - Labs CBC & Chem 7: 10/05/18 09:21 10/05/18 09:21 Labs: Abnormal Lab Results - Last 24 Hours (Table) 10/04/18 10/04/18 10/05/18 Range/Units 17:09 20:34 09:21 WBC 12.4 H (3.8-10.6) k/uL Neutrophils # 8.9 H (1.3-7.7) k/uL Glucose (74-99) mg/dL POC Glucose (mg/dL) 127 H 140 H (75-99) mg/dL 10/05/18 Range/Units 09:21 WBC (3.8-10.6) k/uL Neutrophils # (1.3-7.7) k/uL Glucose 101 H (74-99) mg/dL POC Glucose (mg/dL) (75-99) mg/dL Assessment and Plan Assessment: chest pain, atypical as per cardiology Hypertensive urgency, improved Acute sinusitis, of the left maxillary sinusitis History of COPD/asthma, with possible mild exacerbation history of GERD Essential hypertension, was uncontrolled on admission. History of posterior arthritis History of left renal cell carcinoma 2017 She has bilateral adrenal masses and she's follow up with orthopedic nurse and [facility]. next appointment is going to be this coming November 2018 obesity, BMI 42.1 Oral candidasis Plan: Continue on current medication regime ,monitoring and symptomatic treatment. Nystatin added to med regime. Maintain nebulized bronchodilators, antibiotics, steroids. Adjusting antihypertensive further with monitoring overnight. Discharge planning in progress for tomorrow. Patient has been advised to follow-up outpatient with her oncologist and orthopedic nurse, as previously advised. Further recommendations to follow. The impression and plan of care has been dictated as directed. : I performed a history and examination of this patient, discussed the same with the dictator. I agree with the dictator's note ,documented as a scribe. Any additional findings or plans will be noted.
[2018-10-05 16:57] LABS: Glucose,Whole Blood 134 mg/dL (75-99)
[2018-10-05 21:56] LABS: Glucose,Whole Blood 136 mg/dL (75-99)
[2018-10-05] MEDS: LORATADINE 10 MG TAB PO SCH (22:59)
[2018-10-05] MEDS: POLYETHYLENE GLYCOL 3350 17 GM POWD.PACK PO SCH (23:00)
[2018-10-06] MEDS: NYSTATIN 100,000 UNIT/ML SUSP 500,000 UNIT/5 ML CUP PO SCH ×2 (00:27→08:35)
[2018-10-06 01:59] VITALS: RESP 18
[2018-10-06] MEDS: IPRATROPIUM-ALBUTEROL 3 ML NEB INHALATION SCH ×3 (07:28→15:55)
[2018-10-06] MEDS: SYMBICORT 160-4.5 MCG INHALER INHALATION SCH (07:28)
[2018-10-06 07:43] LABS: Glucose,Whole Blood 73 mg/dL (75-99)
[2018-10-06] MEDS: INSULIN ASPART 100 UNIT/ML 1 ML 10 ML VIAL SQ SCH ×3 (08:22→17:44)
[2018-10-06] MEDS: METOPROLOL TARTRATE 50 MG TAB PO SCH (08:30)
[2018-10-06] MEDS: ATORVASTATIN 20 MG TAB PO SCH (08:30)
[2018-10-06] MEDS: predniSONE 20 MG TAB PO SCH (08:30)
[2018-10-06] MEDS: BACLOFEN 10 MG TAB PO SCH ×2 (08:31→16:04)
[2018-10-06] MEDS: FUROSEMIDE 20 MG TAB PO SCH (08:31)
[2018-10-06] MEDS: CLINDAMYCIN 150 MG CAP PO SCH (08:31)
[2018-10-06] MEDS: DOCUSATE 100 MG CAP PO SCH (08:31)
[2018-10-06] MEDS: FLUTICASONE 50MCG/SPRAY NASAL 16GM EA NOSTRIL SCH (08:35)
[2018-10-06] MEDS ORDERED: ISOSORBIDE MONONITRATE ER 15 MG TAB PO SCH ×2 (09:00→10:45)
[2018-10-06] MEDS ORDERED: LOSARTAN 50 MG TAB PO SCH (10:00)
[2018-10-06] MEDS: CLOTRIMAZOLE TROCHE 10 MG TROCHE PO SCH ×2 (11:39→16:04)
[2018-10-06 12:35] LABS: Glucose,Whole Blood 96 mg/dL (75-99)
[2018-10-06] MEDS ORDERED: IOPAMIDOL-300 CONTRAST 30 ML VIAL (ORAL USE) PO PRN (13:17)
[2018-10-06] MEDS ORDERED: FAMOTIDINE 20 MG TAB PO SCH (13:30)
[2018-10-06] MEDS: IOPAMIDOL-300 CONTRAST 30 ML VIAL (ORAL USE) PO PRN ×2 (13:36→14:33)
--- NOTE | 2018-10-06 13:46 | P.PN ---
Subjective Progress Note Date: 10/06/18 Principal diagnosis: Atypical chest pain chest tightness likely related to acute asthma exacerbation , severe COPD baseline, acute sinusitis, morbid obesity, bilateral adrenal masses, history of renal cell carcinoma status post to the left partial nephrectomy back in 2017, uncontrolled hypertension hypertensive urgency 10/06/2018, patient seen eval examined during rounds clinically patient overall from estrogen standpoint doing slightly better less short of breath and wheezy but however has problems associated lower GI bleed for which primary services ordering a CAT scan in GI consultation, have some abdominal discomfort and pain which however has improved though today, labs reviewed medications reviewed 10/05/2018, patient seen eval reexamined during the rounds care plan discussed with the staff clinically patient has been doing well agree with discharge planning on oral antibiotics and steroids with follow-up in outpatient setting 10/04/2018, patient seen eval examined during the rounds clinically overall slightly anxious but breathing comfortably no obvious distress present patient remains on IV heparin, labs reviewed medications reviewed care plan discussed with the staff 10/03/2018, patient seen eval examined during the rounds clinically patient has been still short of breath cough wheezing ongoing for several likely improved compared to prior exam 10/02/2018, patient seen and evaluated examined during the rounds cuff congestion shortness was slightly better patient is status post computed tomography scan of the chest was negative for pulmonary embolism is still have intermittent significant wheezing and get short of breath on activity and exertion 10/01/2018, patient seen eval examined during the rounds is still of ongoing cough congestion shortness of breath patient has thick greenish sputum production with intermittent streaks of blood, hemodynamic status overall stable blood pressure is a relatively better under control, would recommend to obtain computed tomography scan of the chest 53-year-old female who has been having issues associated with chronic persistent asthma and chronic sinusitis, patient developed increasing shortness of breath with chest tightness came into the hospital for further evaluation, patient has been evaluated by primary service as well as cardiovascular services , patient is well-known to me for a problem associated with history of prior pneumonia, left renal cell cancer back in 2017, bilateral adrenal masses, history of left lower extremity deep venous thrombosis also has a history of hypertension she has ALLERGY to multiple allergens in the past, patient recently has been evaluated in the office has been treated with oral antibiotics and steroid without any significant relief, lately patient has been coughing greenish sputum as well as some streaks of blood off and on 2 with those problem patient came into the hospital for further evaluation currently being treated with broad-spectrum antibiotics steroids and breathing treatments Objective - Vital Signs Vital signs: Vital Signs Temp 97.5 F L 10/06/18 07:00 Pulse 80 10/06/18 11:23 Resp 18 10/06/18 07:00 BP 134/84 10/06/18 07:00 Pulse Ox 96 10/06/18 07:31 Intake & Output 10/05/18 10/06/18 10/06/18 18:59 06:59 18:59 Intake Total 300 Balance 300 Intake: Oral 300 Other: # Voids 4 4 # Bowel Movements 0 - Exam - Constitutional General appearance: cooperative, disheveled, mild distress, morbidly obese - EENT Eyes: EOMI, PERRLA Ears: bilateral: normal - Neck Carotids: bilateral: upstroke normal Thyroid: bilateral: normal size - Respiratory Respiratory: bilateral: diminished, rhonchi, wheezing, prolonged expiration, negative: dullness, rales - Cardiovascular Rhythm: regular Heart sounds: normal: S1, S2 - Gastrointestinal General gastrointestinal: decreased bowel sounds, mild tenderness predominantly on the left quadrant, no rebound rigidity noted - Integumentary Integumentary: normal turgor - Neurologic Neurologic: CNII-XII intact - Musculoskeletal Musculoskeletal: gait normal, generalized weakness, strength equal bilaterally - Psychiatric Psychiatric: A&O x's 3, appropriate affect, intact judgment & insight - Labs CBC & Chem 7: 10/05/18 09:21 10/05/18 09:21 Labs: Abnormal Lab Results - Last 24 Hours (Table) 10/05/18 10/05/18 10/06/18 Range/Units 16:50 21:47 07:41 POC Glucose (mg/dL) 134 H 136 H 73 L (75-99) mg/dL Assessment and Plan Assessment: Atypical chest pain Intermittent hemoptysis likely airway inflammation, however resolve and improve now, no new episode has been noted of note that has been unwitnessed Lower GI bleed possible diverticulosis with some abdominal discomfort and pain workup is in progress Acute asthma exacerbation COPD Baseline severe category Acute sinusitis Morbid obesity Bilateral adrenal masses following endocrine at [facility] History of renal cell carcinoma status post resection left kidney back in 2017 Hypertensive urgency overall is stable now Plan: Broad-spectrum antibiotics Breathing treatments IV steroids, can be switched to oral with slow taper Sputum for Gram stain and culture if able to obtain at computed tomography scan of the chest with IV contrast on PE protocol for reviewed, Time with Patient: Greater than 30
[2018-10-06 14:22] LABS: Basophils % (A) 0 %; Eosinophils # (A) 0.1 k/uL (0-0.7); Eosinophils % (A) 1 %; HCT 40.2 % (34.0-46.0); HGB 12.6 gm/dL (11.4-16.0); Lymphocytes # (A) 1.2 k/uL (1.0-4.8); Lymphocytes % (A) 7 %; MCH 27.9 pg (25.0-35.0); MCHC 31.4 g/dL (31.0-37.0); MCV 88.9 fL (80.0-100.0); Mean Platelet Volume 7.2; Monocytes # (A) 0.3 k/uL (0-1.0); Monocytes % (A) 2 %; Neutrophils # (A) 14.8 k/uL (1.3-7.7); Neutrophils % (A) 90 %; Platelet Count 365 k/uL (150-450); RBC 4.52 m/uL (3.80-5.40); RDW 14.4 % (11.5-15.5); WBC 16.5 k/uL (3.8-10.6)
[2018-10-06 15:26] VITALS: BP 127/77; TEMP 98.4
--- NOTE | 2018-10-06 15:56 | CT ---
EXAMINATION TYPE: CT abdomen pelvis wo con DATE OF EXAM: 10/06/2018 COMPARISON: None HISTORY: Abdominal pain and nausea. CT DLP: 1295 mGycm Automated exposure control for dose reduction was used. TECHNIQUE: Helical acquisition of images was performed from the lung bases through the pelvis. FINDINGS: LUNG BASES: Subsegmental consolidation involving the lungs most compatible atelectasis. LIVER/GB: No significant abnormality is appreciated. PANCREAS: No significant abnormality is seen. SPLEEN: No significant abnormality is seen. ADRENALS: There are bilateral adrenal nodules measuring 1.4 cm on the left these are nonspecific. And 2.8 cm on the right. KIDNEYS: No significant abnormality is seen. ADENOPATHY: None visualized. OSSEOUS STRUCTURES: Hypertrophic and degenerative change of the spine. BOWEL: No significant abnormality is seen. OTHER: Atherosclerotic change of the aorta. No aneurysm. Small anterior abdominal wall hernia contain ing peritoneal fat. Findings suggest previous hysterectomy. Soft tissue nodules in both adnexal regio ns likely related to the ovary with a suspected cyst bilaterally greater on the right measuring 1.6 c m. Recommend follow-up ultrasound. Metallic densities adjacent the left kidney likely related to prev ious surgery. IMPRESSION: 1. Nonspecific gas pattern with no obstruction. 2. Bilateral adnexal soft tissue nodule likely ovarian with a suspected cyst on the right measuring 1 .6 cm. Follow-up pelvic ultrasound recommended. #3 anterior abdominal wall hernia containing peritone al fat. 3. There are bilateral adrenal masses greater on the right as measured above which are nonspecific. M RI follow-up suggested.
[2018-10-06 15:58] VITALS: PULSE 84
--- NOTE | 2018-10-06 17:12 | P.DS ---
Providers Date of admission: 10/01/18 19:52 Expected date of discharge: 10/06/18 Attending physician: America Martell Consults: 09/29/18 01:10 Consult Physician Urgent Consulting Provider: [facility] Reason/Comments: chest pain Do you want consulting provider notified?: Yes, Notify in am 09/29/18 13:38 Consult Physician Routine Consulting Provider: Lopez Baird Consult Reason/Comments: Shortness of breath; known patient Do you want consulting provider notified?: Yes 09/29/18 13:40 Consult Physician Routine Consulting Provider: Baldev Diaz Consult Reason/Comments: sinusitis Do you want consulting provider notified?: Yes Primary care physician: [facility] Course: Final Diagnoses: Final diagnoses chest pain, atypical as per cardiology Hypertensive urgency, stable Acute sinusitis, of the left maxillary sinusitis History of COPD/asthma, with possible mild exacerbation history of GERD Essential hypertension, was uncontrolled on admission. 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 next appointment is going to be this coming November 2018 [facility] course:This is a pleasant 53 years old female with past medical history of asthma/COPD, GERD, hypertension, osteoarthritis, pneumonia left renal cell carcinoma in 2017. Bilateral adrenal masses. Left leg DVT. patient presents because of her high blood pressure. Patient says that yesterday she was sitting in bed she felt and well while she's going in and out of the restroom. She felt chest pain with some dyspnea and dizziness. Patient states that her chest pain was 10/10 below her left breast nonradiating but sometimes goes to her left arm, felt squeezing in character, associated with some dyspnea and she felt a little bit dizzy with headache. Also patient complaining of from coughing with greenish phlegm for the last few days and she thinks that her sinuses infection coming back to her as there was some blood in her greenish discharge. Of note the patient has been treated with steroids and antibiotics for sinus infection about 2-3 weeks ago.on admission Vitas looks stable she has negative d-dimer at 0.44. CBC and BMP were unremarkable. She has several negative troponin. chest x-ray showing any mild subsegmental atelectasis similar to old exam with normal heart.Doppler was negative for DVT in the left leg.patient has been evaluated by process owner who adjusted her blood pressure medication and recommended to increase activity and cleared her for discharge.Evaluated by pulmonary, cleared patient for discharge. Evaluated by a ENT, placed on doxycycline, and cleared patient for discharge .Blood pressure meds further adjusted for tighter blood pressure control. Significant clinical improvement. Patient is being discharged home in a stable condition with guarded prognosis. Advised to follow-up with her own oncologist and roll forming supervisor as advised. Exam GENERAL: The patient is alert and oriented x3, not in any acute distress. Well developed, well nourished. CARDIOVASCULAR: S1 and S2 present. No murmurs, rubs, or gallops. PULMONARY: Chest is clear to auscultation, no wheezing or crackles. ABDOMEN: Soft, nontender, nondistended, normoactive bowel sounds. No palpable organomegaly. NEUROLOGICAL: Gross neurological examination did not reveal any focal deficits. The impression and plan of care has been dictated as directed. : I performed a history and examination of this patient, discussed the same with the dictator. I agree with the dictator's note ,documented as a scribe. Any additional findings or plans will be noted. Time taken: 35 minutes Patient Condition at Discharge: Stable Plan - Discharge Summary Discharge Rx Participant: Yes New Discharge Prescriptions: New Acetaminophen Tab [Tylenol Tab] 650 mg PO Q6H #1 tablet Clindamycin [Cleocin] 300 mg PO BID #20 cap Fluticasone Nasal [place] [Flonase Nasal [place]] 2 spray EA NOSTRIL DAILY #1 spr guaiFENesin-DM 100-10MG/5ML [Robitussin DM] 10 ml PO Q6H PRN cup PRN Reason: Cough Nystatin 100,000 Unit/ml Susp [Mycostatin Oral Susp] 500,000 unit PO QID # 140 ml Polyethylene Glycol 3350 [Miralax] 17 gm PO HS powd.pack predniSONE 10 mg PO DIRECTED #30 tab Famotidine [Pepcid] 20 mg PO BID #60 tab Losartan [Cozaar] 50 mg PO BID #60 tab Continue Budesonide-Formot 160-4.5 Mcg [Symbicort 160-4.5 Mcg Inhaler] 2 puff INHALATION RT-BID Furosemide [Lasix] 20 mg PO DAILY Atorvastatin [Lipitor] 20 mg PO DAILY Albuterol Inhaler [Ventolin Hfa Inhaler] 2 puff INHALATION RT-QID PRN PRN Reason: Shortness Of Breath Baclofen [Lioresal] 10 mg PO TID Isosorbide Mononitrate ER [Imdur] 30 mg PO DAILY Nitroglycerin Sl Tabs [Nitrostat] 0.4 mg SUBLINGUAL Q5M PRN tab PRN Reason: Chest Pain Loratadine [Claritin] 10 mg PO HS #7 tab Docusate [Colace] 100 mg PO DAILY Metoprolol Tartrate [Lopressor] 50 mg PO HS Metoprolol Tartrate [Lopressor] 100 mg PO QAM Ipratropium-Albuterol Nebulize [Duoneb 0.5 mg-3 mg/3 ml Soln] 3 ml INHALATION RT-TID Discharge Medication List Budesonide-Formot 160-4.5 Mcg [Symbicort 160-4.5 Mcg Inhaler] 2 puff INHALATION RT-BID 08/05/14 [History] Atorvastatin [Lipitor] 20 mg PO DAILY 11/06/16 [History] Furosemide [Lasix] 20 mg PO DAILY 11/06/16 [History] Albuterol Inhaler [Ventolin Hfa Inhaler] 2 puff INHALATION RT-QID PRN 07/14/17 [ History] Baclofen [Lioresal] 10 mg PO TID 11/10/17 [History] Isosorbide Mononitrate ER [Imdur] 30 mg PO DAILY 11/10/17 [History] Loratadine [Claritin] 10 mg PO HS #7 tab 12/29/17 [Rx] Nitroglycerin Sl Tabs [Nitrostat] 0.4 mg SUBLINGUAL Q5M PRN tab 12/29/17 [Rx] Docusate [Colace] 100 mg PO DAILY 09/28/18 [History] Ipratropium-Albuterol Nebulize [Duoneb 0.5 mg-3 mg/3 ml Soln] 3 ml INHALATION RT -TID 09/28/18 [History] Metoprolol Tartrate [Lopressor] 50 mg PO HS 09/28/18 [History] Metoprolol Tartrate [Lopressor] 100 mg PO QAM 09/28/18 [History] Acetaminophen Tab [Tylenol Tab] 650 mg PO Q6H #1 tablet 01/21/19 [Rx] Clindamycin [Cleocin] 300 mg PO BID #20 cap 10/05/18 [Rx] Fluticasone Nasal [place] [Flonase Nasal [place]] 2 spray EA NOSTRIL DAILY #1 spr [Rx] Nystatin 100,000 Unit/ml Susp [Mycostatin Oral Susp] 500,000 unit PO QID #140 ml 10/05/18 [Rx] Polyethylene Glycol 3350 [Miralax] 17 gm PO HS powd.pack 10/05/18 [Rx] guaiFENesin-DM 100-10MG/5ML [Robitussin DM] 10 ml PO Q6H PRN cup 10/05/18 [Rx] predniSONE 10 mg PO DIRECTED #30 tab 10/05/18 [Rx] Famotidine [Pepcid] 20 mg PO BID #60 tab 10/06/18 [Rx] Losartan [Cozaar] 50 mg PO BID #60 tab 10/06/18 [Rx] Follow up Appointment(s)/Referral(s): Oncology, Pt's own [Other] - 1 Week Florinda Matos MD [Primary Care Provider] - 3 Days Baldev Diaz DO [Doctor of Osteopathic Medicine] - 1 Week Arnold Disla DO [REFERRING] - 2 Weeks (Endocrinology, after steroid taper completed) [facility], [NON-STAFF] - 1-2 Days Lopez Baird MD [STAFF PHYSICIAN] - 1 Week Sakina Leal MD [STAFF PHYSICIAN] - 10/13/18 10:45 am Ambulatory/Diagnostic Orders: Basic Metabolic Panel [LAB.AMB] Time Frame: 3 Days, Location: None Selected Complete Blood Count w/diff [LAB.AMB] Time Frame: 3 Days, Location: None Selected Patient Instructions/Handouts: COPD (Chronic Obstructive Pulmonary Disease) (DC ) Activity/Diet/Wound Care/Special Instructions: COnfirm Cardiology F/U apt. prior to dc
[2018-10-06 17:14] LABS: Glucose,Whole Blood 158 mg/dL (75-99)
[2018-10-07] MEDS ORDERED: predniSONE 10 MG TAB PO SCH (09:00)
== END 2018-10-06 18:53 | disposition home health service (06) | DRG 313 ==
LOC: EC 22:17 → 1SOBS 09-29 01:31 → OBSVTOIN 10-01 19:52 → 4MS4W 10-02 16:59
PROVIDERS: ADMIT Internal Medicine; ATTEND Internal Medicine
DX: R07.89 Other chest pain (principal); J45.901 Unspecified asthma with (acute) exacerbation; Z68.41 Body mass index [BMI] 40.0-44.9, adult; R04.2 Hemoptysis; E66.01 Morbid (severe) obesity due to excess calories; J43.2 Centrilobular emphysema; J20.9 Acute bronchitis, unspecified; I16.0 Hypertensive urgency; I10 Essential (primary) hypertension; J01.00 Acute maxillary sinusitis, unspecified; E27.9 Disorder of adrenal gland, unspecified; E78.5 Hyperlipidemia, unspecified; E78.00 Pure hypercholesterolemia, unspecified; M19.90 Unspecified osteoarthritis, unspecified site; R32 Unspecified urinary incontinence; J34.3 Hypertrophy of nasal turbinates; K44.9 Diaphragmatic hernia without obstruction or gangrene; K21.9 Gastro-esophageal reflux disease without esophagitis; H91.91 Unspecified hearing loss, right ear; Z71.3 Dietary counseling and surveillance; Z79.51 Long term (current) use of inhaled steroids; Z79.899 Other long term (current) drug therapy; Z86.74 Personal history of sudden cardiac arrest; Z87.01 Personal history of pneumonia (recurrent); Z90.5 Acquired absence of kidney; Z86.718 Personal history of other venous thrombosis and embolism; Z85.528 Personal history of other malignant neoplasm of kidney; Z90.49 Acquired absence of other specified parts of digestive tract; Z86.010 Personal history of colon polyps; Z90.710 Acquired absence of both cervix and uterus; Z87.891 Personal history of nicotine dependence; Z99.89 Dependence on other enabling machines and devices; Z98.51 Tubal ligation status; Z88.1 Allergy status to other antibiotic agents; Z91.012 Allergy to eggs; Z91.02 Food additives allergy status; Z91.040 Latex allergy status; Z91.018 Allergy to other foods; Z88.0 Allergy status to penicillin; Z88.8 Allergy status to other drugs, medicaments and biological substances; Z82.49 Family history of ischemic heart disease and other diseases of the circulatory system; Z80.3 Family history of malignant neoplasm of breast; Z83.3 Family history of diabetes mellitus; Z82.69 Family history of other diseases of the musculoskeletal system and connective tissue; Z83.2 Family history of diseases of the blood and blood-forming organs and certain disorders involving the immune mechanism; Z83.6 Family history of other diseases of the respiratory system
CPT/HCPCS: 36415; 70486; 71046; 71275; 74176; 80048; 80053; 80061; 82550; 82553; 83036; 83735; 83880; 84484; 85025; 85379; 85610; 85730; 87502; 93005; 93306; 94640; 94760; 99285

== ENCOUNTER 2019-06-02 13:55 | Emergency (ER) | payer OTHER ==
[2019-06-02] MEDS ORDERED: ALBUTEROL NEBULIZED 2.5 MG/3 ML INHALATION STA (14:43)
[2019-06-02] MEDS ORDERED: IPRATROPIUM 0.5 MG/2.5 ML NEBU INHALATION STA (14:43)
[2019-06-02 14:59] VITALS: RESP 16
[2019-06-02 15:01] VITALS: TEMP 97.5
--- NOTE | 2019-06-02 15:26 | ED ---
General Adult HPI - General Chief complaint: Shortness of Breath Stated complaint: SOB, Back Pain Time Seen by Provider: 06/02/19 14:10 Source: patient, RN notes reviewed Mode of arrival: ambulatory Limitations: no limitations - History of Present Illness Initial comments: This is a 54-year-old female presents emergency department stating that she has a past medical history significant for smoking and COPD. Patient comes in today because she started having shortness of breath about 30 minutes prior to arrival. Patient denies any chest pain or palpitations. Patient denies any recent fever or chills. Patient denies any lightheadedness or dizziness. Patient headache patient denies numbness weakness. Patient denies any leg swelling or calf tenderness. Patient denies any abdominal pain patient denies vomiting or diarrhea. - Related Data Home Medications Medication Instructions Recorded Confirmed Budesonide-Formot 160-4.5 Mcg 2 puff INHALATION RT-BID 08/05/14 06/02/19 [Symbicort 160-4.5 Mcg Inhaler] Atorvastatin [Lipitor] 20 mg PO DAILY 11/06/16 06/02/19 Furosemide [Lasix] 20 mg PO DAILY 11/06/16 06/02/19 Isosorbide Mononitrate ER [Imdur] 30 mg PO DAILY 11/10/17 06/02/19 Docusate [Colace] 100 mg PO DAILY 09/28/18 06/02/19 Ipratropium-Albuterol Nebulize 3 ml INHALATION RT-Q6H 09/28/18 06/02/19 [Duoneb 0.5 mg-3 mg/3 ml Soln] Metoprolol Tartrate [Lopressor] 50 mg PO BID 09/28/18 06/02/19 Acetaminophen Tab [Tylenol Tab] 1,000 mg PO Q6HR PRN 06/02/19 06/02/19 Albuterol Sulfate [Albuterol 2 puff INHALATION RT-Q6H PRN 06/02/19 06/02/19 Sulfate Hfa] Previous Rx's Medication Instructions Recorded Loratadine [Claritin] 10 mg PO HS #7 tab 12/29/17 Nitroglycerin Sl Tabs [Nitrostat] 0.4 mg SUBLINGUAL Q5M PRN tab 12/29/17 predniSONE 40 mg PO DAILY #8 tab 06/02/19 Allergies Allergy/AdvReac Type Severity Reaction Status Date / Time alprazolam [From Xanax] Allergy Anaphylaxis Verified 06/02/19 14:37 aspirin Allergy Rash/Hives Verified 06/02/19 14:37 azithromycin Allergy Rapid Verified 06/02/19 14:37 Heart Rate bupropion HCl [From Zyban] Allergy Rash/Hives Verified 06/02/19 14:37 coconut Allergy Rash/Hives Verified 06/02/19 14:37 codeine Allergy Anaphylaxis Verified 06/02/19 14:37 diltiazem [From Cardizem] Allergy Anaphylaxis Verified 06/02/19 14:37 hydrocodone [From Orcas] Allergy Rash/Hives Verified 06/02/19 14:37 Latex, Natural Rubber Allergy Rash/Hives, Verified 06/02/19 14:37 throat swelling levofloxacin [From Levaquin] Allergy Anaphylaxis Verified 06/02/19 14:37 Penicillins Allergy Rash/Hives Verified 06/02/19 14:37 joseph Allergy Swelling Verified 06/02/19 14:37 tree nut [Pecan] Allergy Swelling Verified 06/02/19 14:37 nadolol AdvReac Rash/Hives Verified 06/02/19 14:37 Review of Systems ROS Statement: Those systems with pertinent positive or pertinent negative responses have been documented in the HPI. ROS Other: All systems not noted in ROS Statement are negative. 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 Bilateral adrenal masses being monitored, DVT L leg, urinary incontinence-wears depends, cardiac murmur as a teen, makah r ear. Emphysema. lung nodules History of Any Multi-Drug Resistant Organisms: None Reported Past Surgical History: Adenoidectomy, Appendectomy, Bladder Surgery, Cholecystectomy, Hernia Repair, Hysterectomy, Tonsillectomy, Tubal Ligation Additional Past Surgical History / Comment(s): 06/04/17 cyst on left kidney removed, L kidney cyst aspiration, bilateral inguinal hernia repairs, bladder sling, bile duct surgery, lt breast bx-neg-clip in place, colonoscopy/polyps removed, uterus and cervix removed but still has ovaries and fallopian tubes.skin bx lt shoulder neg. heart cath 07/15/2017 Past Anesthesia/Blood Transfusion Reactions: No Reported Reaction Additional Past Anesthesia/Blood Transfusion Reaction / Comment(s): 1987- on operating table and 'iraj had to resuscitate Past Psychological History: No Psychological Hx Reported Smoking Status: Former smoker Past Alcohol Use History: None Reported Past Drug Use History: None Reported - Past Family History Mother Family Medical History: Cancer, Congestive Heart Failure (CHF), Sleep Apnea/CPAP/BIPAP Additional Family Medical History / Comment(s): Mother had breast cancer. She from CHF at the age of 55 yrs. Father Family Medical History: Cancer, Diabetes Mellitus Additional Family Medical History / Comment(s): Father from diabetic complications at the age of 60 yrs. He had brittle bone disease. Brother(s) Family Medical History: Deep Vein Thrombosis (DVT) General Exam - General Exam Comments Initial Comments: GENERAL: Patient is well-developed and well-nourished. Patient is nontoxic and well- hydrated and is in no acute distress. ENT: Neck is soft and supple. No significant lymphadenopathy is noted. Oropharynx is clear. Moist mucous membranes. Neck has full range of motion without eliciting any pain. EYES: The sclera were anicteric and conjunctiva were pink and moist. Extraocular movements were intact and pupils were equal round and reactive to light. Eyelids were unremarkable. PULMONARY: Unlabored respirations. Patient has some slight expiratory wheezing CARDIOVASCULAR: There is a regular rate and rhythm without any murmurs gallops or rubs. ABDOMEN: Soft and nontender with normal bowel sounds. No palpable organomegaly was noted. There is no palpable pulsatile mass. SKIN: Skin is clear with no lesions or rashes and otherwise unremarkable. NEUROLOGIC: Patient is alert and oriented x3. Cranial nerves II through XII are grossly intact. Motor and sensory are also intact. Normal speech, volume and content. Symmetrical smile. MUSCULOSKELETAL: Normal extremities with adequate strength and full range of motion. No lower extremity swelling or edema. No calf tenderness. LYMPHATICS: No significant lymphadenopathy is noted PSYCHIATRIC: Normal psychiatric evaluation. Limitations: no limitations Course Vital Signs 06/02/19 06/02/19 06/02/19 14:07 14:11 14:58 Temperature 98.1 F 97.5 F L Pulse Rate 98 88 Respiratory 18 16 16 Rate Blood Pressure 129/85 152/105 O2 Sat by Pulse 98 97 Oximetry 06/02/19 06/02/19 06/02/19 15:30 15:34 15:37 Temperature Pulse Rate 87 86 Respiratory Rate Blood Pressure 133/65 O2 Sat by Pulse Oximetry Medical Decision Making - Medical Decision Making EKG shows normal sinus rhythm at 82 bpm CO interval 240 QRS 76 QT interval 352 QTC is 411. EKG shows no ST segment elevation or depression Patient received a breathing treatment any murmurs or as well as steroids. I went back in to reevaluate the patient she only had occasional scattered wheezing. She stated she felt better. Patient be discharged home with steroids and she has a nebulizer home with albuterol. - Lab Data Result diagrams: 06/02/19 15:02 06/02/19 15:02 Lab Results 06/02/19 06/02/19 06/02/19 Range/Units 15:02 15:02 15:02 WBC 8.6 (3.8-10.6) k/uL RBC 4.55 (3.80-5.40) m/uL Hgb 12.9 (11.4-16.0) gm/dL Hct 39.2 (34.0-46.0) % MCV 86.3 (80.0-100.0) fL MCH 28.4 (25.0-35.0) pg MCHC 33.0 (31.0-37.0) g/dL RDW 15.1 (11.5-15.5) % Plt Count 262 (150-450) k/uL Neutrophils % 78 % Lymphocytes % 15 % Monocytes % 4 % Eosinophils % 1 % Basophils % 0 % Neutrophils # 6.7 (1.3-7.7) k/uL Lymphocytes # 1.3 (1.0-4.8) k/uL Monocytes # 0.4 (0-1.0) k/uL Eosinophils # 0.1 (0-0.7) k/uL Basophils # 0.0 (0-0.2) k/uL PT 9.8 (9.0-12.0) sec INR 0.9 (<1.2) APTT 22.8 (22.0-30.0) sec D-Dimer 0.29 (<0.60) mg/L FEU Sodium 139 (137-145) mmol/L Potassium 3.9 (3.5-5.1) mmol/L Chloride 105 (98-107) mmol/L Carbon Dioxide 22 (22-30) mmol/L Anion Gap 12 mmol/L BUN 10 (7-17) mg/dL Creatinine 0.78 (0.52-1.04) mg/dL Est GFR (CKD-EPI)AfAm >90 (>60 ml/min/1.73 sqM) Est GFR (CKD-EPI)NonAf 88 (>60 ml/min/1.73 sqM) Glucose 93 (74-99) mg/dL Calcium 9.6 (8.4-10.2) mg/dL Total Bilirubin 0.6 (0.2-1.3) mg/dL AST 23 (14-36) U/L ALT 19 (9-52) U/L Alkaline Phosphatase 95 (38-126) U/L Troponin I (0.000-0.034) ng/mL Total Protein 7.5 (6.3-8.2) g/dL Albumin 4.1 (3.5-5.0) g/dL 06/02/19 Range/Units 15:02 WBC (3.8-10.6) k/uL RBC (3.80-5.40) m/uL Hgb (11.4-16.0) gm/dL Hct (34.0-46.0) % MCV (80.0-100.0) fL MCH (25.0-35.0) pg MCHC (31.0-37.0) g/dL RDW (11.5-15.5) % Plt Count (150-450) k/uL Neutrophils % % Lymphocytes % % Monocytes % % Eosinophils % % Basophils % % Neutrophils # (1.3-7.7) k/uL Lymphocytes # (1.0-4.8) k/uL Monocytes # (0-1.0) k/uL Eosinophils # (0-0.7) k/uL Basophils # (0-0.2) k/uL PT (9.0-12.0) sec INR (<1.2) APTT (22.0-30.0) sec D-Dimer (<0.60) mg/L FEU Sodium (137-145) mmol/L Potassium (3.5-5.1) mmol/L Chloride (98-107) mmol/L Carbon Dioxide (22-30) mmol/L Anion Gap mmol/L BUN (7-17) mg/dL Creatinine (0.52-1.04) mg/dL Est GFR (CKD-EPI)AfAm (>60 ml/min/1.73 sqM) Est GFR (CKD-EPI)NonAf (>60 ml/min/1.73 sqM) Glucose (74-99) mg/dL Calcium (8.4-10.2) mg/dL Total Bilirubin (0.2-1.3) mg/dL AST (14-36) U/L ALT (9-52) U/L Alkaline Phosphatase (38-126) U/L Troponin I <0.012 (0.000-0.034) ng/mL Total Protein (6.3-8.2) g/dL Albumin (3.5-5.0) g/dL Disposition Clinical Impression: COPD (chronic obstructive pulmonary disease) Disposition: HOME SELF-CARE Instructions (If sedation given, give patient instructions): COPD (Chronic Obstructive Pulmonary Disease) (ED) Prescriptions: predniSONE 40 mg PO DAILY #8 tab Is patient prescribed a controlled substance at d/c from ED?: No Referrals: Florinda Matos MD [Primary Care Provider] - 1-2 days Time of Disposition: 16:27
--- NOTE | 2019-06-02 15:28 | XR ---
EXAMINATION TYPE: XR chest 2V DATE OF EXAM: 06/02/2019 COMPARISON: Chest x-ray September 28, 2018. CTA chest October 01, 2018. HISTORY: Cough and shortness of breath. Left-sided pain. TECHNIQUE: Frontal and lateral views of the chest are obtained. FINDINGS: There is background chronic parenchymal change without suspicious new focal air space opac ity, pleural effusion, or pneumothorax seen. The cardiac silhouette size remains within normal limit s. Overlying EKG leads are seen. The osseous structures are intact. IMPRESSION: No acute pulmonary process.
[2019-06-02 15:33] LABS: ALT 19 U/L (9-52); AST 23 U/L (14-36); African American GFR (CKD) >90 (>60 ml/min/1.73 sqM); Albumin 4.1 g/dL (3.5-5.0); Alkaline Phosphatase 95 U/L (38-126); Anion Gap 12 mmol/L; Blood Urea Nitrogen 10 mg/dL (7-17); Calcium 9.6 mg/dL (8.4-10.2); Carbon Dioxide 22 mmol/L (22-30); Chloride 105 mmol/L (98-107); Glucose 93 mg/dL (74-99); Potassium 3.9 mmol/L (3.5-5.1); Sodium 139 mmol/L (137-145); Total Bilirubin 0.6 mg/dL (0.2-1.3); Total Protein 7.5 g/dL (6.3-8.2)
[2019-06-02 15:39] LABS: Basophils % (A) 0 %; Eosinophils # (A) 0.1 k/uL (0-0.7); Eosinophils % (A) 1 %; HCT 39.2 % (34.0-46.0); HGB 12.9 gm/dL (11.4-16.0); Lymphocytes # (A) 1.3 k/uL (1.0-4.8); Lymphocytes % (A) 15 %; MCH 28.4 pg (25.0-35.0); MCV 86.3 fL (80.0-100.0); Mean Platelet Volume 7.3; Monocytes # (A) 0.4 k/uL (0-1.0); Monocytes % (A) 4 %; Neutrophils # (A) 6.7 k/uL (1.3-7.7); Neutrophils % (A) 78 %; Platelet Count 262 k/uL (150-450); RBC 4.55 m/uL (3.80-5.40); RDW 15.1 % (11.5-15.5); WBC 8.6 k/uL (3.8-10.6)
[2019-06-02 15:45] LABS: D-Dimer 0.29 mg/L FEU (<0.60); INR 0.9 (<1.2); Partial Thromboplastin Time 22.8 sec (22.0-30.0); Prothrombin Time 9.8 sec (9.0-12.0)
[2019-06-02] MEDS ORDERED: methylPREDNISolone SOD SUCCI 125 MG/2 ML VIAL IV STA (16:26)
[2019-06-02 16:40] VITALS: BP 133/85; PULSE 84
== END 2019-06-02 16:35 | disposition home or self-care (01) ==
LOC: EC 13:55
DX: J44.9 Chronic obstructive pulmonary disease, unspecified (principal); R51 Headache; I10 Essential (primary) hypertension; H91.91 Unspecified hearing loss, right ear; Z87.891 Personal history of nicotine dependence; Z88.0 Allergy status to penicillin; Z88.1 Allergy status to other antibiotic agents; Z88.5 Allergy status to narcotic agent; Z88.6 Allergy status to analgesic agent; Z88.8 Allergy status to other drugs, medicaments and biological substances; Z91.018 Allergy to other foods; Z91.040 Latex allergy status; Z91.048 Other nonmedicinal substance allergy status; Z79.51 Long term (current) use of inhaled steroids; Z79.899 Other long term (current) drug therapy; Z87.01 Personal history of pneumonia (recurrent); Z85.528 Personal history of other malignant neoplasm of kidney
CPT/HCPCS: 36415; 94640; 93005; 85379; 80053; 84484; 85025; 85610; 85730; 71046; 99285; 96374; J2930

== ENCOUNTER → 2020-10-05 | Outpatient (CLI) | payer OTHER ==
[2020-10-05 16:47] LABS: HCT 37.7 % (34.0-46.0); HGB 12.5 gm/dL (11.4-16.0); MCH 29.1 pg (25.0-35.0); MCHC 33.2 g/dL (31.0-37.0); MCV 87.6 fL (80.0-100.0); Mean Platelet Volume 7.4; Platelet Count 244 k/uL (150-450); RDW 13.3 % (11.5-15.5); WBC 5.8 k/uL (3.8-10.6)
[2020-10-06 04:22] LABS: Magnesium 1.9 mg/dL (1.5-2.4)
== END | disposition home or self-care (01) ==
LOC: LABWHC1 16:13
PROVIDERS: ATTEND Internal Medicine Clinical Cardiac Electrophysiology
DX: Z01.818 Encounter for other preprocedural examination (principal); R55 Syncope and collapse
CPT/HCPCS: 36415; 80051; 83735; 84520; 85027

== ENCOUNTER → 2020-10-09 | Day surgery (SDC) | payer OTHER ==
[2020-10-06 11:37] VITALS: BMI 41.9
[~2020-10-09] MED LIST changes: +CLINDAMYCIN 900 MG in DEXTROSE 5% IN WATER 50 ML IVPB ONE; -LACTATED RINGERS 1,000 ML IV SCH; +LIDOCAINE 1% INJ 10MG/ML (20 ML MDV) ONE; +LIDOCAINE 1% INJ 10MG/ML (20 ML MDV) SQ ONE; -Pre Op ABX Message 1 EACH MISC MISCELLANE ONE; +SODIUM CHLORIDE 0.9% 1,000 ML IV SCH; +fentaNYL (PF) 50 MCG/ML 2 ML AMP IV ONE; -fentaNYL (PF) 50 MCG/ML 2 ML AMP IV PRN; +fentaNYL (PF) 50 MCG/ML 2 ML AMP ONE
[2020-10-09 06:54] VITALS: RESP 18; TEMP 98.3
--- NOTE | 2020-10-09 08:11 | P.EPPROC ---
- EP Procedure Note Electrophysiology Procedure Note: Loop monitor implant Primary physicians: Dr. Matos Painter Aircraft: Dr. Machuca Indication: Recurrent syncope Patient was brought to the EP lab in a fasting state. Written informed consent was obtained prior to the procedure. The left pectoral area was prepped and draped per protocol. Intravenous antibiotic was administered preoperatively. A subcutaneous Loop monitor was implanted successfully and the wound was closed per protocol. The device was programmed to detect significant ava- arrhythmic and tachy-arrhythmic events, per protocol. Device and programming details: Syncope protocol Patient underwent EP procedure under conscious sedation/moderate sedation, monitoring of the level of consciousness and physiologic parameters including but not limited to vital signs and oxygenation. Patient tolerated the procedure well without any acute complications. Start time: 740 Stop time: 415
--- NOTE | 2020-10-09 08:13 | P.PRLE ---
RE: CherSilva Dear Dr. Matos Mrs. Kwon has had 2 episodes of loss of consciousness over the last one year. She describes the VF electrical sensation in her chest prior to loss of consciousness and dizziness So far her workup has not revealed the cause of her loss of consciousness A loop monitor was implanted and hopefully this will shed some light on her rhythm at the time of these episodes She will continue to follow-up with you and Dr. Machuca as before. Thank you for entrusting me with the care of the patient Warm regards Sincerely Sly Caldwell
[2020-10-09 08:55] VITALS: BP 122/74; PULSE 61
== END ==
LOC: CATHEP 06:30
PROVIDERS: ATTEND Internal Medicine Clinical Cardiac Electrophysiology
DX: R55 Syncope and collapse (principal); R42 Dizziness and giddiness; R07.9 Chest pain, unspecified; R68.3 Clubbing of fingers; R00.2 Palpitations; J44.0 Chronic obstructive pulmonary disease with (acute) lower respiratory infection; J22 Unspecified acute lower respiratory infection; I12.9 Hypertensive chronic kidney disease with stage 1 through stage 4 chronic kidney disease, or unspecified chronic kidney disease; N18.9 Chronic kidney disease, unspecified; E27.8 Other specified disorders of adrenal gland; E78.5 Hyperlipidemia, unspecified; G47.33 Obstructive sleep apnea (adult) (pediatric); R73.03 Prediabetes; M06.9 Rheumatoid arthritis, unspecified; L85.3 Xerosis cutis; E66.9 Obesity, unspecified; Z91.048 Other nonmedicinal substance allergy status; Z88.0 Allergy status to penicillin; Z85.528 Personal history of other malignant neoplasm of kidney; Z90.5 Acquired absence of kidney; Z86.72 Personal history of thrombophlebitis; Z86.2 Personal history of diseases of the blood and blood-forming organs and certain disorders involving the immune mechanism; Z98.890 Other specified postprocedural states; Z72.0 Tobacco use; Z79.899 Other long term (current) drug therapy; Z79.51 Long term (current) use of inhaled steroids; Z88.6 Allergy status to analgesic agent; Z88.8 Allergy status to other drugs, medicaments and biological substances; Z88.5 Allergy status to narcotic agent; Z91.040 Latex allergy status; Z68.41 Body mass index [BMI] 40.0-44.9, adult
CPT/HCPCS: 33285; C1764; J2001; J3010

== ENCOUNTER → 2021-02-23 | Outpatient (CLI) | payer OTHER ==
[2021-02-23 13:52] LABS: African American GFR (CKD) >90 (>60 ml/min/1.73 sqM); Blood Urea Nitrogen 7 mg/dL (7-17); Non-African American GFR(CKD) >90 (>60 ml/min/1.73 sqM)
--- NOTE | 2021-02-23 14:46 | CT ---
EXAMINATION TYPE: CT ankle LT w con DATE OF EXAM: 02/23/2021 COMPARISON: None HISTORY: Lt ankle Effusion CT DLP: 364 mGycm Automated exposure control for dose reduction was used. Contrast: None Technique: Axial images through millimeters thick sections. Reconstructed images in the sagittal plan e. FINDINGS: There is some mild soft tissue swelling over the lateral malleolus. Some minimal medial malleolar sof t tissue swelling may be present. The osseous structures appear intact. There is a plantar calcaneal heel spur. No suspicious cortical erosions are evident. No acute fractures are evident. Joint spaces are preserved. No dislocations are evident. IMPRESSION: 1. SOFT TISSUE SWELLING AT THE LATERAL MALLEOLUS AND TO A LESSER DEGREE THE MEDIAL MALLEOLUS. 2. PLANTAR CALCANEAL HEEL SPUR. 3. IF CLOSER EVALUATION IS REQUIRED, MRI COULD BE PERFORMED.
== END | disposition home or self-care (01) ==
LOC: RADCTMAIN 13:05
PROVIDERS: ATTEND Internal Medicine Rheumatology
DX: M77.32 Calcaneal spur, left foot (principal)
CPT/HCPCS: 82565; 84520; 36415; 73701; Q9967

== ENCOUNTER → 2023-02-12 | Outpatient (CLI) | payer OTHER ==
[2023-02-12 14:45] LABS: Basophils # (A) 0.04 X 10*3/uL (0.00-0.10); Basophils % (A) 0.5 %; Eosinophils # (A) 0.27 X 10*3/uL (0.04-0.35); Eosinophils % (A) 3.4 %; HCT 35.2 % (37.2-46.3); HGB 10.2 g/dL (12.0-15.0); Immature Grans, Automated 0.4 %; Lymphocytes % (A) 18.9 %; MCH 25.7 pg (27.0-32.0); MCV 88.7 fL (80.0-97.0); Monocytes # (A) 0.53 X 10*3/uL (0.20-1.00); Monocytes % (A) 6.7 %; NRBC Per 100 WBC 0 /100 WBCS (0.0-0.0); Neutrophils # (A) 5.55 X 10*3/uL (1.80-7.70); Neutrophils % (A) 70.1 %; Platelet Count 370 X 10*3/uL (140-440); RBC 3.97 X 10*6/uL (4.10-5.20); RDW 14.7 % (11.5-14.5); WBC 7.92 X 10*3/uL (4.50-10.00)
[2023-02-12 14:56] LABS: Appearance,Urine Clear (Clear); Bilirubin,Urine Negative (Negative); Blood,Urine Negative (Negative); Color,Urine Yellow (Yellow); Ketones,Urine Negative (Negative); Nitrite,Urine Positive (Negative); PH, Urine 6.5 (5.0-8.0); Specific Gravity,Urine 1.013 (1.001-1.030); Urobilinogen,Urine 0.2 (0.2,1.0)
[2023-02-12 14:59] LABS: Bacteria,Urine 4+ /HPF (None Seen)
[2023-02-12 15:17] LABS: ALT 14 U/L (8-44); AST 14 U/L (13-35); African American GFR (CKD) 96.2 (60.0-200.0); Albumin 3.7 g/dL (3.8-4.9); Albumin/Globulin Ratio 1.37 (1.60-3.17); Alkaline Phosphatase 92 U/L (41-126); BUN/Creat Ratio 13.38 Ratio (12.00-20.00); Blood Urea Nitrogen 10.7 mg/dL (9.0-27.0); Calcium 9.1 mg/dL (8.7-10.3); Chloride 108 mmol/L (96-109); Globulin 2.7 g/dL (1.6-3.3); Glucose 107 mg/dL (70-110); Potassium 3.9 mmol/L (3.5-5.5); Sodium 144 mmol/L (135-145); Total Bilirubin <0.15 mg/dL (0.30-1.20); Total Protein 6.4 g/dL (6.2-8.2)
== END | disposition home or self-care (01) ==
LOC: LABWHC1 08:36
PROVIDERS: ATTEND Internal Medicine Infectious Disease
DX: N39.0 Urinary tract infection, site not specified (principal)
CPT/HCPCS: 36415; 80053; 81001; 84145; 85025; 86140

== ENCOUNTER → 2024-05-12 | Outpatient (CLI) | payer OTHER ==
--- NOTE | 2024-05-12 11:32 | XR ---
EXAMINATION TYPE: XR chest 2V DATE OF EXAM: 05/12/2024 10:59 AM CLINICAL INDICATION: Female, 59 years old with history of J43.8 OTHER EMPHYSEMA; [facility] COMPARISON: Chest radiographs from 06/02/2019 TECHNIQUE: XR chest 2V Frontal view of the chest. FINDINGS: Lungs/Pleura: Low lung volumes are present. There is no evidence of pleural effusion, focal consolida tion, or pneumothorax. Pulmonary vascularity: Unremarkable. Heart/mediastinum: Cardiomediastinal silhouette is unremarkable. A loop recorder projects over the le ft thorax over the heart. Musculoskeletal: No acute osseous pathology. Other findings: None Lines/Tubes: IMPRESSION: Low lung volumes with a generalized hazy appearance which could represent atelectasis versus pulmonar y edema correlate with serum BNP.
== END | disposition home or self-care (01) ==
LOC: RADXRMAIN 10:33
PROVIDERS: ATTEND Internal Medicine Hematology & Oncology
DX: J43.8 Other emphysema
CPT/HCPCS: 71046